=== PATIENT | female | born 1940 | race Caucasian/White ===

== ENCOUNTER 2016-04-30 11:57 | Outpatient (CLI) | payer MEDICARE, OTHER | END 2016-04-30 11:58 | disposition home or self-care (01) | DX: J18.9 Pneumonia, unspecified organism (principal) ==

== ENCOUNTER 2016-07-22 08:02 | Outpatient (CLI) | payer MEDICARE, OTHER ==
[2016-07-22 14:44] LABS: CHOL/HDL RATIO 2.7 (<4.4); CHOLESTEROL 165 mg/dL; HDL CHOLESTEROL 62 mg/dL; LDL/HDL RATIO 1.4 (<4.4); TRIGLYCERIDES 74 mg/dL; VLDL CHOLESTEROL 15 mg/dL
== END 2016-07-22 08:03 | disposition home or self-care (01) ==
LOC: LAB.R 08:02
PROVIDERS: ATTEND Internal Medicine
DX: E78.2 Mixed hyperlipidemia (principal); Z79.899 Other long term (current) drug therapy
CPT/HCPCS: 80061; 84450; 84460

== ENCOUNTER 2017-01-16 08:00 | Outpatient (CLI) | payer MEDICARE, OTHER | END 2017-01-16 08:01 | disposition home or self-care (01) | LOC: LAB.R 08:00 | PROVIDERS: ATTEND Obstetrics & Gynecology | DX: N89.8 Other specified noninflammatory disorders of vagina (principal) | CPT/HCPCS: 87480; 87510; 87660 ==

== ENCOUNTER 2017-02-21 13:55 | Outpatient (CLI) | payer MEDICARE, OTHER | END 2017-02-21 13:56 | disposition home or self-care (01) | LOC: LAB.R 13:55 | PROVIDERS: ATTEND Nurse Practitioner Obstetrics & Gynecology | DX: R82.99 Other abnormal findings in urine (principal) | CPT/HCPCS: 87086 ==

== ENCOUNTER 2017-03-17 08:00 | Outpatient (CLI) | payer MEDICARE, OTHER | END 2017-03-17 08:01 | disposition home or self-care (01) | LOC: LAB.R 08:00 | PROVIDERS: ATTEND Internal Medicine | DX: M79.602 Pain in left arm (principal); R30.0 Dysuria | CPT/HCPCS: 84484; 87077; 87086 ==

== ENCOUNTER 2017-04-28 11:45 | Outpatient (CLI) | payer MEDICARE, OTHER ==
[2017-04-28 12:12] LABS: BASOPHILS % (AUTO) 0.1 %; EOSINOPHILS % (AUTO) 0.3 %; HGB - HEMOGLOBIN 11.5 g/dL (12.0-16.0); LYMPHOCYTES # (AUTO) 1.2 10^3/uL (1.5-3.5); MEAN CORPUSCULAR HGB CONC 32.6 g/dL (32.0-36.0); MEAN CORPUSCULAR VOLUME 88.8 fL (81.0-99.0); MEAN PLATELET VOLUME 7.2 fL (7.9-10.8); MONOCYTES # (AUTO) 0.9 10^3/uL (0.0-1.0); MONOCYTES % (AUTO) 6.2 %; NEUTROPHILS # (AUTO) 12.7 10^3/uL (1.5-6.6); NEUTROPHILS % (AUTO) 85.4 %; PLT - PLATELET COUNT 248 10^3/uL (130-450); RED BLOOD COUNT 3.95 10^6/uL (4.20-5.40); WHITE BLOOD COUNT 14.9 x10^3/uL (4.8-10.8)
[2017-04-28 12:20] LABS: CALCIUM 8.9 mg/dL (8.5-10.3); CREATININE 0.8 mg/dL (0.4-1.0)
--- NOTE | 2017-04-28 13:12 | XRAY Report ---
TWO VIEW CHEST: 04/28/2017 CLINICAL INDICATION: COPD. COMPARISON: 04/30/2016. FINDINGS: Frontal and lateral views of the chest demonstrate a normal cardiac silhouette. Right pleural effusion and associated basilar airspace disease have increased. Emphysematous changes remain. The left lung remains clear. No left effusion is seen. No pneumothorax. IMPRESSION: INCREASING RIGHT PLEURAL EFFUSION AND ASSOCIATED BASILAR AIRSPACE DISEASE FROM 04/30/2016. TD: 04/28/2017 13:03
== END 2017-04-28 11:46 | disposition home or self-care (01) ==
LOC: DI 11:45
PROVIDERS: ATTEND Internal Medicine
DX: J43.9 Emphysema, unspecified (principal); J90 Pleural effusion, not elsewhere classified; J98.4 Other disorders of lung
CPT/HCPCS: 36415; 71046; 80048; 85025

== ENCOUNTER 2017-04-30 20:30 | Inpatient (IN) | payer MEDICARE, OTHER ==
[2017-04-30 21:13] LABS: BASOPHILS % (AUTO) 0.1 %; EOSINOPHILS % (AUTO) 0.3 %; MEAN CORPUSCULAR HEMOGLOBIN 28.1 pg (27.0-31.0); MEAN CORPUSCULAR HGB CONC 31.8 g/dL (32.0-36.0); MEAN CORPUSCULAR VOLUME 88.2 fL (81.0-99.0); MEAN PLATELET VOLUME 7.4 fL (7.9-10.8); MONOCYTES % (AUTO) 8.7 %; NEUTROPHILS # (AUTO) 9.4 10^3/uL (1.5-6.6); NEUTROPHILS % (AUTO) 81.9 %; PLT - PLATELET COUNT 268 10^3/uL (130-450); RED BLOOD COUNT 3.57 10^6/uL (4.20-5.40); RED CELL DISTRIBUTION WIDTH 13.7 % (12.0-15.0); WHITE BLOOD COUNT 11.4 x10^3/uL (4.8-10.8)
[2017-04-30] MEDS ORDERED: IOPAMIDOL-300 100 ML VIAL ONE (21:26)
[2017-04-30 21:32] LABS: ALBUMIN 3.5 g/dL (3.2-5.5); ALKALINE PHOSPHATASE 40 IU/L (42-121); ALT ALANINE AMINOTRANSFERASE 17 IU/L (10-60); AST ASPARTATE AMINOTRANSFERASE 20 IU/L (10-42); BILIRUBIN,TOTAL 1.3 mg/dL (0.2-1.0); BUN - BLOOD UREA NITROGEN 21 mg/dL (6-20); CALCIUM 8.5 mg/dL (8.5-10.3); CARBON DIOXIDE - CO2 25 mmol/L (21-32); CHLORIDE 101 mmol/L (101-111); CREATININE 0.8 mg/dL (0.4-1.0); GFR - MDRD 70 (>89); GLUCOSE 170 mg/dL (70-100); LIPASE < 10 U/L (22-51); PHOSPHORUS 1.7 mg/dL (2.5-4.6); SODIUM 139 mmol/L (135-145); TOTAL PROTEIN 7.1 g/dL (6.7-8.2)
[2017-04-30] MEDS ORDERED: IOPAMIDOL-300 100 ML VIAL IVP ONE (22:05)
[2017-04-30] MEDS ORDERED: KETOROLAC 60 MG/2 ML VIAL IVP STA (22:22)
--- NOTE | 2017-04-30 22:31 | CT Preliminary Report ---
Exam: CT CHEST ANGIO (PE) IMPRESSION: 1. No pulmonary emboli seen. 2. Advanced pulmonary emphysema with worsening pneumonia or aspiration at the right base. Trace right pleural effusion. 3. Possible mild infiltrate at the left base. [facility] SITE ID: [id number]
--- NOTE | 2017-04-30 22:31 | CT Report ---
EXAM: CT ANGIOGRAM CHEST EXAM DATE: 04/30/2017 10:09 PM. CLINICAL HISTORY: Chest pain and shortness of breath. COMPARISON: 12/11/2015 and 12/13/2015. TECHNIQUE: Routine helical imaging was performed through the chest in the pulmonary arterial phase. I V Contrast: Nonionic. Reconstructions: Coronal and sagittal 3-D MIP reconstructions.Sagittal and laurita nal. In accordance with CT protocol optimization, one or more of the following dose reduction techniques w ere utilized for this exam: automated exposure control, adjustment of mA and/or KV based on patient s ize, or use of iterative reconstructive technique. FINDINGS: Pulmonary Arteries: Diagnostic quality: Adequate through the segmental arteries. No evidence for acute or chronic pulmona ry emboli. No evidence of right heart strain. Lungs/Pleura: Advanced pulmonary emphysema. Worsening opacity at the right lung base consistent with pneumonia or aspiration. There may be mild infiltrate at the left base as well. Trace right pleural e ffusion. No pneumothorax. Mediastinum: Heart size is normal. Mild coronary artery calcifications. No lymphadenopathy seen. Thoracic Aorta: Mild to moderate atherosclerosis. No aneurysm or dissection. Upper Abdomen: Right lobe liver cysts. Moderate fatty atrophy of the pancreas. Hyperdense left renal lesion measuring 1.2 cm, which was a hyperdense cyst by prior CT IVP. Other: None. IMPRESSION: 1. No pulmonary emboli seen. 2. Advanced pulmonary emphysema with worsening pneumonia or aspiration at the right base. Trace right pleural effusion. 3. Possible mild infiltrate at the left base. [facility] Referring Provider Line: [phone] SITE ID: [id number]
[2017-04-30] MEDS ORDERED: levoFLOXacin 750 MG/150 ML 750 MG/150 ML BAG IV STA (22:55)
--- NOTE | 2017-04-30 22:55 | ED Physician Documentation ---
PD HPI BACK PAIN - Stated complaint Stated Complaint: SOA/BACK PX - Chief complaint Chief Complaint: General - History obtained from History obtained from: Patient, Family - History of Present Illness Timing - onset: How many days ago (3) Timing - details: Gradual onset, Still present Location: Upper, Left Quality: Pain, Sharp Associated symptoms: No: Fever Similar symptoms before: Work up / diagnostics, Treatment Recently seen: Clinic - Additional information Additional information: Patient is a 89 year old female with emphysema, copd, and who was recently started on antibiotics for pneumonia. Patient states that she has been coughing a lot and tonight she developed severe left sided back pain. Patient states that her cough has not improved even with the antibiotics so she came in to get checked out. Review of Systems Constitutional: denies: Fever Eyes: reports: Reviewed and negative Ears: reports: Reviewed and negative Nose: reports: Reviewed and negative Throat: reports: Reviewed and negative Cardiac: denies: Chest pain / pressure, Palpitations Respiratory: reports: Cough, Wheezing. 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 : None HEENT: None Psych: None Musculoskeletal: None Derm: None - Past Surgical History Past Surgical History: Yes General: Appendectomy, 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: Hysterectomy HEENT: Tonsil/Adenoidectomy - Present Medications Home Medications: Ambulatory Orders Medication Instructions Recorded Confirmed Albuterol Sulfate [Proventil Hfa 1 - 2 inh INH Q4H PRN 12/09/15 12/09/15 Inhaler] Lisinopril 10 mg PO DAILY 12/09/15 12/09/15 Mometasone/Formoterol [Dulera 200 2 inh PO BID 12/09/15 12/09/15 Mcg/5 Mcg Inhaler] Pantoprazole [Protonix] 40 mg PO DAILY 12/09/15 12/09/15 Pramipexole [Mirapex] 0.5 mg PO DAILY 12/09/15 12/09/15 Simvastatin 20 mg PO DAILY 12/09/15 12/09/15 levoFLOXacin [Levofloxacin] 500 mg PO DAILY 12/09/15 12/09/15 Ipratropium/Albuterol [Duoneb] 3 ml INH Q4H PRN #120 neb 12/13/15 Prednisone 10 mg PO DAILY #15 tab.ds.pk 12/13/15 - Allergies Allergies/Adverse Reactions: Allergies Allergy/AdvReac Type Severity Reaction Status Date / Time No Known Drug Allergies Allergy Verified 12/09/15 05:18 - Social History Does the pt smoke?: No Smoking Status: Never smoker Does the pt drink ETOH?: No Does the pt have substance abuse?: No - Immunizations Immunizations are current?: Yes - POLST Patient has POLST: No PD ED PE NORMAL - Vitals Vital signs reviewed: Yes - General General: Alert and oriented X 3 - HEENT HEENT: Atraumatic - Neck Neck: Supple, no meningeal sign, No JVD - Abdomen Abdomen: Soft, Non tender, Non distended - Derm Derm: Normal color, Warm and dry, No rash - Extremities Extremities: No deformity, No calf tenderness / cord - Neuro Neuro: Alert and oriented X 3, No motor deficit, No sensory deficit, Normal speech - Psych Psych: Normal mood PD ED PE EXPANDED - HEENT HEENT: Dry mucous membranes - Cardiac Cardiac: Tachy - Respiratory Respiratory: Labored, Rhonchi, Right upper lobe, Right middle lobe, Right lower lobe, Left upper lobe, Left lower lobe. No: Accessory mm use, Retractions Results - Vitals Vitals: Vital Signs - 24 hr 04/30/17 04/30/17 20:46 22:16 Temperature 37.2 C Heart Rate 125 H 104 H Respiratory 25 H 19 Rate Blood Pressure 117/78 127/107 H O2 Saturation 91 L 95 Oxygen O2 Source Nasal cannula Oxygen Flow Rate 4 - EKG (time done) 2037 Rate: Rate (enter#) (121) Rhythm: Sinus tachycardia [place]: Normal Intervals: Normal [place] Compare to prior EKG: Unchanged from prior EKG - Labs Labs: Laboratory Tests 04/30/17 04/30/17 04/30/17 21:07 21:07 21:07 WBC 11.4 H RBC 3.57 L Hgb 10.0 L Hct 31.4 L MCV 88.2 MCH 28.1 MCHC 31.8 L RDW 13.7 Plt Count 268 MPV 7.4 L Neut # 9.4 H Lymph # 1.0 L [place] # 1.0 Eos # 0.0 Baso # 0.0 Absolute Nucleated RBC 0.00 Nucleated RBC % 0.0 Sodium 139 Potassium 3.9 Chloride 101 Carbon Dioxide 25 Anion Gap 13.0 BUN 21 H Creatinine 0.8 Estimated GFR (MDRD) 70 L Glucose 170 H Calcium 8.5 Phosphorus 1.7 L Magnesium 2.0 Total Bilirubin 1.3 H AST 20 ALT 17 Alkaline Phosphatase 40 L Troponin I < 0.04 B-Natriuretic Peptide Total Protein 7.1 Albumin 3.5 Globulin 3.6 Albumin/Globulin Ratio 1.0 Lipase < 10 L 04/30/17 21:07 WBC RBC Hgb Hct MCV MCH MCHC RDW Plt Count MPV Neut # Lymph # [place] # Eos # Baso # Absolute Nucleated RBC Nucleated RBC % Sodium Potassium Chloride Carbon Dioxide Anion Gap BUN Creatinine Estimated GFR (MDRD) Glucose Calcium Phosphorus Magnesium Total Bilirubin AST ALT Alkaline Phosphatase Troponin I B-Natriuretic Peptide 20 Total Protein Albumin Globulin Albumin/Globulin Ratio Lipase - Rads (name of study) ct angio Radiology: Final report received (fibrotic changes, bilateral pneumonia) PD MEDICAL DECISION MAKING - ED course Complexity details: reviewed old records, reviewed results, re-evaluated patient , considered differential, d/w patient, d/w family, d/w supply chain consultant ED course: Patient was seen and examined at bedside. ekg was performed and showed sinus tach. labs were drawn and imaging was ordered. patient was placed on her supplemental oxygen. When patient returned from imaging the results were reviewed. patient was started on levaquin. patient had bilateral pneumonia and had failed outpatient therapy. Case was discussed with hospitalist and patient was admitted for further evaluation and care. Departure - Departure Disposition: [facility] DC/Xfer Clinical Impression: Pneumonia Condition: Stable
[2017-04-30] MEDS ORDERED: PROCHLORPERAZINE 10 MG/2 ML VIAL IVP PRN (23:01)
[2017-04-30] MEDS ORDERED: SODIUM CHLORIDE FLUSH 0.9% 10 ML SYRINGE IVP PRN (23:01)
[2017-04-30] MEDS ORDERED: TEMAZEPAM 15 MG CAPSULE PO PRN (23:01)
[2017-04-30] MEDS ORDERED: oxyCODONE 5 MG TABLET PO PRN (23:01)
[2017-04-30] MEDS ORDERED: BUDESONIDE/FORMOTEROL 160/4.5 MCG INHALER INH SCH (23:45)
[2017-05-01] MEDS ORDERED: NON FORMULARY MED (Albuterol Sulfate [Proair Hfa Inhaler] 2 PUFFS) INH PRN (00:46)
[2017-05-01] MEDS ORDERED: PHENOL THROAT SPRAY 177 ML MM PRN (01:04)
[2017-05-01] MEDS ORDERED: BENZOCAINE/MENTHOL LOZENGE MM PRN (01:04)
[2017-05-01] MEDS: D5.45NS W/20 MEQ KCL 1,000 ML IV SCH ×3 (01:22→21:09)
[2017-05-01] MEDS: ATORVASTATIN 10 MG TABLET PO SCH ×3 (01:22→20:14)
[2017-05-01] MEDS: cefTRIAXone 2 GM in SODIUM CHLORIDE 0.9% MINIBAG 100 ML IV SCH (01:24)
[2017-05-01] MEDS: SODIUM CHLORIDE FLUSH 0.9% 10 ML SYRINGE IVP SCH ×3 (01:25→20:21)
[2017-05-01] MEDS ORDERED: ALBUTEROL 6.7 GM INHALER INH PRN ×2 (01:34→07:29)
[2017-05-01] MEDS: IPRATROPIUM/ALBUTEROL 3 ML NEB INH SCH ×5 (01:38→23:11)
[2017-05-01] MEDS ORDERED: IBUPROFEN 600 MG TABLET PO ONE (02:18)
[2017-05-01] MEDS: IBUPROFEN 600 MG TABLET PO SCH ×4 (02:58→21:16)
--- NOTE | 2017-05-01 07:16 | HISTORY & PHYSICAL EXAMINATION ---
Chief Complaint - Chief Complaint Chief Complaint: shortness of breath History of Present Illness - Admitted From Admitted From:: home - History Obtained From History obtained from: patient - History of Present Illness HPI Comment/Other: Mrs. Paulette Gomez is a very pleasant 77 year old lady who has a long history of COPD , for which she has been oxygen dependant for 7 years. She currently uses about 4-1/2 L/m continuously at home. About a week ago the patient had some difficulty with an upper respiratory infection and sought her primary care physician, Dr. Tyler. Dr. Tyler put her on azithromycin and unfortunately this was ineffective and she came back 3 days later with back pain; subsequent testing found the patient to be suffering from bilateral pneumonia and an acute exacerbation of her COPD. She was admitted to the medical surgical floor, placed on IV antibiotics, steroids, and supplemental oxygen. 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 HEENT: reports: Tonsil/Adenoidectomy - POLST Patient has POLST: No Meds/Allgy - Home Medications Home Medications: Ambulatory Orders Medication Instructions Recorded Confirmed Lisinopril 10 mg PO DAILY 12/09/15 05/01/17 Mometasone/Formoterol [Dulera 200 2 puffs INH BID 12/09/15 05/01/17 Mcg/5 Mcg Inhaler] Pantoprazole [Protonix] 40 mg PO QDAC 12/09/15 05/01/17 Simvastatin 20 mg PO QPM 12/09/15 05/01/17 Albuterol Sulfate [Proair Hfa 2 puffs INH Q4H PRN 05/01/17 05/01/17 Inhaler] [place]-3/Dha/Epa/Fish Oil [Fish Oil 2 each PO DAILY 05/01/17 05/01/17 1,000 mg Softgel] Tiotropium [place] [Spiriva] 1 puffs INH DAILY 05/01/17 05/01/17 - Allergies Allergies/Adverse Reactions: Allergies Allergy/AdvReac Type Severity Reaction Status Date / Time oxycodone AdvReac Severe Nausea Verified 05/01/17 21:08 Review of Systems - Constitutional Constitutional: denies: Fatigue, Fever, Chills, Malaise, Weakness - Eyes Eyes: denies: Pain, Irritation, Amaurosis, Blurred vision, Dipolpia - Ears, Nose & Throat Ears, Nose & Throat: denies: Ear pain, Hearing loss, Hearing aids, Tinnitus, Vertigo, Nasal pain, Nasal discharge - Cardiovascular Cariovascular: reports: Palpitations, Edema. denies: Chest pain, Syncope, Orthopnea - Respiratory Respiratory: reports: Cough, Sputum production, SOB at rest, SOB with exertion. denies: Wheezing, Snoring, Hemoptysis, Orthopnea - Gastrointestinal Gastrointestinal: denies: Abdominal pain, Abdominal distention, Constipation, Diarrhea - Genitourinary Genitourinary: denies: Dysuria, Frequency, Urgency, Hematuria - Musculoskeletal Musculoskeletal: denies: Muscle pain, Back pain, Muscle aches, Stiffness - Integumentary Integumentary: denies: Rash, Pruritis, Lesions, Dryness - Neurological Neurological: denies: General weakness, Focal weakness, Headache, Dizziness - Psychiatric Psychiatric: denies: Depression, Anxiety, Suicidal, Hallucinations - Endocrine Endocrine: denies: Polyuria, Polydypsia, Polyphagia - Hematologic/Lymphatic Hematologic/Lymphatic: denies: Anemia, Bruising, Petechiae, Lymphadenopathy - All Other Systems All Other Systems: reports: Reviewed and negative Exam - Vital Signs Reviewed Vital Signs: Yes Vital Signs: Vital Signs x48h Temp Pulse Pulse Resp BP BP Pulse Ox 05/01/17 06:10 37.0 C 85 18 114/59 L 94 05/01/17 01:42 95 20 05/01/17 00:10 37.3 C 113 H 22 142/61 H 94 - Physical Exam General Appearance: positive: No acute distress, Alert Eyes Bilateral: positive: Normal inspection, PERRL, EOMI, No lid inflammation, Conjunctivae nml, No scleral icterus ENT: positive: ENT inspection nml, Pharynx nml, No signs of dehydration Neck: positive: Nml inspection, Thyroid nml, No JVD, Trachea midline. negative : Thyromegaly Respiratory: positive: Chest non-tender, Wheezes, Rales. negative: Rhonchi Cardiovascular: positive: Regular rate & rhythm, No murmur, No gallop Peripheral Pulses: positive: 1+ Abdomen: positive: Non-tender, No organomegaly, Nml bowel sounds, No distention. negative: Guarding, Rebound Back: positive: Nml inspection. negative: CVA tenderness (R), CVA tenderness (L ) Skin: positive: Color nml, No rash, Warm, Dry. negative: Cyanosis Extremities: positive: Non-tender, Full ROM, Nml appearance, No pedal edema Neurologic/Psychiatric: positive: Oriented x3, CN's nml (2-12), Motor nml, Sensation nml, Mood/affect nml Conclusion/Plan - Problem List (1) COPD exacerbation Conclusion/Plan: I will start the patient on bronchodilators and steroids. She will also get supplemental oxygen as needed. We will also treat the patient for presumed pneumonia which may be the etiology of the exacerbation. (2) HTN (hypertension) Conclusion/Plan: Slightly elevated, continue lisinopril. (3) Hypercholesteremia Conclusion/Plan: Continue omega-3 fatty acids and simvastatin. (4) Pneumonia Conclusion/Plan: We will treat the patient for presumed pneumonia with ceftriaxone and azithromycin. Patient will also receive bronchodilators, supplemental oxygen, and steroids. - Lab Results Lab results reviewed: Yes Fish Bones: 04/30/17 21:07 04/30/17 21:07 - Diagnostic Imaging Results Diagnostic Imaging Results: positive: Final report reviewed Diagnostic Imaging Results Comments: TWO VIEW CHEST: 04/28/2017 CLINICAL INDICATION: COPD. COMPARISON: 04/30/2016. FINDINGS: Frontal and lateral views of the chest demonstrate a normal cardiac silhouette. Right pleural effusion and associated basilar airspace disease have increased. Emphysematous changes remain. The left lung remains clear. No left effusion is seen. No pneumothorax. IMPRESSION: INCREASING RIGHT PLEURAL EFFUSION AND ASSOCIATED BASILAR AIRSPACE DISEASE FROM 04/30/2016. EXAM: CT ANGIOGRAM CHEST EXAM DATE: 04/30/2017 10:09 PM. CLINICAL HISTORY: Chest pain and shortness of breath. COMPARISON: 12/11/2015 and 12/13/2015. TECHNIQUE: Routine helical imaging was performed through the chest in the pulmonary arterial phase. IV Contrast: Nonionic. Reconstructions: Coronal and sagittal 3-D MIP reconstructions.Sagittal and coronal. In accordance with CT protocol optimization, one or more of the following dose reduction techniques were utilized for this exam: automated exposure control, adjustment of mA and/or KV based on patient size, or use of iterative reconstructive technique. FINDINGS: Pulmonary Arteries: Diagnostic quality: Adequate through the segmental arteries. No evidence for acute or chronic pulmonary emboli. No evidence of right heart strain. Lungs/Pleura: Advanced pulmonary emphysema. Worsening opacity at the right lung base consistent with pneumonia or aspiration. There may be mild infiltrate at the left base as well. Trace right pleural effusion. No pneumothorax. Mediastinum: Heart size is normal. Mild coronary artery calcifications. No lymphadenopathy seen. Thoracic Aorta: Mild to moderate atherosclerosis. No aneurysm or dissection. Upper Abdomen: Right lobe liver cysts. Moderate fatty atrophy of the pancreas. Hyperdense left renal lesion measuring 1.2 cm, which was a hyperdense cyst by prior CT IVP. Other: None. IMPRESSION: 1. No pulmonary emboli seen. 2. Advanced pulmonary emphysema with worsening pneumonia or aspiration at the right base. Trace right pleural effusion. 3. Possible mild infiltrate at the left base. Core Measures - Anticipated LOS I expect patient to be DC'd or transferred within 96 hours.: Yes - DVT/VTE - Prophylaxis VTE/DVT Device ordered at admit?: Yes
[2017-05-01] MEDS ORDERED: BUDESONIDE 0.5 MG/2 ML NEB INH SCH (07:30)
[2017-05-01] MEDS ORDERED: ALBUTEROL NEB 2.5 MG/3 ML INH PRN (07:30)
[2017-05-01] MEDS ORDERED: FORMOTEROL FUMARATE NEB 20 MCG/2 ML INH SCH (07:30)
[2017-05-01] MEDS ORDERED: IPRATROPIUM 0.2 MG/ML NEB INH SCH (07:30)
--- NOTE | 2017-05-01 08:17 | PROVIDER PROGRESS NOTE ---
Subjective - Prog Note Date Prog Note Date: 05/01/17 Prog Note Time: 08:16 - Subjective Pt reports feeling: Improved Subjective: Paulette has been quite tired today and had a "bad" reaction to oxycodone which caused uncontrolled nausea with vomiting. She has since been exhausted and sleeping comfortably. She denies pain. Current Medications - Current Medications Current Medications: Active Medications Albuterol () 2.5 mg INH RTQ4H PRN PRN Reason: Wheezing Albuterol/Ipratropium (Duoneb) 3 ml INH Q6H [facility] Last Admin: 05/01/17 16:48 Dose: Not Given Atorvastatin Calcium (Lipitor) 10 mg PO QPM [facility] Last Admin: 05/01/17 01:25 Dose: Not Given Potassium Chloride/Dextrose/Sod Cl (D5.45ns W/20 Meq Kcl) 1,000 mls @ 100 mls/ hr IV .Q10H [facility] Last Admin: 05/01/17 11:16 Dose: 100 mls/hr Ceftriaxone Sodium 2 gm/ (Sodium Chloride) 100 mls @ 200 mls/hr IV Q24H [facility] Last Infusion: 05/01/17 02:24 Dose: Infused Levofloxacin (Levaquin 500 Mg/100 Ml) 500 mg in 100 mls @ 100 mls/hr IV Q24H [facility] Ibuprofen (Motrin) 600 mg PO Q6HR [facility] Last Admin: 05/01/17 11:43 Dose: Not Given Lisinopril (Zestril) 10 mg PO DAILY [facility] Last Admin: 05/01/17 10:10 Dose: Not Given Ppdls-5-Womr Ethyl Esters (Lovaza) 2 gm PO DAILY [facility] Last Admin: 05/01/17 10:10 Dose: Not Given Ondansetron HCl (Zofran Inj) 4 mg IVP Q4HR PRN PRN Reason: Nausea / Vomiting Last Admin: 05/01/17 11:20 Dose: 4 mg Pantoprazole Sodium (Protonix) 40 mg PO DAILY [facility] Last Admin: 05/01/17 10:10 Dose: Not Given Spiriva [place] 1 each INH RTDAILY [facility] Last Admin: 05/01/17 11:41 Dose: 1 each [place] Inhaler ( (200mcg/5mcg)) 2 each INH RTBID [facility] Last Admin: 05/01/17 11:41 Dose: 2 each Phenol/Menthol (Chloraseptic) 2 sprays MM Q2HR PRN PRN Reason: Throat Pain Polyethylene Glycol (Miralax) 17 gm PO DAILY [facility] Last Admin: 05/01/17 10:10 Dose: Not Given Pramipexole Dihydrochloride (Mirapex) 0.5 mg PO DAILY [facility] Last Admin: 05/01/17 10:11 Dose: Not Given [facility] (Delt[facility]) [facility] Admin: 05/01/17 10:10 Dose: Not Given Prochlorperazine Edisylate (Compazine Inj) 10 mg IVP Q6HR PRN PRN Reason: Nausea / Vomiting Last Admin: 05/01/17 08:02 Dose: 10 mg Sodium Chloride (Normal Saline Flush 0.9%) 10 ml IVP PRN PRN PRN Reason: NEEDED PER PROVIDER ORDERS Sodium Chloride (Normal Saline Flush 0.9%) 10 ml IVP 0100,0900,1700 [facility] Last Admin: 05/01/17 08:04 Dose: 10 ml Temazepam (Restoril) 15 mg PO QPM PRN PRN Reason: Insomnia Throat Lozenges (Cepacol) 1 lozenge MM Q2HR PRN PRN Reason: Throat pain Lisinopril 10 mg PO DAILY 12/09/15 Mometasone/Formoterol [Dulera 200 Mcg/5 Mcg Inhaler] 2 puffs INH BID 12/09/15 Pantoprazole [Protonix] 40 mg PO QDAC 12/09/15 Simvastatin 20 mg PO QPM 12/09/15 Albuterol Sulfate [Proair Hfa Inhaler] 2 puffs INH Q4H PRN 05/01/17 [place]-3/Dha/Epa/Fish Oil [Fish Oil 1,000 mg Softgel] 2 each PO DAILY 05/01/17 Tiotropium [place] [Spiriva] 1 puffs INH DAILY 05/01/17 Objective - Vital Signs/Intake & Output Reviewed Vital Signs: Yes Vital Signs: Vital Signs x48h Temp Pulse Pulse Resp BP Pulse Ox 05/01/17 07:51 36.5 C 78 18 134/48 H 93 05/01/17 06:10 37.0 C 85 18 114/59 L 94 05/01/17 01:42 95 20 Intake & Output: Intake & Output 02/26/18 02/27/18 02/28/18 03/01/18 23:59 23:59 23:59 23:59 Intake Total 750 Balance 750 - Objective General Appearance: positive: No acute distress, Lethargic Eyes Bilateral: positive: Normal inspection ENT: positive: ENT inspection nml, No signs of dehydration Neck: positive: Nml inspection, Trachea midline Respiratory: positive: Chest non-tender, Wheezes, Rhonchi Cardiovascular: positive: Regular rate & rhythm, Systolic murmur, Decreased pulse(s) Peripheral Pulses: 2+ Radial (R), 2+ Radial (L) Abdomen: positive: Non-tender, No organomegaly, Nml bowel sounds, No distention Back: positive: Nml inspection Skin: positive: No rash, Warm, Dry, Pallor Extremities: positive: Non-tender, Full ROM, Nml appearance, No pedal edema Neurologic/Psychiatric: positive: Oriented x3, CN's nml (2-12), Weakness, Depressed mood/affect Reflexes: Bicep (R): 2+, Bicep (L): 2+ - Lab Results Fish Bones: 05/02/17 12:48 05/02/17 12:48 - Diagnostic Imaging Diagnostic Imaging Results: positive: Final report reviewed Assessment/Plan - Problem List (1) COPD exacerbation Impression: Upon imaging, a chest CT shows advanced pulmonary emphysema. She takes a LABA and a rescue inhaler at home. She remains with low activity tolerance. She continues to wear 2-4L nasal cannula at home. Plan: Continue supplemental O2, nebs, steroids, and flutter valve per RT. (2) Pneumonia Impression: A chest CT completed on 04/30/17 suggests a Left mid-base infiltrate. In addition, worsening right lower lobe pneumonia in the base. Plan: Continue IV antibiotics, and start IV steroids as her chest tightness remains. Qualifiers: Laterality: bilateral (3) HTN (hypertension) Impression: Patient's blood pressure has remained mildly elevated. She has a history of HTN and takes lisinopril at home. Plan: Continue current plan with monitoring vital signs. (4) Hypercholesteremia Impression: Patient generally takes a statin at home as she has a history of hyperlipidemia. Plan: Continue medications.
[2017-05-01] MEDS ORDERED: NON FORMULARY MED (Simvastatin [Simvastatin] 20 MG) PO SCH (09:00)
[2017-05-01] MEDS ORDERED: PANTOPRAZOLE 40 MG TABLET PO SCH (09:00)
[2017-05-01] MEDS ORDERED: LISINOPRIL 5 MG TABLET PO SCH (09:00)
[2017-05-01] MEDS ORDERED: MOMETASONE PO SCH (09:00)
[2017-05-01] MEDS ORDERED: FORMOTEROL PO SCH (09:00)
[2017-05-01] MEDS ORDERED: NON FORMULARY MED (Lisinopril [Lisinopril] 10 MG) PO SCH (09:00)
[2017-05-01] MEDS ORDERED: PREDNISONE 10 MG PO SCH (09:00)
[2017-05-01] MEDS ORDERED: ONDANSETRON 4 MG/2 ML VIAL IVP PRN (10:05)
[2017-05-01] MEDS: OMEGA-3 ACID ETHYL ESTERS 1 GM CAPSULE PO SCH (10:10)
[2017-05-01] MEDS: POLYETHYLENE GLYCOL 3350 17 GM PACKET PO SCH (10:10)
[2017-05-01] MEDS: predniSONE 10 MG TABLET PO SCH (10:10)
[2017-05-01] MEDS: PRAMIPEXOLE 0.25 MG TABLET PO SCH (10:11)
[2017-05-01] MEDS: SPIRIVA HANDIHALER INH SCH (11:41)
[2017-05-01] MEDS: [UNRECOGNIZED DRUG - OTHER] INH SCH ×2 (11:41→20:22)
[2017-05-01] MEDS: LISINOPRIL 5 MG TABLET PO SCH (20:30)
[2017-05-01] MEDS: levoFLOXacin 500 MG/100 ML 500 MG/100 ML BAG IV SCH (22:25)
[2017-05-02] MEDS: IBUPROFEN 600 MG TABLET PO SCH ×5 (00:04→23:18)
[2017-05-02] MEDS: cefTRIAXone 2 GM in SODIUM CHLORIDE 0.9% MINIBAG 100 ML IV SCH (01:26)
[2017-05-02] MEDS: SODIUM CHLORIDE FLUSH 0.9% 10 ML SYRINGE IVP SCH ×4 (02:09→23:19)
[2017-05-02] MEDS: PANTOPRAZOLE 40 MG TABLET PO SCH (06:34)
[2017-05-02] MEDS: SPIRIVA HANDIHALER INH SCH (07:54)
[2017-05-02] MEDS: [UNRECOGNIZED DRUG - OTHER] INH SCH ×2 (07:54→22:04)
[2017-05-02] MEDS: D5.45NS W/20 MEQ KCL 1,000 ML IV SCH (09:33)
[2017-05-02] MEDS: OMEGA-3 ACID ETHYL ESTERS 1 GM CAPSULE PO SCH (09:44)
[2017-05-02] MEDS: POLYETHYLENE GLYCOL 3350 17 GM PACKET PO SCH (09:45)
[2017-05-02] MEDS: predniSONE 10 MG TABLET PO SCH (09:45)
[2017-05-02] MEDS: PRAMIPEXOLE 0.25 MG TABLET PO SCH (09:45)
[2017-05-02] MEDS: IPRATROPIUM/ALBUTEROL 3 ML NEB INH SCH ×3 (12:06→18:23)
--- NOTE | 2017-05-02 12:24 | PROVIDER PROGRESS NOTE ---
Subjective - Prog Note Date Prog Note Date: 05/02/17 Prog Note Time: 12:22 - Subjective Pt reports feeling: Improved Subjective: Paulette complains of left lateral chest wall pain that becomes worse with palpation, or deep breaths. She claims that this began after a coughing spell. She does not appreciate her cardiac diet. She denies associated symptoms. Current Medications - Current Medications Current Medications: Active Medications Albuterol () 2.5 mg INH RTQ4H PRN PRN Reason: Wheezing Albuterol/Ipratropium (Duoneb) 3 ml INH Q6H REPLACED BY [facility] Last Admin: 05/02/17 12:06 Dose: Not Given Atorvastatin Calcium (Lipitor) 10 mg PO QPM REPLACED BY [facility] Last Admin: 05/01/17 20:14 Dose: 10 mg Ceftriaxone Sodium 2 gm/ (Sodium Chloride) 100 mls @ 200 mls/hr IV Q24H REPLACED BY [facility] Last Infusion: 05/02/17 02:00 Dose: Infused Levofloxacin (Levaquin 500 Mg/100 Ml) 500 mg in 100 mls @ 100 mls/hr IV Q24H REPLACED BY [facility] Last Infusion: 05/02/17 00:00 Dose: Infused Ibuprofen (Motrin) 600 mg PO Q6HR REPLACED BY [facility] Last Admin: 05/02/17 12:18 Dose: 600 mg Lisinopril (Zestril) 10 mg PO QPM REPLACED BY [facility] Last Admin: 05/01/17 20:30 Dose: 10 mg Methylprednisolone (Solu-Medrol (40mg Vial)) 40 mg IVP TID REPLACED BY [facility] Wbian-3-Ebep Ethyl Esters (Lovaza) 2 gm PO DAILY REPLACED BY [facility] Last Admin: 05/02/17 09:44 Dose: 2 gm Ondansetron HCl (Zofran Inj) 4 mg IVP Q4HR PRN PRN Reason: Nausea / Vomiting Last Admin: 05/01/17 11:20 Dose: 4 mg Pantoprazole Sodium (Protonix) 40 mg PO QDAC REPLACED BY [facility] Last Admin: 05/02/17 06:34 Dose: 40 mg Spiriva Handihaler 1 each INH RTDAILY REPLACED BY [facility] Last Admin: 05/02/17 07:54 Dose: 1 each [place] Inhaler ( (200mcg/5mcg)) 2 each INH RTBID REPLACED BY [facility] Last Admin: 05/02/17 07:54 Dose: 2 each Phenol/Menthol (Chloraseptic) 2 sprays MM Q2HR PRN PRN Reason: Throat Pain Polyethylene Glycol (Miralax) 17 gm PO DAILY REPLACED BY [facility] Last Admin: 05/02/17 09:45 Dose: 17 gm Pramipexole Dihydrochloride (Mirapex) 0.5 mg PO DAILY REPLACED BY [facility] Last Admin: 05/02/17 09:45 Dose: Not Given Prochlorperazine Edisylate (Compazine Inj) 10 mg IVP Q6HR PRN PRN Reason: Nausea / Vomiting Last Admin: 05/01/17 08:02 Dose: 10 mg Sodium Chloride (Normal Saline Flush 0.9%) 10 ml IVP PRN PRN PRN Reason: NEEDED PER PROVIDER ORDERS Sodium Chloride (Normal Saline Flush 0.9%) 10 ml IVP 0100,0900,1700 REPLACED BY [facility] Last Admin: 05/02/17 09:48 Dose: Not Given Sodium Chloride ([place]) 2 sprays TEAGAN BID REPLACED BY [facility] Temazepam (Restoril) 15 mg PO QPM PRN PRN Reason: Insomnia Throat Lozenges (Cepacol) 1 lozenge MM Q2HR PRN PRN Reason: Throat pain Lisinopril 10 mg PO DAILY 12/09/15 Mometasone/Formoterol [Dulera 200 Mcg/5 Mcg Inhaler] 2 puffs INH BID 12/09/15 Pantoprazole [Protonix] 40 mg PO QDAC 12/09/15 Simvastatin 20 mg PO QPM 12/09/15 Albuterol Sulfate [Proair Hfa Inhaler] 2 puffs INH Q4H PRN 05/01/17 [place]-3/Dha/Epa/Fish Oil [Fish Oil 1,000 mg Softgel] 2 each PO DAILY 05/01/17 Tiotropium [place] [Spiriva] 1 puffs INH DAILY 05/01/17 Objective - Vital Signs/Intake & Output Reviewed Vital Signs: Yes Vital Signs: Vital Signs x48h Temp Pulse Pulse Resp BP Pulse Ox 05/02/17 08:03 95 20 05/02/17 08:00 36.5 C 96 20 123/52 L 94 Intake & Output: Intake & Output 04/29/17 04/30/17 05/01/17 05/02/17 23:59 23:59 23:59 23:59 Intake Total 3488.333 1320 Output Total 400 400 Balance 3088.333 920 - Objective General Appearance: positive: No acute distress, Alert Eyes Bilateral: positive: Normal inspection, PERRL Eyes: OU Conjunctivae pale ENT: positive: ENT inspection nml, Pharynx nml, No signs of dehydration Neck: positive: Nml inspection, Thyroid nml, Stiff neck Respiratory: positive: Chest non-tender, Wheezes, Rhonchi Cardiovascular: positive: Irregularly irregular, Systolic murmur, Decreased pulse(s) Peripheral Pulses: 1+ Radial (R), 1+ Radial (L) Abdomen: positive: Non-tender, Nml bowel sounds, Hepatomegaly Back: positive: Nml inspection Skin: positive: No rash, Warm, Dry Extremities: positive: Non-tender, Full ROM, Nml appearance, No pedal edema Neurologic/Psychiatric: positive: Oriented x3, CN's nml (2-12), Motor nml, Sensation nml Reflexes: Bicep (R): 3+, Bicep (L): 3+ - Lab Results Fish Bones: 05/02/17 12:48 05/02/17 12:48 - Diagnostic Imaging Diagnostic Imaging Results: positive: Final report reviewed Assessment/Plan - Problem List (1) COPD exacerbation Impression: Patient is oxygen dependent at home and has increased needs lately. She also claims to have a chronic cough, that is non-productive most of the time. Plan: Continue oxygen supplementation, steroids, antibiotics. (2) Pneumonia Impression: A chest CT completed on 04/30/17 suggests a Left mid-base infiltrate. In addition, worsening right lower lobe pneumonia in the base. Plan: Continue IV antibiotics, and start IV steroids as her chest tightness remains. Qualifiers: Laterality: bilateral (3) HTN (hypertension) Impression: Patient's blood pressure has remained mildly elevated. She has a history of HTN and takes lisinopril at home. Plan: Continue current plan with monitoring vital signs. (4) Hypercholesteremia Impression: Patient generally takes a statin at home as she has a history of hyperlipidemia. Plan: Continue medications.
[2017-05-02 12:58] LABS: BASOPHILS % (AUTO) 0.3 %; EOSINOPHILS # (AUTO) 0.1 10^3/uL (0.0-0.7); EOSINOPHILS % (AUTO) 0.7 %; HGB - HEMOGLOBIN 9.4 g/dL (12.0-16.0); LYMPHOCYTES # (AUTO) 0.5 10^3/uL (1.5-3.5); LYMPHOCYTES % (AUTO) 5.6 %; MEAN CORPUSCULAR HEMOGLOBIN 29.1 pg (27.0-31.0); MEAN PLATELET VOLUME 7.6 fL (7.9-10.8); MONOCYTES # (AUTO) 0.7 10^3/uL (0.0-1.0); MONOCYTES % (AUTO) 7.5 %; NEUTROPHILS # (AUTO) 7.8 10^3/uL (1.5-6.6); NEUTROPHILS % (AUTO) 85.9 %; PLT - PLATELET COUNT 255 10^3/uL (130-450); RED BLOOD COUNT 3.24 10^6/uL (4.20-5.40); RED CELL DISTRIBUTION WIDTH 13.9 % (12.0-15.0); WHITE BLOOD COUNT 9.1 x10^3/uL (4.8-10.8)
[2017-05-02 13:06] LABS: ALBUMIN 3.1 g/dL (3.2-5.5); ALBUMIN/GLOBULIN RATIO 0.9 (1.0-2.2); BILIRUBIN,TOTAL 0.5 mg/dL (0.2-1.0); CALCIUM 8.2 mg/dL (8.5-10.3); CREATININE 0.6 mg/dL (0.4-1.0); MAGNESIUM 1.9 mg/dL (1.7-2.8); TOTAL PROTEIN 6.4 g/dL (6.7-8.2)
[2017-05-02] MEDS: SODIUM CHLORIDE 0.65% NASAL SPRAY NAS SCH ×2 (14:07→22:01)
[2017-05-02] MEDS: methylPREDNISolone SUCCINATE 40 MG/ML VIAL IVP SCH ×3 (14:07→21:58)
[2017-05-02] MEDS: LISINOPRIL 5 MG TABLET PO SCH (21:58)
[2017-05-02] MEDS: ATORVASTATIN 10 MG TABLET PO SCH (22:01)
[2017-05-02] MEDS: levoFLOXacin 500 MG/100 ML 500 MG/100 ML BAG IV SCH (23:21)
[2017-05-03] MEDS: cefTRIAXone 2 GM in SODIUM CHLORIDE 0.9% MINIBAG 100 ML IV SCH (00:28)
[2017-05-03] MEDS: IPRATROPIUM/ALBUTEROL 3 ML NEB INH SCH ×2 (05:45)
[2017-05-03] MEDS: IBUPROFEN 600 MG TABLET PO SCH ×4 (06:05→23:46)
[2017-05-03] MEDS: methylPREDNISolone SUCCINATE 40 MG/ML VIAL IVP SCH (06:06)
[2017-05-03] MEDS: PANTOPRAZOLE 40 MG TABLET PO SCH (06:06)
[2017-05-03] MEDS: [UNRECOGNIZED DRUG - OTHER] INH SCH ×2 (08:00→22:41)
[2017-05-03] MEDS: SPIRIVA HANDIHALER INH SCH (08:00)
[2017-05-03] MEDS: POLYETHYLENE GLYCOL 3350 17 GM PACKET PO SCH (08:34)
[2017-05-03] MEDS: OMEGA-3 ACID ETHYL ESTERS 1 GM CAPSULE PO SCH (08:34)
[2017-05-03] MEDS: PRAMIPEXOLE 0.25 MG TABLET PO SCH (08:35)
[2017-05-03] MEDS: SODIUM CHLORIDE FLUSH 0.9% 10 ML SYRINGE IVP SCH ×2 (10:28→17:37)
[2017-05-03] MEDS: SODIUM CHLORIDE 0.65% NASAL SPRAY NAS SCH ×2 (10:28→21:10)
[2017-05-03] MEDS ORDERED: FLUCONAZOLE 100 MG TABLET PO ONE (13:47)
[2017-05-03] MEDS: NYSTATIN 500000 UNITS/5 ML UDC PO SCH ×3 (14:10→21:18)
[2017-05-03] MEDS: CALCIUM CARBONATE CHEW 500 MG TABLET PO SCH ×2 (14:10→21:09)
[2017-05-03] MEDS: LORazepam 0.5 MG TABLET PO PRN ×2 (16:11→22:42)
[2017-05-03] MEDS ORDERED: methylPREDNISolone SUCCINATE 40 MG/ML VIAL IVP SCH (21:00)
[2017-05-03] MEDS: ATORVASTATIN 10 MG TABLET PO SCH (21:09)
[2017-05-03] MEDS: LISINOPRIL 5 MG TABLET PO SCH (21:09)
[2017-05-03] MEDS: levoFLOXacin 500 MG/100 ML 500 MG/100 ML BAG IV SCH (22:41)
[2017-05-04] MEDS: cefTRIAXone 2 GM in SODIUM CHLORIDE 0.9% MINIBAG 100 ML IV SCH (00:02)
[2017-05-04] MEDS ORDERED: MAGNESIUM HYDROXIDE 2,400 MG/30 ML UDC PO ONE (06:43)
[2017-05-04] MEDS: IBUPROFEN 600 MG TABLET PO SCH ×2 (06:57→12:12)
[2017-05-04] MEDS: PANTOPRAZOLE 40 MG TABLET PO SCH (06:58)
[2017-05-04] MEDS: SODIUM CHLORIDE FLUSH 0.9% 10 ML SYRINGE IVP SCH ×2 (06:58→09:02)
[2017-05-04 07:00] LABS: BASOPHILS % (AUTO) 0.2 %; HGB - HEMOGLOBIN 9.2 g/dL (12.0-16.0); LYMPHOCYTES # (AUTO) 1.4 10^3/uL (1.5-3.5); LYMPHOCYTES % (AUTO) 10.9 %; MEAN CORPUSCULAR HEMOGLOBIN 28.7 pg (27.0-31.0); MEAN CORPUSCULAR HGB CONC 32.7 g/dL (32.0-36.0); MEAN CORPUSCULAR VOLUME 87.9 fL (81.0-99.0); MEAN PLATELET VOLUME 7.5 fL (7.9-10.8); MONOCYTES # (AUTO) 0.7 10^3/uL (0.0-1.0); MONOCYTES % (AUTO) 5.6 %; NEUTROPHILS # (AUTO) 10.8 10^3/uL (1.5-6.6); NEUTROPHILS % (AUTO) 83.3 %; PLT - PLATELET COUNT 350 10^3/uL (130-450); RED BLOOD COUNT 3.21 10^6/uL (4.20-5.40); RED CELL DISTRIBUTION WIDTH 13.7 % (12.0-15.0); WHITE BLOOD COUNT 12.9 x10^3/uL (4.8-10.8)
[2017-05-04] MEDS: SPIRIVA HANDIHALER INH SCH (07:02)
[2017-05-04] MEDS: [UNRECOGNIZED DRUG - OTHER] INH SCH (07:02)
[2017-05-04 07:14] LABS: ALBUMIN 2.9 g/dL (3.2-5.5); ALBUMIN/GLOBULIN RATIO 0.8 (1.0-2.2); BILIRUBIN,TOTAL 0.3 mg/dL (0.2-1.0); CALCIUM 8.6 mg/dL (8.5-10.3); CREATININE 0.7 mg/dL (0.4-1.0); MAGNESIUM 2.1 mg/dL (1.7-2.8); TOTAL PROTEIN 6.4 g/dL (6.7-8.2)
[2017-05-04] MEDS ORDERED: predniSONE 20 MG TABLET PO SCH (08:00)
[2017-05-04 08:16] VITALS: BP 152/72
[2017-05-04] MEDS: NYSTATIN 500000 UNITS/5 ML UDC PO SCH ×2 (09:01→13:17)
[2017-05-04] MEDS: POLYETHYLENE GLYCOL 3350 17 GM PACKET PO SCH (09:01)
[2017-05-04] MEDS: CALCIUM CARBONATE CHEW 500 MG TABLET PO SCH (09:01)
[2017-05-04] MEDS: levoFLOXacin 250 MG TABLET PO SCH ×2 (09:02→09:27)
[2017-05-04] MEDS: PRAMIPEXOLE 0.25 MG TABLET PO SCH (09:02)
[2017-05-04] MEDS: SODIUM CHLORIDE 0.65% NASAL SPRAY NAS SCH (09:02)
[2017-05-04] MEDS: OMEGA-3 ACID ETHYL ESTERS 1 GM CAPSULE PO SCH (09:02)
--- NOTE | 2017-05-04 14:27 | Discharge Plan ---
Discharge Plan Disposition: Home, Self Care Condition: Stable Prescriptions: Benzonatate [Tessalon Perle] 100 mg PO TID PRN #30 capsule PRN Reason: Cough levoFLOXacin [Levaquin] 750 mg PO DAILY 3 Days #3 tablet LORazepam [Ativan] 0.25 mg PO Q6H PRN #5 tablet PRN Reason: Anxiety Nystatin 100,000 unit PO ACHS #230 ml predniSONE [Deltasone] 20 mg PO DAILYWM 2 Days #2 tablet Diet: Regular Activity Restrictions: Activity as Tolerated Shower Restrictions: No Weight Bearing: Full Weight Additional Instructions or Follow Up instructions: You had pneumonia, you have been treated with antibiotics, steroids and nebulizers and are improving. You will finish oral levaquin and prednisone Use ativan (lorazepam) for severe shortness of breath or anxiety related to your breathing. As needed cough suppressants: tessalon perles (Rx), OTC robitussin DM, cough drops Continue your home inhalers and oxygen at 4L Avoid irritants like smoke/chemicals No Smoking: If you smoke, Please STOP! Call for help. Follow-up with: Yang Tyler MD [Primary Care Provider] - 1 Week
--- NOTE | 2017-05-04 14:32 | DISCHARGE SUMMARY ---
Discharge Summary Admit Date: 04/30/17 Discharge Date: 05/04/17 Discharging Provider: Venice Del Real [employer] Primary Care Provider: Yang Tyler MD Code Status: Attempt Resuscitation Condition at Discharge: Stable Discharge Disposition: 01 Home, Self Care - DIAGNOSES Admission Diagnoses: 1. Community acquired pneumonia 2. COPD exacerbation due to CAP 3. Chronic hypoxic respiratory failure 4. HTN 5. HLD Discharge Diagnoses with Status of Each Condition: 1. Community acquired pneumonia - improved 2. COPD exacerbation due to CAP - resolved 3. Chronic hypoxic respiratory failur - at baseline 4. HTN - stable 5. HLD - stable - HPI History of Present Illness: Presented to the ER with 1 week of URI symptoms, saw PCP and started z-pack. She did not imprpved, returned to clinic and x-ray revealed bilateral pneumonia. - HOSPITAL COURSE Hospital Course: 1. Community acquired pneumonia CAP affecting BLL. Given steroids, nebulizers and ceftriaxone+levaquin 05/01-05/03. Changed to PO levaquin on 05/04. Improving. Will complete levaquin PO x7d. Continue home inhalers. 2. COPD exacerbation due to CAP Treat same as above + q6hr duonebs. She is improving. Resume home inhalers and steroids x3days. 3. Chronic hypoxic respiratory failure On 4L NC at home, stable during admission. 4. HTN Continue home dose lisinopril 5. HLD Continue home dose statin and fish oil Lives in a RV with and dog, DIL present to help get patient settled at home. [facility] provided resources for inhome help/housing. - ALLERGIES Allergies/Adverse Reactions: Allergies Allergy/AdvReac Type Severity Reaction Status Date / Time oxycodone AdvReac Severe Nausea Verified 05/01/17 21:08 - MEDICATIONS Home Medications: Ambulatory Orders Medication Instructions Recorded Confirmed Lisinopril 10 mg PO DAILY 12/09/15 05/01/17 Mometasone/Formoterol [Dulera 200 2 puffs INH BID 12/09/15 05/01/17 Mcg/5 Mcg Inhaler] Pantoprazole [Protonix] 40 mg PO QDAC 12/09/15 05/01/17 Simvastatin 20 mg PO QPM 12/09/15 05/01/17 Albuterol Sulfate [Proair Hfa 2 puffs INH Q4H PRN 05/01/17 05/01/17 Inhaler] Viola-3/Dha/Epa/Fish Oil [Fish Oil 2 each PO DAILY 05/01/17 05/01/17 1,000 mg Softgel] Tiotropium [place] [Spiriva] 1 puffs INH DAILY 05/01/17 05/01/17 Albuterol 2.5 mg INH RTQ4H PRN neb 05/04/17 Benzonatate [Tessalon Perle] 100 mg PO TID PRN #30 capsule 05/04/17 Ibuprofen [Motrin] 600 mg PO Q6HR tablet 05/04/17 LORazepam [Ativan] 0.25 mg PO Q6H PRN #5 tablet 05/04/17 Nystatin 100,000 unit PO ACHS #230 ml 05/04/17 Polyethylene Glycol 3350 [Miralax] 17 gm PO DAILY packet 05/04/17 levoFLOXacin [Levaquin] 750 mg PO DAILY 3 Days #3 tablet 05/04/17 predniSONE [Deltasone] 20 mg PO DAILYWM 2 Days #2 tablet 05/04/17 - PHYSICAL EXAM AT DISCHARGE General Appearance: positive: No acute distress, Alert Eyes Bilateral: positive: PERRL Neck: positive: No JVD Respiratory: positive: Chest non-tender, No respiratory distress, Breath sounds nml (diminsihed but clear, faint wheezes/resolved after neb) Cardiovascular: positive: Regular rate & rhythm Peripheral Pulses: positive: 2+ Abdomen: positive: Non-tender, Nml bowel sounds, No distention Back: positive: Nml inspection Skin: positive: Color nml, No rash, Warm, Dry Extremities: positive: Non-tender, Full ROM, Nml appearance Neurologic/Psychiatric: positive: Oriented x3, Motor nml, Sensation nml, Mood/ affect nml - LABS Result Diagrams: 05/04/17 06:46 05/04/17 06:46 - FOLLOW UP Follow Up: Yang Tyler next week - TIME SPENT Time Spent in Discharge (Minutes): 35
== END 2017-05-04 14:55 | disposition home or self-care (01) | DRG 194 ==
LOC: ED 20:30 → MS3 23:01
PROVIDERS: ADMIT Hospitalist; ATTEND Nurse Practitioner Acute Care
DX: J18.9 Pneumonia, unspecified organism (principal); J44.0 Chronic obstructive pulmonary disease with (acute) lower respiratory infection; J96.11 Chronic respiratory failure with hypoxia; J43.9 Emphysema, unspecified; I10 Essential (primary) hypertension; E78.5 Hyperlipidemia, unspecified; E78.00 Pure hypercholesterolemia, unspecified; Z99.81 Dependence on supplemental oxygen
CPT/HCPCS: 36415; 71275; 80053; 83605; 83690; 83735; 83880; 84100; 84443; 84484; 85025; 87040; 93005; 93306; 94640; 96365; 96375; 99284

== ENCOUNTER 2017-07-02 11:39 | Outpatient (CLI) | payer MEDICARE, OTHER | END 2017-07-02 11:40 | disposition home or self-care (01) | LOC: LAB.R 11:39 | PROVIDERS: ATTEND Nurse Practitioner Primary Care | DX: N30.00 Acute cystitis without hematuria (principal) | CPT/HCPCS: 87077; 87086 ==

== ENCOUNTER 2017-08-08 08:00 | Outpatient (CLI) | payer MEDICARE, OTHER ==
[2017-08-08 12:43] LABS: BASOPHILS % (AUTO) 0.3 %; EOSINOPHILS # (AUTO) 0.2 10^3/uL (0.0-0.7); EOSINOPHILS % (AUTO) 3.8 %; HGB - HEMOGLOBIN 10.3 g/dL (12.0-16.0); LYMPHOCYTES # (AUTO) 1.8 10^3/uL (1.5-3.5); LYMPHOCYTES % (AUTO) 33.4 %; MEAN CORPUSCULAR HEMOGLOBIN 27.1 pg (27.0-31.0); MEAN CORPUSCULAR HGB CONC 32.1 g/dL (32.0-36.0); MEAN CORPUSCULAR VOLUME 84.4 fL (81.0-99.0); MEAN PLATELET VOLUME 7.8 fL (7.9-10.8); MONOCYTES # (AUTO) 0.6 10^3/uL (0.0-1.0); MONOCYTES % (AUTO) 11.6 %; NEUTROPHILS # (AUTO) 2.7 10^3/uL (1.5-6.6); NEUTROPHILS % (AUTO) 50.9 %; PLT - PLATELET COUNT 294 10^3/uL (130-450); RED CELL DISTRIBUTION WIDTH 15.1 % (12.0-15.0); WHITE BLOOD COUNT 5.4 x10^3/uL (4.8-10.8)
[2017-08-08 13:01] LABS: ALBUMIN 3.8 g/dL (3.2-5.5); ALBUMIN/GLOBULIN RATIO 1.2 (1.0-2.2); ALKALINE PHOSPHATASE 41 IU/L (42-121); ALT ALANINE AMINOTRANSFERASE 18 IU/L (10-60); AST ASPARTATE AMINOTRANSFERASE 22 IU/L (10-42); BILIRUBIN,TOTAL 0.7 mg/dL (0.2-1.0); BUN - BLOOD UREA NITROGEN 17 mg/dL (6-20); CALCIUM 9.1 mg/dL (8.5-10.3); CARBON DIOXIDE - CO2 30 mmol/L (21-32); CHLORIDE 104 mmol/L (101-111); CHOL/HDL RATIO 2.6 (<4.4); CHOLESTEROL 167 mg/dL; CREATININE 0.8 mg/dL (0.4-1.0); GFR - MDRD 70 (>89); GLUCOSE 88 mg/dL (70-100); HDL CHOLESTEROL 64 mg/dL; LDL CHOLESTEROL,CALCULATED 86 mg/dL; LDL/HDL RATIO 1.3 (<4.4); SODIUM 141 mmol/L (135-145); TOTAL PROTEIN 6.9 g/dL (6.7-8.2); VLDL CHOLESTEROL 17 mg/dL
== END 2017-08-08 08:01 | disposition home or self-care (01) ==
LOC: LAB.R 08:00
PROVIDERS: ATTEND Internal Medicine
DX: I10 Essential (primary) hypertension (principal); E78.5 Hyperlipidemia, unspecified; J44.9 Chronic obstructive pulmonary disease, unspecified; Z79.899 Other long term (current) drug therapy
CPT/HCPCS: 80053; 80061; 83721; 84443; 85025

== ENCOUNTER 2017-10-02 08:00 | Outpatient (CLI) | payer MEDICARE, OTHER ==
[2017-10-02 16:13] LABS: BILIRUBIN,URINE NEGATIVE (NEGATIVE); GLUCOSE, URINE (UA) NEGATIVE (NEGATIVE); KETONES,URINE (UA) NEGATIVE (NEGATIVE); LEUKOCYTE ESTERASE, URINE TRACE (NEGATIVE); NITRITE,URINE NEGATIVE (NEGATIVE); OCCULT BLOOD,URINE TRACE-INTA (NEGATIVE); PROTEIN,URINE NEGATIVE (NEGATIVE); UROBILINOGEN,URINE 0.2 (NORMAL) E.U./dL (NORMAL)
[2017-10-02 16:30] LABS: BACTERIA,URINE Many /HPF (None Seen); CLARITY,URINE CLEAR (CLEAR); RBC,URINE 0-5 /HPF (0-5); SQUAMOUS EPITHELIAL CELL,UR NONE SEEN (<= Few); WBC CLUMPS,URINE PRESENT
== END 2017-10-02 08:01 | disposition home or self-care (01) ==
LOC: LAB.R 08:00
PROVIDERS: ATTEND Obstetrics & Gynecology
DX: R30.0 Dysuria (principal)
CPT/HCPCS: 81001; 87086; 87181

== ENCOUNTER 2017-10-09 15:30 | Outpatient (CLI) | payer MEDICARE, OTHER | END 2017-10-09 15:31 | disposition home or self-care (01) | LOC: LAB.R 15:30 | PROVIDERS: ATTEND Obstetrics & Gynecology | DX: R82.99 Other abnormal findings in urine (principal) | CPT/HCPCS: 87086 ==

== ENCOUNTER 2017-11-10 13:35 | Outpatient (CLI) | payer MEDICARE, OTHER ==
[2017-11-10 17:40] LABS: BASOPHILS % (AUTO) 0.5 %; EOSINOPHILS # (AUTO) 0.2 10^3/uL (0.0-0.7); HGB - HEMOGLOBIN 10.1 g/dL (12.0-16.0); LYMPHOCYTES # (AUTO) 1.7 10^3/uL (1.5-3.5); MEAN CORPUSCULAR HEMOGLOBIN 26.8 pg (27.0-31.0); MEAN CORPUSCULAR HGB CONC 32.2 g/dL (32.0-36.0); MEAN CORPUSCULAR VOLUME 83.2 fL (81.0-99.0); MEAN PLATELET VOLUME 8.1 fL (7.9-10.8); MONOCYTES # (AUTO) 0.6 10^3/uL (0.0-1.0); MONOCYTES % (AUTO) 9.5 %; NEUTROPHILS # (AUTO) 3.4 10^3/uL (1.5-6.6); PLT - PLATELET COUNT 260 10^3/uL (130-450); RED BLOOD COUNT 3.78 10^6/uL (4.20-5.40); RED CELL DISTRIBUTION WIDTH 14.6 % (12.0-15.0); WHITE BLOOD COUNT 5.9 x10^3/uL (4.8-10.8)
== END 2017-11-10 13:36 | disposition home or self-care (01) ==
LOC: LAB.R 13:35
PROVIDERS: ATTEND Internal Medicine
DX: D64.9 Anemia, unspecified (principal)
CPT/HCPCS: 85025

== ENCOUNTER 2017-11-14 08:40 | Outpatient (CLI) | payer MEDICARE, OTHER ==
[2017-11-14 12:58] LABS: MEAN RETIC VALUE 116.7; RED BLOOD COUNT 3.65 10^6/uL (4.20-5.40)
[2017-11-14 13:39] LABS: FERRITIN 8.4 ng/mL (11.0-306.8)
== END 2017-11-14 08:41 | disposition home or self-care (01) ==
LOC: LAB.R 08:40
PROVIDERS: ATTEND Internal Medicine
DX: D64.9 Anemia, unspecified (principal)
CPT/HCPCS: 82607; 82728; 83010; 85044; 86880

== ENCOUNTER 2018-02-02 08:00 | Outpatient (CLI) | payer MEDICARE, OTHER | END 2018-02-02 23:59 | disposition home or self-care (01) | LOC: LAB.R 08:00 | PROVIDERS: ATTEND Internal Medicine | DX: D64.9 Anemia, unspecified (principal) | CPT/HCPCS: 82607 ==

== ENCOUNTER 2018-03-24 09:10 | Outpatient (CLI) | payer MEDICARE, OTHER ==
[2018-03-24 14:12] LABS: BASOPHILS % (AUTO) 0.5 %; EOSINOPHILS # (AUTO) 0.2 10^3/uL (0.0-0.7); EOSINOPHILS % (AUTO) 3.4 %; HGB - HEMOGLOBIN 12.6 g/dL (12.0-16.0); LYMPHOCYTES # (AUTO) 2.2 10^3/uL (1.5-3.5); LYMPHOCYTES % (AUTO) 36.9 %; MEAN CORPUSCULAR HEMOGLOBIN 29.6 pg (27.0-31.0); MEAN CORPUSCULAR HGB CONC 33.4 g/dL (32.0-36.0); MEAN CORPUSCULAR VOLUME 88.6 fL (81.0-99.0); MONOCYTES # (AUTO) 0.6 10^3/uL (0.0-1.0); MONOCYTES % (AUTO) 9.7 %; NEUTROPHILS # (AUTO) 2.9 10^3/uL (1.5-6.6); NEUTROPHILS % (AUTO) 49.5 %; PLT - PLATELET COUNT 223 10^3/uL (130-450); RED BLOOD COUNT 4.26 10^6/uL (4.20-5.40); RED CELL DISTRIBUTION WIDTH 15.4 % (12.0-15.0); WHITE BLOOD COUNT 5.9 x10^3/uL (4.8-10.8)
== END 2018-03-24 09:11 | disposition home or self-care (01) ==
LOC: LAB.R 09:10
PROVIDERS: ATTEND Internal Medicine
DX: D50.9 Iron deficiency anemia, unspecified (principal)
CPT/HCPCS: 82728; 85025

== ENCOUNTER 2018-06-10 08:58 | Outpatient (CLI) | payer MEDICARE, OTHER ==
[2018-06-10 09:31] LABS: ALBUMIN 4.3 g/dL (3.2-5.5); ALBUMIN/GLOBULIN RATIO 1.4 (1.0-2.2); BILIRUBIN,TOTAL 1.3 mg/dL (0.2-1.0); CREATININE 0.8 mg/dL (0.4-1.0); TOTAL PROTEIN 7.4 g/dL (6.7-8.2)
[2018-06-10 09:41] LABS: BASOPHILS % (AUTO) 0.3 %; EOSINOPHILS # (AUTO) 0.2 10^3/uL (0.0-0.7); EOSINOPHILS % (AUTO) 3.6 %; HGB - HEMOGLOBIN 12.5 g/dL (12.0-16.0); LYMPHOCYTES # (AUTO) 1.8 10^3/uL (1.5-3.5); LYMPHOCYTES % (AUTO) 29.1 %; MEAN CORPUSCULAR HEMOGLOBIN 29.9 pg (27.0-31.0); MEAN CORPUSCULAR HGB CONC 32.5 g/dL (32.0-36.0); MEAN PLATELET VOLUME 7.7 fL (7.9-10.8); MONOCYTES # (AUTO) 0.6 10^3/uL (0.0-1.0); MONOCYTES % (AUTO) 9.5 %; NEUTROPHILS # (AUTO) 3.5 10^3/uL (1.5-6.6); NEUTROPHILS % (AUTO) 57.5 %; PLT - PLATELET COUNT 242 10^3/uL (130-450); RED BLOOD COUNT 4.17 10^6/uL (4.20-5.40); RED CELL DISTRIBUTION WIDTH 13.7 % (12.0-15.0); WHITE BLOOD COUNT 6.1 x10^3/uL (4.8-10.8)
[2018-06-10 09:48] LABS: THYROID STIMULATING HORMONE 1.41 uIU/mL (0.34-5.60)
[2018-06-10 09:50] LABS: FREE T4 (FREE THYROXINE) 1.15 ng/dL (0.58-1.64)
== END 2018-06-10 08:59 | disposition home or self-care (01) ==
LOC: LAB 08:58
PROVIDERS: ATTEND Family Medicine
DX: M62.81 Muscle weakness (generalized) (principal); D50.9 Iron deficiency anemia, unspecified; E53.8 Deficiency of other specified B group vitamins; M19.90 Unspecified osteoarthritis, unspecified site; I10 Essential (primary) hypertension; G25.81 Restless legs syndrome; J44.9 Chronic obstructive pulmonary disease, unspecified
CPT/HCPCS: 36415; 80053; 84439; 84443; 84481; 85025

== ENCOUNTER 2018-06-23 22:02 | Outpatient (CLI) | payer MEDICARE, OTHER ==
--- NOTE | 2018-06-24 01:18 | Ultrasound Report ---
Reason: ABDOMINAL BLOATING, RLQ PAIN Procedure Date: 06/23/2018 Accession Number: [id number] / [id number] Procedure: US - Pelvic w/Transvaginal CPT Code: FULL RESULT: EXAM: PELVIC ULTRASOUND EXAM DATE: 06/23/2018 11:08 PM. CLINICAL HISTORY: ABDOMINAL BLOATING, RLQ PAIN. COMPARISON: None. TECHNIQUE: Realtime transabdominal pelvic scan performed to identify the uterus and adnexa and as an overview of other pelvic structures, followed by transvaginal scan to provide greater detail of the uterus and adnexa, with static image documentation. FINDINGS: Uterus: 5.3 x 4.0 x 2.1 cm, volume 23 cc. Anteverted position. Normal overall size and echotexture. Masses: None. Endometrium: 3 mm. Fluid within the endometrial canal, which outlines a 0.9 x 0.8 x 0.4 cm nodule in the fundal endometrium. This may represent a polyp or thrombus. Correlation with postmenopausal bleeding is recommended. Cervix: Unremarkable. Right Ovary: Not visualized, secondary to bowel gas. No adnexal mass appreciated. Left Ovary: 1.6 x 1.4 x 0.9 cm, volume 1 cc. Normal echotexture and blood flow. Free Fluid: None. Other: None. IMPRESSION: Polyp or thrombus in the fundal endometrium, with fluid in the endometrial canal. Correlation with postmenopausal bleeding is recommended. Nonvisualization of the right ovary, but no right adnexal mass is appreciated. RADIA
== END 2018-06-23 22:03 | disposition home or self-care (01) ==
LOC: DI 22:02
PROVIDERS: ATTEND Obstetrics & Gynecology
DX: R14.0 Abdominal distension (gaseous) (principal); R10.31 Right lower quadrant pain; D26.1 Other benign neoplasm of corpus uteri
CPT/HCPCS: 76830; 76856

== ENCOUNTER 2018-08-10 13:57 | Outpatient (CLI) | payer MEDICARE, OTHER ==
[2018-08-10 14:52] LABS: BASOPHILS % (AUTO) 0.6 %; EOSINOPHILS # (AUTO) 0.2 10^3/uL (0.0-0.7); EOSINOPHILS % (AUTO) 2.5 %; HGB - HEMOGLOBIN 12.1 g/dL (12.0-16.0); LYMPHOCYTES # (AUTO) 2.1 10^3/uL (1.5-3.5); MEAN CORPUSCULAR HEMOGLOBIN 30.4 pg (27.0-31.0); MEAN CORPUSCULAR HGB CONC 33.2 g/dL (32.0-36.0); MEAN CORPUSCULAR VOLUME 91.4 fL (81.0-99.0); MEAN PLATELET VOLUME 7.6 fL (7.9-10.8); MONOCYTES # (AUTO) 0.7 10^3/uL (0.0-1.0); MONOCYTES % (AUTO) 9.4 %; NEUTROPHILS # (AUTO) 4.7 10^3/uL (1.5-6.6); NEUTROPHILS % (AUTO) 60.5 %; PLT - PLATELET COUNT 241 10^3/uL (130-450); RED BLOOD COUNT 3.97 10^6/uL (4.20-5.40); RED CELL DISTRIBUTION WIDTH 12.8 % (12.0-15.0); WHITE BLOOD COUNT 7.8 x10^3/uL (4.8-10.8)
[2018-08-10 15:06] LABS: ALBUMIN 4.3 g/dL (3.2-5.5); ALBUMIN/GLOBULIN RATIO 1.5 (1.0-2.2); BILIRUBIN,TOTAL 0.7 mg/dL (0.2-1.0); CALCIUM 9.3 mg/dL (8.5-10.3); CREATININE 0.8 mg/dL (0.4-1.0); TOTAL PROTEIN 7.1 g/dL (6.7-8.2)
--- NOTE | 2018-08-10 16:20 | XRAY Report ---
Reason: THICKENED ENDOMETRIUM,UTERINE POLYP Procedure Date: 08/10/2018 Accession Number: [id number] / [id number] Procedure: XR - Chest 2 View X-Ray CPT Code: 33348 FULL RESULT: EXAM: CHEST RADIOGRAPHY EXAM DATE: 08/10/2018 03:24 PM. CLINICAL HISTORY: Preoperative x-ray prior to gynecologic surgery. COMPARISON: CHEST 2 VIEW 04/28/2017 11:51 AM. TECHNIQUE: 2 views. FINDINGS: Lungs/Pleura: Interval improvement in right lower lobe aeration compared to prior examination. There has been significant improvement in the previous airspace disease. There has been interval decrease in the small right pleural effusion. Evidence of COPD. No acute abnormality. Mediastinum: Heart and mediastinal contours are unremarkable. Other: None. IMPRESSION: 1. No acute cardiopulmonary abnormality. 2. Nearly complete resolution of previous right lower lobe airspace disease. There is a tiny residual right pleural effusion. RADIA
== END 2018-08-10 13:58 | disposition home or self-care (01) ==
LOC: DI 13:57
PROVIDERS: ATTEND Obstetrics & Gynecology
DX: Z01.818 Encounter for other preprocedural examination (principal); J44.9 Chronic obstructive pulmonary disease, unspecified; N85.00 Endometrial hyperplasia, unspecified; N84.0 Polyp of corpus uteri
CPT/HCPCS: 36415; 71046; 80053; 85025; 93005

== ENCOUNTER 2018-08-12 08:46 | Day surgery (SDC) | payer MEDICARE, OTHER ==
[2018-08-12] MEDS ORDERED: LACTATED RINGERS 1,000 ML IV ONE (09:00)
--- NOTE | 2018-08-12 09:45 | ANESTHESIA ---
Pre-Anesthesia VS, & Labs - Diagnosis Thickened endometrium, uterine polyp - Procedure hysterscopy, D&C Height 5 ft 6 in Weight (kg) 60.3 kg Body Mass Index 21.5 - NPO >8 hours - Is Patient ?: No Home Medications and Allergies Home Medications: Ambulatory Orders Atorvastatin [Lipitor] 10 mg PO DAILY 08/10/18 Cyanocobalamin (Vitamin B-12) [Vitamin B-12] 1,000 mcg PO DAILY 08/10/18 Ferrous Sulfate 2 tab PO DAILY 08/10/18 Fluticasone [Flonase] 1 sprays TEAGAN BID 08/10/18 Fluticasone/Vilanterol [Breo Ellipta 200-25 Mcg INH] 1 each IH DAILY 08/10/18 Lisinopril 10 mg PO DAILY 12/09/15 Pantoprazole [Protonix] 40 mg PO QDAC 12/09/15 Albuterol Sulfate [Proair Hfa Inhaler] 2 puffs INH Q4H PRN 05/01/17 Tiotropium [place] [Spiriva] 1 puffs INH DAILY 05/01/17 Atorvastatin [Lipitor] 10 mg PO DAILY 08/10/18 Cyanocobalamin (Vitamin B-12) [Vitamin B-12] 1,000 mcg PO DAILY 08/10/18 Ferrous Sulfate 2 tab PO DAILY 08/10/18 Fluticasone [Flonase] 1 sprays TEAGAN BID 08/10/18 Fluticasone/Vilanterol [Breo Ellipta 200-25 Mcg INH] 1 each IH DAILY 08/10/18 Allergies/Adverse Reactions: Allergies Allergy/AdvReac Type Severity Reaction Status Date / Time Opioids - Morphine Analogues AdvReac Nausea Verified 08/10/18 15:07 Anes History & Medical History - Anesthetic History Anesthesia Complications: reports: Slow wake-up, Opioid sensitivity - Medical History Cardiovascular: reports: None Pulmonary: reports: COPD, Other (3.5L O2 at home) Gastrointestinal: reports: GERD Urinary: reports: None Neuro: reports: None Musculoskeletal: reports: Osteoarthritis, Chronic back pain Endocrine/Autoimmune: reports: None Blood Disorders: reports: None Skin: reports: None Smoking Status: Former smoker (67 Pack year, quit 2010) Psychosocial: reports: No issues indicated - Surgical History General: Appendectomy, Other Eyes Ears Nose Throat (EENT): Tonsil/Adenoidectomy Gynecologic: Hysterectomy Exam General: Alert, Oriented x3, Cooperative, No acute distress Dental: Dentures full Upper, Dentures full Lower Mouth Openin Fingerbreadth Neck Mobility: Normal Mallampati classification: I Thyromental Distance: greater than 6 cm Respiratory: Decreased breath sounds (in all lung luna) Cardiovascular: Regular rate, Normal S1, Normal S2, No murmurs Mental/Cognitive Status: Alert/Oriented X3, Normal for patient Plan Anesthesia Type: General (Requests no narcotics) Consent for Procedure(s) Verified and Reviewed: Yes Code Status: Attempt Resuscitation ASA classification: 3-Severe systemic disease Is this case an emergency?: No
[2018-08-12] MEDS ORDERED: LIDOCAINE MPF 2%-EPI 1:200000 20 ML VIAL ONE (10:52)
[2018-08-12] MEDS ORDERED: ONDANSETRON 4 MG/2 ML VIAL IVP PRN (11:45)
[2018-08-12] MEDS ORDERED: ACETAMINOPHEN 160 MG/5 ML SUSP UDC PO PRN (11:45)
[2018-08-12] MEDS ORDERED: PROPOFOL 200 MG/20 ML VIAL IVP ONE (11:47)
[2018-08-12] MEDS ORDERED: ONDANSETRON 4 MG/2 ML VIAL IVP ONE (11:47)
--- NOTE | 2018-08-12 11:52 | OPERATIVE REPORT ---
Operative Report - General Procedure Date: 08/12/18 Planned Procedure: Hysteroscopy D&C with possible polypectomy Pre-Op Diagnosis: Endometrial thickening/endometrial mass Procedure Performed: Hysteroscopy, polypectomy and D&C Post Op Diagnosis: Same - Procedure Note Primary Surgeon: Colette Bryant MD Anesthesia Provider: Murray Guzman MD Anesthesia Technique: General LMA Pathology: uterine contents IV Fluids (mL): 250 (50 cc IV with 190 cc NS in fluid deficint) Estimated Blood Loss (mL): 5 Urine Output (mL): 0 (voiud prior to procedure) Indications: postmenopausal female with endometrial thickening/polyp Findings: Pale endoetrium with thickened tissue at right cornual near tubal ostia. Bilateral tubal ostia identifiec. Uterine sounds to 7.5 cm Complications: none
[2018-08-12] MEDS ORDERED: MIDAZOLAM 2 MG/2 ML VIAL ONE (12:08)
[2018-08-12] MEDS ORDERED: KETOROLAC 15 MG/ML VIAL ONE (12:14)
[2018-08-12] MEDS ORDERED: ACETAMINOPHEN 325 MG TABLET PO ONE (12:50)
[2018-08-12 13:01] VITALS: BP 155/69
== END 2018-08-12 08:47 | disposition home or self-care (01) ==
LOC: SDS 08:46
PROVIDERS: ATTEND Obstetrics & Gynecology
PROC: 0UDB8ZZ Extraction of Endometrium, Via Natural or Artificial Opening Endoscopic (ICD-10-PCS; 2018-08-12)
PROC: 0UB98ZZ Excision of Uterus, Via Natural or Artificial Opening Endoscopic (ICD-10-PCS; principal; 2018-08-12 10:00)
DX: N84.0 Polyp of corpus uteri (principal); N81.2 Incomplete uterovaginal prolapse; J44.9 Chronic obstructive pulmonary disease, unspecified; I10 Essential (primary) hypertension; Z78.0 Asymptomatic menopausal state; Z99.81 Dependence on supplemental oxygen; Z87.891 Personal history of nicotine dependence; Z79.899 Other long term (current) drug therapy; Z79.51 Long term (current) use of inhaled steroids
CPT/HCPCS: 58558; A9270; J7120

== ENCOUNTER 2018-10-26 10:41 | Day surgery (SDC) | payer MEDICARE, OTHER ==
[~2018-10-26 10:41] MED LIST: LIDO GARGLE 30 ML BOTTLE ONE
[2018-10-26] MEDS ORDERED: LACTATED RINGERS 1,000 ML IV ONE (11:09)
--- NOTE | 2018-10-26 12:18 | ANESTHESIA ---
Pre-Anesthesia VS, & Labs - Diagnosis GERD, hx colon polyps, dysphagia - Procedure EGD, colonscopy Vital Signs: Temp Pulse Resp BP Pulse Ox 36.6 C 78 20 147/67 H 96 10/26/18 10:50 10/26/18 10:50 10/26/18 10:50 10/26/18 10:50 10/26/18 10:50 Height 5 ft 6 in Weight (kg) 58.4 kg Body Mass Index 21.5 - NPO >8 hours - Is Patient ?: Not Applicable - Lab Results Lab results reviewed: Yes Home Medications and Allergies Lisinopril 10 mg PO DAILY 12/09/15 Pantoprazole [Protonix] 40 mg PO QDAC 12/09/15 Albuterol Sulfate [Proair Hfa Inhaler] 2 puffs INH Q4H PRN 05/01/17 Tiotropium [place] [Spiriva] 1 puffs INH DAILY 05/01/17 Atorvastatin [Lipitor] 10 mg PO QPM 08/10/18 Cyanocobalamin (Vitamin B-12) [Vitamin B-12] 1,000 mcg PO DAILY 08/10/18 Ferrous Sulfate 1 tab PO BID 08/10/18 Fluticasone [Flonase] 1 sprays TEAGAN BID 08/10/18 Fluticasone/Vilanterol [Breo Ellipta 200-25 Mcg INH] 1 each IH DAILY 08/10/18 Allergies/Adverse Reactions: Allergies Allergy/AdvReac Type Severity Reaction Status Date / Time Opioids - Morphine Analogues AdvReac Nausea Verified 08/10/18 15:07 Anes History & Medical History - Anesthetic History Anesthesia Complications: reports: No previous complications Family history of Anesthesia Complications: Denies Family history of Malignant Hyperthermia: Denies - Medical History Cardiovascular: reports: Hypertension, High cholesterol Pulmonary: reports: COPD, Emphysema, Other Gastrointestinal: reports: GERD, Colon polyps Urinary: reports: None Neuro: reports: None Musculoskeletal: reports: Osteoarthritis, Chronic back pain, Other Endocrine/Autoimmune: reports: None Blood Disorders: reports: None Skin: reports: None Smoking Status: Former smoker (67 Pack year, quit 2010) Psychosocial: reports: No issues indicated - Surgical History General: Appendectomy, Colonoscopy Eyes Ears Nose Throat (EENT): Cataracts, Tonsil/Adenoidectomy Gynecologic: Dilation and currettage, Tubal ligation, Other Exam General: Alert, Oriented x3 Dental: Dentures full Upper, Dentures full Lower Mouth Opening: Greater than 4 Fingerbreadths Neck Mobility: Limited Mallampati classification: I Thyromental Distance: 4-6 cm Respiratory: Decreased breath sounds, Accessory muscle use Cardiovascular: Regular rate Mental/Cognitive Status: Alert/Oriented X3 Cognitive Status: Within normal limits Plan Anesthesia Type: MAC Consent for Procedure(s) Verified and Reviewed: Yes Code Status: Attempt Resuscitation ASA classification: 3-Severe systemic disease Is this case an emergency?: No
[2018-10-26] MEDS ORDERED: LIDO GARGLE 30 ML BOTTLE PO ONE (13:16)
[2018-10-26 14:20] VITALS: BP 159/63
== END 2018-10-26 10:42 | disposition home or self-care (01) ==
LOC: SDS 10:41
PROVIDERS: ATTEND Internal Medicine Gastroenterology
PROC: 0DB78ZX Excision of Stomach, Pylorus, Via Natural or Artificial Opening Endoscopic, Diagnostic (ICD-10-PCS; 2018-10-26)
PROC: 0DBP8ZZ Excision of Rectum, Via Natural or Artificial Opening Endoscopic (ICD-10-PCS; principal; 2018-10-26 12:00)
PROC: 0DB98ZX Excision of Duodenum, Via Natural or Artificial Opening Endoscopic, Diagnostic (ICD-10-PCS; 2018-10-26 12:00)
DX: D50.9 Iron deficiency anemia, unspecified (principal); K62.1 Rectal polyp; K57.30 Diverticulosis of large intestine without perforation or abscess without bleeding; K21.9 Gastro-esophageal reflux disease without esophagitis; K31.9 Disease of stomach and duodenum, unspecified; J44.9 Chronic obstructive pulmonary disease, unspecified; I10 Essential (primary) hypertension; Z87.891 Personal history of nicotine dependence; Z99.81 Dependence on supplemental oxygen; Z80.0 Family history of malignant neoplasm of digestive organs
CPT/HCPCS: 43239; 45380; A9270; J7120

== ENCOUNTER 2018-11-09 16:17 | Outpatient (CLI) | payer MEDICARE, OTHER ==
[2018-11-09 22:12] LABS: CANDIDA GROUP DNA NEGATIVE (NEGATIVE); CANDIDA KRUSEI DNA NEGATIVE (NEGATIVE); TRICHOMONAS VAGINALIS DNA NEGATIVE (NEGATIVE)
== END 2018-11-09 23:59 | disposition home or self-care (01) ==
LOC: LAB.R 16:17
PROVIDERS: ATTEND Obstetrics & Gynecology
DX: N95.2 Postmenopausal atrophic vaginitis (principal)
CPT/HCPCS: 87210; 87661; 87801

== ENCOUNTER 2018-11-27 04:36 | Outpatient (CLI) | payer MEDICARE, OTHER | END 2018-11-27 04:37 | disposition critical access hospital (66) | LOC: EMS 04:36 | PROVIDERS: ATTEND Surgery | DX: R06.00 Dyspnea, unspecified (principal); R07.1 Chest pain on breathing | CPT/HCPCS: A0425; A0429 ==

== ENCOUNTER 2018-11-27 04:42 | Emergency (ER) | payer MEDICARE, OTHER ==
[2018-11-27] MEDS ORDERED: IPRATROPIUM/ALBUTEROL 3 ML NEB INH STA (04:52)
[2018-11-27 05:26] LABS: BASOPHILS % (AUTO) 0.3 %; EOSINOPHILS # (AUTO) 0.4 10^3/uL (0.0-0.7); EOSINOPHILS % (AUTO) 3.7 %; HGB - HEMOGLOBIN 11.7 g/dL (12.0-16.0); LYMPHOCYTES # (AUTO) 1.7 10^3/uL (1.5-3.5); LYMPHOCYTES % (AUTO) 15.1 %; MEAN CORPUSCULAR HEMOGLOBIN 30.2 pg (27.0-31.0); MEAN CORPUSCULAR HGB CONC 31.6 g/dL (32.0-36.0); MEAN CORPUSCULAR VOLUME 95.6 fL (81.0-99.0); MEAN PLATELET VOLUME 9.3 fL (7.9-10.8); MONOCYTES # (AUTO) 1.2 10^3/uL (0.0-1.0); MONOCYTES % (AUTO) 11.2 %; NEUTROPHILS # (AUTO) 7.6 10^3/uL (1.5-6.6); NEUTROPHILS % (AUTO) 69.2 %; PLT - PLATELET COUNT 206 10^3/uL (130-450); RED BLOOD COUNT 3.87 10^6/uL (4.20-5.40); RED CELL DISTRIBUTION WIDTH 12.8 % (12.0-15.0); WHITE BLOOD COUNT 10.9 x10^3/uL (4.8-10.8)
--- NOTE | 2018-11-27 05:27 | XRAY Report ---
Reason: cough Procedure Date: 11/27/2018 Accession Number: [id number] / [id number] Procedure: XR - Chest 2 View X-Ray CPT Code: 04121 FULL RESULT: EXAM: CHEST RADIOGRAPHY EXAM DATE: 11/27/2018 05:11 AM. CLINICAL HISTORY: Cough. COMPARISON: CHEST 2 VIEW 08/10/2018 3:17 PM. TECHNIQUE: 2 views. FINDINGS: Lungs/Pleura: Mild basilar opacities, similar on the right and slightly increased in left midlung compared to prior radiograph. Mild opacity at right apex. Small right pleural effusion or pleural-parenchymal disease. No pneumothorax. Mediastinum: Heart and mediastinal contours are unremarkable. Other: Stable osseous structures. IMPRESSION: 1. Bibasilar opacities and mild right apical opacity, possibly atelectasis, scarring and/or infiltrates. There is new or increased subtle small opacity in left mid lung with otherwise stable appearance of lungs compared to prior radiograph dated 08/10/2018. 2. Small right pleural effusion or pleural-parenchymal disease. 1. Normal cardiac silhouette size. RADIA
[2018-11-27 05:36] LABS: ALBUMIN 4.1 g/dL (3.2-5.5); ALBUMIN/GLOBULIN RATIO 1.3 (1.0-2.2); BILIRUBIN,TOTAL 1.7 mg/dL (0.2-1.0); CALCIUM 8.8 mg/dL (8.5-10.3); CREATININE 0.8 mg/dL (0.4-1.0); TOTAL PROTEIN 7.2 g/dL (6.7-8.2)
[2018-11-27] MEDS ORDERED: predniSONE 20 MG TABLET PO STA (06:01)
[2018-11-27] MEDS ORDERED: levoFLOXacin 250 MG TABLET PO STA (06:01)
--- NOTE | 2018-11-27 06:03 | ED Physician Documentation ---
History of Present Illness - Stated complaint Stated Complaint: SOA - Chief complaint Chief Complaint: Resp - Additonal information Additional information: This is a 78-year-old female with a history of COPD on 3 L of oxygen nasal cannula at baseline, who presents with increased sputum production, some left- sided chest discomfort, and increased work of breathing for several days. Patient states that she has had several pneumonias in the past, and that her current symptoms feel identical to her past pneumonias. She reports a temperature of 101F at home.. She denies hemoptysis, unilateral leg swelling, or history of blood clots. She has not had to increase her home oxygen, but states that she is having some increased shortness of breath when she is doing her physical therapy. She has some mild chest discomfort on the left lateral side which is somewhat intermittent. 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 WOMAN: None : None HEENT: Chronic vision loss Psych: None Musculoskeletal: Osteoarthritis, Chronic back pain, Other Derm: None - Past Surgical History Past Surgical History: Yes General: Appendectomy, Colonoscopy /STUNT WOMAN: Dilation and currettage, Tubal ligation, Other HEENT: Cataracts, Tonsil/Adenoidectomy - Present Medications Home Medications: Ambulatory Orders Medication Instructions Recorded Confirmed Lisinopril 10 mg PO DAILY 12/09/15 10/26/18 Pantoprazole [Protonix] 40 mg PO QDAC 12/09/15 10/26/18 Albuterol Sulfate [Proair Hfa 2 puffs INH Q4H PRN 05/01/17 10/26/18 Inhaler] Tiotropium [place] [Spiriva] 1 puffs INH DAILY 05/01/17 10/16/18 Ibuprofen [Motrin] 600 mg PO Q6HR tablet 05/04/17 10/26/18 Atorvastatin [Lipitor] 10 mg PO QPM 08/10/18 10/26/18 Cyanocobalamin (Vitamin B-12) 1,000 mcg PO DAILY 08/10/18 10/26/18 [Vitamin B-12] Ferrous Sulfate 1 tab PO BID 08/10/18 10/26/18 Fluticasone [Flonase] 1 sprays TEAGAN BID 08/10/18 10/26/18 Fluticasone/Vilanterol [Breo 1 each IH DAILY 08/10/18 10/26/18 Ellipta 200-25 Mcg INH] Levofloxacin [Levaquin] 750 mg PO DAILY #4 tablet 11/27/18 predniSONE [Prednisone] 40 mg PO DAILY #8 tablet 11/27/18 - Allergies Allergies/Adverse Reactions: Allergies Allergy/AdvReac Type Severity Reaction Status Date / Time Opioids - Morphine Analogues AdvReac Nausea Verified 11/27/18 05:00 - Social History Does the pt smoke?: No Smoking Status: Never smoker Does the pt drink ETOH?: No Does the pt have substance abuse?: No - Immunizations Immunizations are current?: Yes - POLST Patient has POLST: No PD ED PE NORMAL - Vitals Vital signs reviewed: Yes - General General: Alert and oriented X 3, No acute distress - HEENT HEENT: PERRL - Neck Neck: Supple, no meningeal sign - Cardiac Cardiac: RRR - Respiratory Respiratory: Other (Basilar crackles more prominent on the left. No wheeze.) - Abdomen Abdomen: Normal bowel sounds, Soft, Non tender, Non distended - Derm Derm: Warm and dry - Extremities Extremities: No deformity - Neuro Neuro: Alert and oriented X 3 - Psych Psych: Normal mood, Normal affect Results - Vitals Vitals: Vital Signs - 24 hr 11/27/18 07:00 Heart Rate 90 Respiratory 19 Rate Blood Pressure 112/58 L O2 Saturation 96 Oxygen O2 Source [Without Activity] Nasal cannula O2 Source Room air Oxygen Flow Rate 3 - EKG (time done) 4:56 Other comments: Other comments (Rate 84, rhythm sinus, there is no ST segment elevation, there is T wave flattening in the lateral leads, and slight ST depression in the lateral leads, unchanged from prior. [place] is normal) - Labs Labs: Laboratory Tests 11/27/18 11/27/18 11/27/18 05:17 05:17 05:19 WBC 10.9 H RBC 3.87 L Hgb 11.7 L Hct 37.0 MCV 95.6 MCH 30.2 MCHC 31.6 L RDW 12.8 Plt Count 206 MPV 9.3 Neut # (Auto) 7.6 H Lymph # (Auto) 1.7 [place] # (Auto) 1.2 H Eos # (Auto) 0.4 Baso # (Auto) 0.0 Absolute Nucleated RBC 0.00 Nucleated RBC % 0.0 Sodium 141 Potassium 3.7 Chloride 100 L Carbon Dioxide 31 Anion Gap 10.0 BUN 15 Creatinine 0.8 Estimated GFR (MDRD) 70 L Glucose 110 H Calcium 8.8 Total Bilirubin 1.7 H AST 17 ALT 16 Alkaline Phosphatase 48 Troponin I High Sens 2.9 Total Protein 7.2 Albumin 4.1 Globulin 3.1 Albumin/Globulin Ratio 1.3 Lipase 21 L - Rads (name of study) CXR 2 view Radiology: Other (Bibasilar opacities and New opacity in the left midlung. Stable right pleural effusion, normal cardiac silhouette size.) PD MEDICAL DECISION MAKING - ED course Complexity details: considered differential (Pneumonia, pneumothorax, pleural effusion, aspiration, ACS, pulmonary embolism.) ED course: Patient presents with fever, cough, and left-sided chest discomfort. This is been ongoing for several days. Her chest x-ray shows a new opacity in the left midlung which is in the region where she is having her discomfort. Given her combination of symptoms as well as the x-ray finding, I think is most likely she has a pneumonia. Patient herself states this feels very similar to past pneumonias that she has had. She has no signs of DVT, her oxygen saturation is at its baseline, and she has no tachycardia, making pulmonary embolism unlikely, particularly given that we have a better explanation for her symptoms. Her EKG shows no significant changes from prior, she does have some slight lateral ST depressions and T wave flattening. Her troponin is negative, given her symptoms and on going for several days, a single troponin is sufficient. A combination of fever as well as her lab results are much more consistent with pneumonia than ACS. Her labs are otherwise notable for a baseline anemia as well as mild leukocytosis of 10.9. After discussion with the patient she states that her past pneumonias have required more potent antibiotics, and we will start her on levofloxacin as well as a steroid burst for her COPD. I did discuss the black box warning with fluoroquinolones, and she understands the risks including tendon rupture and potential increase in dissection. If patient has increasing pain, shortness of breath, or her symptoms are not improving she will return to the emergency department. She will follow-up with her primary care provider. She feels comfortable going home at this time and I think is appropriate for outpatient therapy given that her vital signs and oxygen level are at baseline. Patient's questions were answered and she was discharged home Departure - Departure Disposition: 01 Home, Self Care Clinical Impression: Pneumonia Qualifiers: Pneumonia type: due to unspecified organism Laterality: left Lung location: unspecified part of lung Qualified Code(s): J18.9 - Pneumonia, unspecified organism Condition: Stable Instructions: Pneumonia Dc Follow-Up: Lior Jacobo MD [Primary Care Provider] - Within 3 Days Prescriptions: Levofloxacin [Levaquin] 750 mg PO DAILY #4 tablet predniSONE [Prednisone] 40 mg PO DAILY #8 tablet Comments: You were seen today for some shortness of breath and chest discomfort, you appear to have a pneumonia on your chest x-ray. Please take the antibiotic as prescribed, and also take the steroid which is given for a COPD exacerbation. If you are developing worsening shortness of breath, chest pain, or any other concerning symptoms please return to the emergency department. Otherwise please follow-up as soon as possible with your primary care provider for a recheck. You should also follow up with your PCP on your mild anemia as well as mildly elevated bilirubin (1.7) Discharge Date/Time: 11/27/18 07:55
[2018-11-27 07:26] VITALS: BP 112/58
== END 2018-11-27 07:55 | disposition home or self-care (01) ==
LOC: ED 04:42
DX: J18.9 Pneumonia, unspecified organism (principal); J44.9 Chronic obstructive pulmonary disease, unspecified; I10 Essential (primary) hypertension; Z99.81 Dependence on supplemental oxygen
CPT/HCPCS: 36415; 71046; 80053; 83690; 84484; 85025; 93005; 94640; 99283; 99284; A9270; J7512

== ENCOUNTER 2019-01-05 11:22 | Outpatient (CLI) | payer MEDICARE, OTHER ==
--- NOTE | 2019-01-06 09:36 | XRAY Report ---
Reason: COUGH,COPD Procedure Date: 01/05/2019 Accession Number: [id number] / [id number] Procedure: XR - Chest 2 View X-Ray CPT Code: 27669 Final Report FULL RESULT: EXAM: CHEST RADIOGRAPHY EXAM DATE: 01/05/2019 11:36 AM. CLINICAL HISTORY: COUGH,COPD. COMPARISON: CHEST 2 VIEW 11/27/2018 4:55 AM. TECHNIQUE: 2 views. FINDINGS: Lungs/Pleura: Largely unchanged right greater than left linear basilar opacities. Right lower lung resection staple line is seen with adjacent scarring. [place] upper lungs compatible with COPD again noted. Right apical scarring also seen. No new focal consolidation. Unchanged small right pleural effusion versus pleural thickening. No pneumothorax. Mediastinum: Stable heart size and mediastinum. Atheromatous plaque at the aortic arch. Other: None. IMPRESSION: 1. Unchanged right greater than left basilar pulmonary opacities. No new focal airspace consolidation. 2. Stable right base pleural effusion versus pleural thickening. 3. Stable heart size. RADIA
== END 2019-01-05 11:23 | disposition home or self-care (01) ==
LOC: DI 11:22
PROVIDERS: ATTEND Family Medicine
DX: R05 Cough (principal); J44.9 Chronic obstructive pulmonary disease, unspecified; Z99.81 Dependence on supplemental oxygen; R91.8 Other nonspecific abnormal finding of lung field
CPT/HCPCS: 71046

== ENCOUNTER 2019-02-28 10:36 | Outpatient (CLI) | payer MEDICARE, OTHER | END 2019-02-28 10:37 | disposition critical access hospital (66) | LOC: EMS 10:36 | PROVIDERS: ATTEND Surgery | DX: R06.02 Shortness of breath (principal); R50.9 Fever, unspecified | CPT/HCPCS: A0425; A0429 ==

== ENCOUNTER 2019-02-28 10:41 | Inpatient (IN) | payer MEDICARE, OTHER ==
--- NOTE | 2019-02-28 11:04 | ED Physician Documentation ---
PD HPI DYSPNEA - Stated complaint Stated Complaint: SOA - Chief complaint Chief Complaint: Resp - History obtained from History obtained from: Patient, Family - History of Present Illness Timing - onset: How many weeks ago Timing - duration: Weeks Timing - details: Gradual onset Pain level now: 0 Inciting event(s): URI Worsened by: Exertion, Coughing Associated symptoms: Cough. No: Fever, Chest pain / discomfort, Palpitations, Bilateral edema Similar symptoms before: Diagnosis Recently seen: Clinic - Additional information Additional information: This is a 79-year-old woman who presents with her daughter complaints that she is having a COPD exacerbation. She was seen by the nurse practitioner 5 or 6 days ago prescribed Levaquin and prednisone Dosepak which she is down to 20 mg daily. Then she started running a fever it was 101 this morning. She is coughing up very minimal phlegm she is taking Mucinex and using her nebulizer at home twice a day as well as Brio and Spiriva inhalers. She complains of some tightness across her chest just because she cannot breathe and she is having waves of pain in her lower back as well as a headache. Patient flew to [place] last month and was there for January and January she had a little bit of edema when she returned but that is resolved denies history of DVT. Denies history of NC. She is dizzy whenever she stands up but has not passed out. She lives with her who has dementia and he is her caregiver so she really has not been able to rest at home. Review of Systems Constitutional: reports: Fever Eyes: denies: Loss of vision Ears: denies: Ear pain Nose: denies: Rhinorrhea / runny nose, Congestion Throat: denies: Sore throat Cardiac: denies: Palpitations, Pedal edema Respiratory: reports: Dyspnea, Cough, Wheezing. denies: Hemoptysis GI: denies: Nausea, Vomiting : denies: Dysuria, Frequency Skin: denies: Rash Neurologic: reports: Generalized weakness. 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 : None HEENT: Chronic vision loss Psych: None Musculoskeletal: Osteoarthritis, Chronic back pain, Other Derm: None - Past Surgical History Past Surgical History: Yes General: Appendectomy, Colonoscopy /SUPERVISOR ASSEMBL[employer]ING: Dilation and currettage, Tubal ligation, Other HEENT: Cataracts, Tonsil/Adenoidectomy - Present Medications Home Medications: Ambulatory Orders Medication Instructions Recorded Confirmed Pantoprazole [Protonix] 40 mg PO QDAC 12/09/15 02/28/19 lisinopriL [Lisinopril] 10 mg PO DAILY 12/09/15 02/28/19 Albuterol Sulfate [Proair Hfa 2 puffs INH Q4H PRN 05/01/17 02/28/19 Inhaler] Tiotropium [place] [Spiriva] 1 puffs INH DAILY 05/01/17 02/28/19 Atorvastatin [Lipitor] 10 mg PO QPM 08/10/18 02/28/19 Cyanocobalamin (Vitamin B-12) 1,000 mcg PO DAILY 08/10/18 02/28/19 [Vitamin B-12] Ferrous Sulfate 1 tab PO BID 08/10/18 02/28/19 Fluticasone [Flonase] 1 sprays TEAGAN BID 08/10/18 02/28/19 Fluticasone/Vilanterol [Breo 1 each IH DAILY 08/10/18 02/28/19 Ellipta 200-25 Mcg INH] Albuterol 2.5 mg INH Q4H PRN 02/28/19 02/28/19 Ibuprofen [Advil] 200 - 400 mg PO Q6H PRN 02/28/19 02/28/19 - Allergies Allergies/Adverse Reactions: Allergies Allergy/AdvReac Type Severity Reaction Status Date / Time Opioids - Morphine Analogues AdvReac Nausea Verified 11/27/18 05:00 - Social History Does the pt smoke?: No Smoking Status: Never smoker Does the pt drink ETOH?: No Does the pt have substance abuse?: No - Immunizations Immunizations are current?: Yes - POLST Patient has POLST: No PD ED PE NORMAL - Vitals Vital signs reviewed: Yes - General General: Alert and oriented X 3, No acute distress, Well developed/nourished - HEENT HEENT: Atraumatic, PERRL, Other (Mucous membranes are dry.) - Neck Neck: Supple, no meningeal sign, No adenopathy, No JVD - Cardiac Cardiac: No murmur, Strong equal pulses, Other (Tachycardic) - Respiratory Respiratory: Other (Tachypneic but able to speak in sentences. Diminished breath sounds throughout there are some rhonchi heard across the anterior lung luna.) - Abdomen Abdomen: Normal bowel sounds, Soft, Non tender - Derm Derm: Normal color, Warm and dry, No rash - Extremities Extremities: No edema - Neuro Neuro: Alert and oriented X 3, noise abatement engineer 2-12 intact, No motor deficit, No sensory deficit, Normal speech - Psych Psych: Normal mood, Normal affect Results - Vitals Vitals: Vital Signs - 24 hr 02/28/19 02/28/19 02/28/19 10:43 12:19 12:33 Temperature 38.7 C H 37.4 C Heart Rate 120 H 106 H 110 H Respiratory 24 28 H 24 Rate Blood Pressure 149/70 H 91/73 O2 Saturation 93 93 Oxygen O2 Source [Without Activity] Nasal cannula O2 Source Nasal cannula Oxygen Flow Rate 6 - EKG (time done) 1110 Rate: Rate (enter#) (109) Rhythm: Sinus tachycardia Intervals: Normal [place]. No: Wide QRS Ischemia: Non specific changes Compare to prior EKG: Old EKG unavailable - Labs Labs: Laboratory Tests 02/28/19 02/28/19 02/28/19 11:04 11:04 11:19 WBC 12.9 H RBC 3.89 L Hgb 11.5 L Hct 37.6 MCV 96.7 MCH 29.6 MCHC 30.6 L RDW 13.2 Plt Count 259 MPV 9.4 Neut # (Auto) 9.5 H Lymph # (Auto) 1.9 [place] # (Auto) 1.1 H Eos # (Auto) 0.2 Baso # (Auto) 0.0 Absolute Nucleated RBC 0.00 Nucleated RBC % 0.0 Sodium 142 Potassium 3.6 Chloride 102 Carbon Dioxide 31 Anion Gap 9.0 BUN 23 H Creatinine 0.7 Estimated GFR (MDRD) 81 L Glucose 102 H Lactic Acid Calcium 8.5 Total Bilirubin 1.1 H AST 15 ALT 18 Alkaline Phosphatase 45 B-Natriuretic Peptide 19 Total Protein 6.7 Albumin 3.8 Globulin 2.9 Albumin/Globulin Ratio 1.3 Lipase 23 02/28/19 11:19 WBC RBC Hgb Hct MCV MCH MCHC RDW Plt Count MPV Neut # (Auto) Lymph # (Auto) [place] # (Auto) Eos # (Auto) Baso # (Auto) Absolute Nucleated RBC Nucleated RBC % Sodium Potassium Chloride Carbon Dioxide Anion Gap BUN Creatinine Estimated GFR (MDRD) Glucose Lactic Acid 0.7 Calcium Total Bilirubin AST ALT Alkaline Phosphatase B-Natriuretic Peptide Total Protein Albumin Globulin Albumin/Globulin Ratio Lipase - Rads (name of study) CXR Radiology: EMP read contemporaneously (RLL infiltrate that has worsened since Jan 2019) PD MEDICAL DECISION MAKING - ED course Complexity details: reviewed old records, reviewed results, re-evaluated patient, d/w patient, d/w family, d/w urban design consultant ED course: Patient does have a little elevation of her white blood cell count at 12.3. She is febrile and was given Tylenol. BMP is normal lactic is normal. Blood cultures were obtained. Her chest x-ray shows a worsening of the right lower lobe infiltrate that was present there even in January. There is been no intervening x-ray surveillance. She was given albuterol nebulizer which did not do a lot to increase her aeration. She was still satting 93% on 6 L of O2. She is ordered for Rocephin and Zithromax as well as 125 mg of Solu-Medrol IV. Admission was discussed with her she is in agreement and I spoke with the hospitalist is agreed except the patient for a full admit. Departure - Departure Disposition: [facility] DC/Xfer Clinical Impression: COPD exacerbation Pneumonia Qualifiers: Pneumonia type: due to unspecified organism Laterality: right Lung location: lower lobe of lung Qualified Code(s): J18.9 - Pneumonia, unspecified organism Condition: Good Discharge Date/Time: 02/28/19 13:36
[2019-02-28] MEDS ORDERED: ACETAMINOPHEN 325 MG TABLET PO STA (11:06)
[2019-02-28 11:09] LABS: BASOPHILS % (AUTO) 0.2 %; EOSINOPHILS # (AUTO) 0.2 10^3/uL (0.0-0.7); EOSINOPHILS % (AUTO) 1.2 %; HGB - HEMOGLOBIN 11.5 g/dL (12.0-16.0); LYMPHOCYTES # (AUTO) 1.9 10^3/uL (1.5-3.5); LYMPHOCYTES % (AUTO) 14.6 %; MEAN CORPUSCULAR HEMOGLOBIN 29.6 pg (27.0-31.0); MEAN CORPUSCULAR HGB CONC 30.6 g/dL (32.0-36.0); MEAN CORPUSCULAR VOLUME 96.7 fL (81.0-99.0); MEAN PLATELET VOLUME 9.4 fL (7.9-10.8); MONOCYTES # (AUTO) 1.1 10^3/uL (0.0-1.0); MONOCYTES % (AUTO) 8.7 %; NEUTROPHILS # (AUTO) 9.5 10^3/uL (1.5-6.6); NEUTROPHILS % (AUTO) 73.5 %; PLT - PLATELET COUNT 259 10^3/uL (130-450); RED BLOOD COUNT 3.89 10^6/uL (4.20-5.40); RED CELL DISTRIBUTION WIDTH 13.2 % (12.0-15.0); WHITE BLOOD COUNT 12.9 x10^3/uL (4.8-10.8)
[2019-02-28 11:25] LABS: ALBUMIN 3.8 g/dL (3.2-5.5); ALBUMIN/GLOBULIN RATIO 1.3 (1.0-2.2); BILIRUBIN,TOTAL 1.1 mg/dL (0.2-1.0); CALCIUM 8.5 mg/dL (8.5-10.3); CREATININE 0.7 mg/dL (0.4-1.0); TOTAL PROTEIN 6.7 g/dL (6.7-8.2)
[2019-02-28] MEDS ORDERED: ALBUTEROL NEB 2.5 MG/3 ML INH STA (11:59)
--- NOTE | 2019-02-28 12:01 | XRAY Report ---
Reason: cough/fever Procedure Date: 02/28/2019 Accession Number: [id number] / [id number] Procedure: XR - Chest 2 View X-Ray CPT Code: 64636 Final Report FULL RESULT: EXAM: CHEST RADIOGRAPHY EXAM DATE: 02/28/2019 11:33 AM. CLINICAL HISTORY: Cough/fever. COMPARISON: CHEST 2 VIEW 01/05/2019 11:28 AM CHEST 2 VIEW 11/27/2018 4:55 AM CHEST 2 VIEW 08/10/2018 3:17 PM. TECHNIQUE: 2 views. FINDINGS: Lungs/Pleura: There is new patchy opacity at the right lung base. Ground of right basilar linear opacities, postsurgical changes, and blunting of the right costophrenic sulcus appears similar to prior exams. Minimal linear opacity at the left lung base is similar to prior. Lungs are mildly hyperexpanded with flattening of diaphragm, as seen on prior exams. No pneumothorax. Mediastinum: Heart and mediastinal contours are unremarkable. There is mild atherosclerotic calcification of the aortic arch. Other: No acute osseous abnormality. IMPRESSION: 1. New patchy opacity at the right lung base is suspicious for pneumonia or aspiration. 2. Chronic linear atelectasis or scarring at the bilateral lung bases appears similar to prior exams. 3. Blunting of the right costophrenic sulcus consistent with a chronic small pleural effusion or scarring, similar to multiple prior exams. RADIA
[2019-02-28] MEDS ORDERED: cefTRIAXone 1 GM VIAL IVP STA (12:28)
[2019-02-28] MEDS ORDERED: AZITHROMYCIN INJ 500 MG in SODIUM CHLORIDE 0.9% 250 ML IV STA (12:28)
[2019-02-28] MEDS ORDERED: methylPREDNISolone SUCCINATE 125 MG/2 ML VIAL IVP STA (12:35)
[2019-02-28] MEDS ORDERED: LEVALBUTEROL 1.25 MG/3 ML NEB INH PRN (13:58)
[2019-02-28 14:12] LABS: BILIRUBIN,URINE NEGATIVE (NEGATIVE); GLUCOSE, URINE (UA) NEGATIVE (NEGATIVE); KETONES,URINE (UA) NEGATIVE (NEGATIVE); LEUKOCYTE ESTERASE, URINE NEGATIVE (NEGATIVE); NITRITE,URINE NEGATIVE (NEGATIVE); OCCULT BLOOD,URINE NEGATIVE (NEGATIVE); PH,URINE 5.5 PH (5.0-7.5); PROTEIN,URINE NEGATIVE (NEGATIVE); UROBILINOGEN,URINE 0.2 (NORMAL) E.U./dL (NORMAL)
[2019-02-28] MEDS ORDERED: IBUPROFEN 600 MG TABLET PO PRN (14:16)
[2019-02-28] MEDS: methylPREDNISolone SUCCINATE 40 MG/ML VIAL IVP SCH ×2 (14:18→21:31)
[2019-02-28] MEDS: SODIUM CHLORIDE FLUSH 0.9% 10 ML SYRINGE IVP SCH ×2 (14:18→17:43)
[2019-02-28 14:20] LABS: CLARITY,URINE CLEAR (CLEAR)
--- NOTE | 2019-02-28 14:23 | HISTORY & PHYSICAL EXAMINATION ---
Chief Complaint - Chief Complaint Chief Complaint: Shortness of breath, fever, chills, increased cough Respiratory Admission HPI - Admitted From Admitted from: ED - History Obtained From Records Reviewed: RN notes reviewed, Old records reviewed History obtained from: Patient, Family (sister, Rosalind) - History of Present Illness Severity at the worst: reports: Severe Context of Onset: reports: Exertion, Inspiration, Movement, Rest (difficulty sleeping) Timing: reports: Gradual onset (unresolved since January after flying to [place], progressively worse. Much worse in the past 1 week.), Constant Improved with: reports: Nothing Worsened by: reports: Exertion, Inspiration, Movement Associated symptoms: reports: Diaphoresis, Nausea, General weakness, Other (loss of appeitite) HPI Comment/Other: Paulette Gomez is a very pleasant 79 year old female with a past medical history of hypertension, hyperlipidemia, recurrent pneumonia, iron deficient anemia, chronic sinusitis, history of longstanding tobacco dependence in remission, emphysema COPD, on home oxygen for the past 8 years, pulmonary hypertension, chronic back pain, osteoarthritis, and GERD. The patient states that in mid-January her family took a trip to [place] and while on the flight, she contracted an upper respiratory infection, was treated at a [facility] clinic with oral steroids, and a course of antibiotics. Her symptoms continued, so she was seen at [facility] where she saw Janet Conn last week, and prescribed prednisone and a course of antibiotics. For the past week, the patient has had progressive shortness of breath, tightness across her chest, waves of pain in her lower back, headaches, orthopnea, fatigue, non-productive cough, fevers of at least 101 F orally reported by patient, chills, loss of appetite, dizziness upon standing, mouth soreness, and weight loss of at least 6 pounds in the past 30-days. 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 She will be admitted to inpatient for IV steroids, IV antibiotics, routine respiratory cares, nebulizers, and expectorants. 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 (Primary caregiver to Morgan, of 57 years.) - Social History Does the pt smoke?: No Smoking Status: Former smoker Does the pt drink ETOH?: No Does the pt have substance abuse?: No Additional Social History: [place] here to care for her ill sister who has since . 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 She admits to tobacco use from age [age] years old, denies alcohol use other than monthly occasional, and denies ilicit drug use. She wishes to remain a FULL code. - POLST Patient has POLST: No POLST Status: Full Code - Family History Family History: Mother: , Seizure Disorder, Father: , CAD, Renal Disease/Failure, Sister: Alive and Well, Brother: Alive and Well Meds/Allgy - Home Medications Home Medications: Ambulatory Orders Medication Instructions Recorded Confirmed Pantoprazole [Protonix] 40 mg PO QDAC 12/09/15 02/28/19 lisinopriL [Lisinopril] 10 mg PO DAILY 12/09/15 02/28/19 Albuterol Sulfate [Proair Hfa 2 puffs INH Q4H PRN 05/01/17 02/28/19 Inhaler] Tiotropium [place] [Spiriva] 1 puffs INH DAILY 05/01/17 02/28/19 Atorvastatin [Lipitor] 10 mg PO QPM 08/10/18 02/28/19 Cyanocobalamin (Vitamin B-12) 1,000 mcg PO DAILY 08/10/18 02/28/19 [Vitamin B-12] Ferrous Sulfate 1 tab PO BID 08/10/18 02/28/19 Fluticasone [Flonase] 1 sprays TEAGAN BID 08/10/18 02/28/19 Fluticasone/Vilanterol [Breo 1 each IH DAILY 08/10/18 02/28/19 Ellipta 200-25 Mcg INH] Albuterol 2.5 mg INH Q4H PRN 02/28/19 02/28/19 Ibuprofen [Advil] 200 - 400 mg PO Q6H PRN 02/28/19 02/28/19 - Allergies Allergies/Adverse Reactions: Allergies Allergy/AdvReac Type Severity Reaction Status Date / Time Opioids - Morphine Analogues AdvReac Nausea Verified 11/27/18 05:00 Review of Systems - Constitutional Constitutional: reports: Fatigue, Fever, Chills, Weakness, Poor appetite, Weight loss (at least 6 pounds in the last 30-days) - Eyes Eyes: reports: Vision loss - Ears, Nose & Throat Ears, Nose & Throat: reports: Nasal congestion, Postnasal drainage, Hoarseness - Cardiovascular Cariovascular: reports: Exertional dyspnea, Decr. exercise tolerance, Orthopnea - Respiratory Respiratory: reports: Cough, Wheezing, Orthopnea, SOB at rest, SOB with exertion - Gastrointestinal Gastrointestinal: reports: Abdominal distention, Nausea, Reflux/heartburn, Bloating, Poor appetite - Genitourinary Genitourinary: reports: Nocturia - Musculoskeletal Musculoskeletal: reports: Back pain, Stiffness - Integumentary Integumentary: reports: Dryness - Neurological Neurological: reports: General weakness, Headache, Dizziness, Pre-existing deficit - Psychiatric Psychiatric: reports: Anxiety - Hematologic/Lymphatic Hematologic/Lymphatic: reports: Recurrent infections - All Other Systems All Other Systems: reports: Reviewed and negative Prior Level of Functionality: Home oxygen use for the past 8 years. Independent at home, cares for her who has advanced Alzheimer's. Exam - Vital Signs Reviewed Vital Signs: Yes Vital Signs: Vital Signs x48h Temp Pulse Resp BP Pulse Ox 02/28/19 12:33 37.4 C 110 H 24 91/73 93 02/28/19 12:19 106 H 28 H 02/28/19 10:43 38.7 C H 120 H 24 149/70 H 93 - Physical Exam General Appearance: positive: Alert, Moderate distress Eyes Bilateral: positive: PERRL, No lid inflammation ENT: positive: Pharyngeal erythema, Dry mucous membranes Neck: positive: Thyroid nml, No JVD Respiratory: positive: Chest non-tender, Wheezes (slight inspiratory and expiratory wheeze), Rhonchi (anterior chest rhonchi), Other (scattered crackles, absent to low right lung base) Cardiovascular: positive: Regular rate & rhythm, Tachycardia, Systolic murmur, Decreased pulse(s) Peripheral Pulses: positive: 1+ Abdomen: positive: Non-tender, Hepatomegaly, Other (rounded, soft) Back: positive: Nml inspection Skin: positive: No rash, Warm, Dry, Diaphoresis (sweaty back side), Pallor Extremities: positive: Non-tender, Full ROM, No pedal edema Neurologic/Psychiatric: positive: Oriented x3, CN's nml (2-12), Motor nml, Sensation nml, Weakness Reflexes: Bicep (R): 3+, Bicep (L): 3+, Ankle (R): 4+, Ankle (L): 4+ Results - Lab Results Lab results reviewed: Yes Fish Bones: 02/28/19 11:04 02/28/19 11:04 Other Lab Results: Lab Results x24hrs 02/28/19 02/28/19 02/28/19 Range/Units 14:05 11:19 11:19 WBC (4.8-10.8) x10^3/uL RBC (4.20-5.40) 10^6/uL Hgb (12.0-16.0) g/dL Hct (37.0-47.0) % MCV (81.0-99.0) fL MCH (27.0-31.0) pg MCHC (32.0-36.0) g/dL RDW (12.0-15.0) % Plt Count (130-450) 10^3/uL MPV (7.9-10.8) fL Neut # (Auto) (1.5-6.6) 10^3/uL Lymph # (Auto) (1.5-3.5) 10^3/uL Coke # (Auto) (0.0-1.0) 10^3/uL Eos # (Auto) (0.0-0.7) 10^3/uL Baso # (Auto) (0.0-0.1) 10^3/uL Absolute Nucleated RBC x10^3/uL Nucleated RBC % /100WBC Sodium (135-145) mmol/L Potassium (3.5-5.0) mmol/L Chloride (101-111) mmol/L Carbon Dioxide (21-32) mmol/L Anion Gap (6-13) BUN (6-20) mg/dL Creatinine (0.4-1.0) mg/dL Estimated GFR (MDRD) (>89) Glucose (70-100) mg/dL Lactic Acid 0.7 (0.5-2.2) mmol/L Calcium (8.5-10.3) mg/dL Total Bilirubin (0.2-1.0) mg/dL AST (10-42) IU/L ALT (10-60) IU/L Alkaline Phosphatase (42-121) IU/L B-Natriuretic Peptide 19 (5-100) pg/mL Total Protein (6.7-8.2) g/dL Albumin (3.2-5.5) g/dL Globulin (2.1-4.2) g/dL Albumin/Globulin Ratio (1.0-2.2) Lipase (22-51) U/L Urine Color YELLOW Urine Clarity CLEAR (CLEAR) Urine pH 5.5 (5.0-7.5) PH Ur Specific [place] >=1.030 H (1.002-1.030) Urine Protein NEGATIVE (NEGATIVE) mg/dL Urine Glucose (UA) NEGATIVE (NEGATIVE) mg/dL Urine Ketones NEGATIVE (NEGATIVE) mg/dL Urine Occult Blood NEGATIVE (NEGATIVE) Urine Nitrite NEGATIVE (NEGATIVE) Urine Bilirubin NEGATIVE (NEGATIVE) Urine Urobilinogen 0.2 (NORMAL) (NORMAL) E.U./dL Ur Leukocyte Esterase NEGATIVE (NEGATIVE) Ur Microscopic Review NOT INDICATED Urine Culture Comments NOT INDICATED 02/28/19 02/28/19 Range/Units 11:04 11:04 WBC 12.9 H (4.8-10.8) x10^3/uL RBC 3.89 L (4.20-5.40) 10^6/uL Hgb 11.5 L (12.0-16.0) g/dL Hct 37.6 (37.0-47.0) % MCV 96.7 (81.0-99.0) fL MCH 29.6 (27.0-31.0) pg MCHC 30.6 L (32.0-36.0) g/dL RDW 13.2 (12.0-15.0) % Plt Count 259 (130-450) 10^3/uL MPV 9.4 (7.9-10.8) fL Neut # (Auto) 9.5 H (1.5-6.6) 10^3/uL Lymph # (Auto) 1.9 (1.5-3.5) 10^3/uL Coke # (Auto) 1.1 H (0.0-1.0) 10^3/uL Eos # (Auto) 0.2 (0.0-0.7) 10^3/uL Baso # (Auto) 0.0 (0.0-0.1) 10^3/uL Absolute Nucleated RBC 0.00 x10^3/uL Nucleated RBC % 0.0 /100WBC Sodium 142 (135-145) mmol/L Potassium 3.6 (3.5-5.0) mmol/L Chloride 102 (101-111) mmol/L Carbon Dioxide 31 (21-32) mmol/L Anion Gap 9.0 (6-13) BUN 23 H (6-20) mg/dL Creatinine 0.7 (0.4-1.0) mg/dL Estimated GFR (MDRD) 81 L (>89) Glucose 102 H (70-100) mg/dL Lactic Acid (0.5-2.2) mmol/L Calcium 8.5 (8.5-10.3) mg/dL Total Bilirubin 1.1 H (0.2-1.0) mg/dL AST 15 (10-42) IU/L ALT 18 (10-60) IU/L Alkaline Phosphatase 45 (42-121) IU/L B-Natriuretic Peptide (5-100) pg/mL Total Protein 6.7 (6.7-8.2) g/dL Albumin 3.8 (3.2-5.5) g/dL Globulin 2.9 (2.1-4.2) g/dL Albumin/Globulin Ratio 1.3 (1.0-2.2) Lipase 23 (22-51) U/L Urine Color Urine Clarity (CLEAR) Urine pH (5.0-7.5) PH Ur Specific [place] (1.002-1.030) Urine Protein (NEGATIVE) mg/dL Urine Glucose (UA) (NEGATIVE) mg/dL Urine Ketones (NEGATIVE) mg/dL Urine Occult Blood (NEGATIVE) Urine Nitrite (NEGATIVE) Urine Bilirubin (NEGATIVE) Urine Urobilinogen (NORMAL) E.U./dL Ur Leukocyte Esterase (NEGATIVE) Ur Microscopic Review Urine Culture Comments - Diagnostic Imaging Results Diagnostic Imaging Results: positive: Final report reviewed Diagnostic Imaging Results Comments: EXAM: CHEST RADIOGRAPHY EXAM DATE: 02/28/2019 11:33 AM. IMPRESSION: 1. New patchy opacity at the right lung base is suspicious for pneumonia or aspiration. 2. Chronic linear atelectasis or scarring at the bilateral lung bases appears similar to prior exams. 3. Blunting of the right costophrenic sulcus consistent with a chronic small pleural effusion or scarring, similar to multiple prior exams. Impression/Plan - Problem List Problem List: Right lower lobe pneumonia: -Noted on a 2-view chest x-ray, worse since last imaging in late January, new patchy opacity at the right lung base is suspicious for pneumonia or aspiration -Worsening cough (non-productive) for the past 1 week, started after flying to [place] in mid-January, positive for orthopnea -Chronic home oxygen, for the past 8 years, 2-3L per nasal cannula -Fevers, chills, fatigue, loss of appetite, low back pain & headaches at home -Started on IV Azithromycin & Rocephin in the ED -Continue nebulizers, expectorants, and start IV Zosyn (antipseudomonal/antipneumococcal beta lactam coverage) Acute respiratory failure with hypoxia: -Contributing factors of baseline severe COPD with emphysema, chronic oxygen use, and recurrent pneumonia -Wears 2-3L at home, required 6L soon after arriving in the ED, now down to 3L -No supporting ABGs were obtained, patient has been not been confused -Continue similar home nebulizers, Xopenex, budesonide, treat acute illness Oropharyngeal candidiasis: -Unresolved from prior antibiotics -Upon exam, remains with patchy lesions on tongue and in oral cavity, no pain with swallowing -Nystatin was previously used, now on clotrimazole rocky lozenges 5 times daily for 14 days - Monitor for improvement, encourage good oral hygiene after nebulizers Weight loss: -Likely due to unresolved pneumonia, but differential may include early signs of malignancy - Reports to have lost at least 6 pounds within the past 30-days -Nutritional consult, recommend follow up with PCP outpatient for further work up COPD with emphysema: -Albuterol, Spiriva,Ellipta Proair, and Flonase nasal spray is prescribed for home use -Continue Xopenex, budesonide, and formoterol while inpatient -Continue IV solumedrol, IV Zosyn, routine respiratory cares Hypertension: -Takes Lisinopril at home, now on hold -Soft blood pressures upon admission, 91.73, tachycardia with heart rates 100- 120s -Monitor on telemetry -Consider a repeat echo to evaluate for worsening pulmonary hypertension, last check 05/2017 Other stable or chronic diagnoses: GERD On home oxygen Chronic sinusitis Recurrent pneumonia Tobacco dependence in remission Pulmonary hypertension Chronic back pain Iron deficiency anemia Renal mass of unknown nature Osteoarthritis Hypercholesteremia Quality measures: SCDs and Lovenox daily for DVT prophylaxis. Code status was confirmed with patient, who wishes to remain a FULL code. Core Measures - Anticipated LOS I expect patient to be DC'd or transferred within 96 hours.: Yes - DVT/VTE - Prophylaxis VTE/DVT Device ordered at admit?: Yes VTE/DVT Prophylaxis med ordered at admit?: Yes - Stroke - Rehab Assessment Rehab services assessment to be ordered?: No Not Ordered - Medical Reason: Contraindicated - AMI - Statin at Admit Aspirin Prescribed on Admit: Yes
--- NOTE | 2019-02-28 14:25 | PHARMACY PROGRESS NOTE ---
- Best Possible Medication History Admit Date and Time: 02/28/19 1255 Processed by: Pharmacy Medication History completed: Yes Patient Interview: Completed Secondary Source(s): Prescription bottles, Other family member, Pharmacy records, Insurance records As the person ultimately responsible for medication therapy, providers are able to order a medication from an existing home medication list in [facility] via the "Reconcile Routine" prior to Confirmation of that medication by director of sales support. Such practice is discouraged except when the physician, in their clinical judgment, deems that a medical need exists for a medication without regard to previous use.
[2019-02-28] MEDS: CLOTRIMAZOLE 10 MG LOZENGE MM SCH ×3 (14:28→21:31)
[2019-02-28] MEDS: LEVALBUTEROL 1.25 MG/3 ML NEB INH SCH ×3 (14:53→20:06)
[2019-02-28] MEDS ORDERED: CALCIUM CARBONATE CHEW 500 MG TABLET PO PRN (16:44)
[2019-02-28] MEDS: SIMETHICONE CHEW 80 MG TABLET PO SCH ×2 (17:35→21:30)
[2019-02-28] MEDS: ENOXAPARIN 40 MG/0.4 ML SYRINGE SUBQ SCH (17:36)
[2019-02-28] MEDS: PIPERACILLIN/TAZOBACTAM 3.375 GM in SODIUM CHLORIDE 0.9% MINIBAG 100 ML IV SCH ×2 (17:42→22:38)
[2019-02-28] MEDS: guaiFENesin 600 MG TABLET PO SCH ×2 (17:48→21:30)
[2019-02-28] MEDS: FORMOTEROL FUMARATE NEB 20 MCG/2 ML INH SCH (20:04)
[2019-02-28] MEDS: BUDESONIDE 0.5 MG/2 ML NEB INH SCH (20:05)
[2019-02-28] MEDS: ACETAMINOPHEN 325 MG TABLET PO PRN (21:29)
[2019-02-28] MEDS: FLUTICASONE NASAL SPRAY NAS SCH (21:29)
[2019-02-28] MEDS: SODIUM CHLORIDE FLUSH 0.9% 10 ML SYRINGE IVP PRN ×2 (21:31→22:39)
[2019-02-28] MEDS: guaiFENesin 100 MG/5 ML UDC PO PRN (21:56)
[2019-03-01] MEDS: SODIUM CHLORIDE FLUSH 0.9% 10 ML SYRINGE IVP SCH ×3 (00:43→17:19)
[2019-03-01] MEDS: PIPERACILLIN/TAZOBACTAM 3.375 GM in SODIUM CHLORIDE 0.9% MINIBAG 100 ML IV SCH ×4 (05:05→22:57)
[2019-03-01] MEDS: CLOTRIMAZOLE 10 MG LOZENGE MM SCH ×5 (05:42→22:29)
[2019-03-01] MEDS: methylPREDNISolone SUCCINATE 40 MG/ML VIAL IVP SCH ×3 (05:42→22:36)
[2019-03-01] MEDS: SODIUM CHLORIDE FLUSH 0.9% 10 ML SYRINGE IVP PRN (05:44)
[2019-03-01] MEDS: PANTOPRAZOLE 40 MG TABLET PO SCH (06:00)
[2019-03-01 06:32] LABS: BASOPHILS % (AUTO) 0.2 %; HGB - HEMOGLOBIN 11.1 g/dL (12.0-16.0); LYMPHOCYTES # (AUTO) 1.1 10^3/uL (1.5-3.5); LYMPHOCYTES % (AUTO) 9.6 %; MEAN CORPUSCULAR HEMOGLOBIN 30.2 pg (27.0-31.0); MEAN CORPUSCULAR HGB CONC 30.7 g/dL (32.0-36.0); MEAN CORPUSCULAR VOLUME 98.1 fL (81.0-99.0); MEAN PLATELET VOLUME 9.7 fL (7.9-10.8); MONOCYTES # (AUTO) 0.5 10^3/uL (0.0-1.0); MONOCYTES % (AUTO) 4.8 %; NEUTROPHILS # (AUTO) 9.4 10^3/uL (1.5-6.6); NEUTROPHILS % (AUTO) 83.8 %; PLT - PLATELET COUNT 277 10^3/uL (130-450); RED BLOOD COUNT 3.68 10^6/uL (4.20-5.40); RED CELL DISTRIBUTION WIDTH 13.2 % (12.0-15.0); WHITE BLOOD COUNT 11.3 x10^3/uL (4.8-10.8)
[2019-03-01 06:41] LABS: CALCIUM 8.3 mg/dL (8.5-10.3); CREATININE 0.8 mg/dL (0.4-1.0); MAGNESIUM 2.5 mg/dL (1.7-2.8)
[2019-03-01] MEDS: LEVALBUTEROL 1.25 MG/3 ML NEB INH SCH ×5 (07:45→21:44)
[2019-03-01] MEDS: BUDESONIDE 0.5 MG/2 ML NEB INH SCH ×2 (07:46→21:44)
[2019-03-01] MEDS: FORMOTEROL FUMARATE NEB 20 MCG/2 ML INH SCH ×2 (07:46→21:44)
[2019-03-01] MEDS: guaiFENesin 600 MG TABLET PO SCH ×2 (10:01→22:29)
[2019-03-01] MEDS: ACETAMINOPHEN 325 MG TABLET PO PRN ×2 (10:01→22:56)
[2019-03-01] MEDS: FLUTICASONE NASAL SPRAY NAS SCH ×2 (10:02→22:30)
[2019-03-01] MEDS: SIMETHICONE CHEW 80 MG TABLET PO SCH ×4 (10:02→22:28)
[2019-03-01] MEDS: guaiFENesin 100 MG/5 ML UDC PO PRN ×2 (10:02→22:55)
[2019-03-01] MEDS: ENOXAPARIN 40 MG/0.4 ML SYRINGE SUBQ SCH (10:02)
[2019-03-01] MEDS: AZITHROMYCIN 250 MG TABLET PO SCH (10:02)
--- NOTE | 2019-03-01 16:30 | PROVIDER PROGRESS NOTE ---
Assessment/Plan - Problem List (1) Pneumonia Qualifiers: Pneumonia type: due to unspecified organism Laterality: right Lung location: lower lobe of lung Qualified Code(s): J18.9 - Pneumonia, unspecified organism Assessment/Plan: Right lower lobe pneumonia: CXR reveals right lobe pneumonia. pt still present significant wheezing, and crackles specially at right lower lung. blood culture is negative for bacteremia. add Azithyromycin, continue Zosyn increase Solu-medrol to 80 mg Tid sputum culture breath treatment Acute respiratory failure with hypoxia: Pt used 2-3 liter of O2 at home. pt present shortness of breath, cough, wheezing, fever, chill at admission. contributing factors of baseline severe COPD with emphysema, and recurrent pneumonia. continue antibiotics, and breath treatment, supplement of O2 as needed Oropharyngeal candidiasis: controlled, continue Nystatin. it is likely by steroid and antibiotics usage at home Weight loss: -CXR did not reveal nodule. it is Likely due to severe COPD plus infection, we will continue monitor to see if pt need further study. 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 COPD with exacerbation: Continue Xopenex, budesonide, and formoterol while inpatient increase solu-metrol to 80 mg Tid since pt clinically did not have much improved, still present significant wheezing and crackles sound Hypertension: stable, continue Lisinopril at home - Current Meds Current Meds: Current Medications Generic Name Dose Route Start Last Admin Trade Name Freq PRN Reason Stop Dose Admin Acetaminophen 650 mg 02/28/19 14:18 03/01/19 10:01 Tylenol PO 650 mg Q4HR PRN Administration Pain or Fever > 38C (100.4F) Azithromycin 250 mg 03/01/19 09:00 03/01/19 10:02 Zithromax PO 250 mg DAILY KATHLEEN Administration Budesonide 0.5 mg 02/28/19 19:00 03/01/19 07:46 Pulmicort INH 0.5 mg RTBID KATHLEEN Administration Clotrimazole 10 mg 02/28/19 15:00 03/01/19 14:50 MM 03/14/19 14:59 10 mg 5XD KATHLEEN Administration Enoxaparin Sodium 40 mg 02/28/19 16:45 03/01/19 10:02 Lovenox SUBQ 40 mg DAILY KATHLEEN Administration Fluticasone Propionate 1 sprays 02/28/19 21:00 03/01/19 10:02 Flonase TEAGAN 1 spr BID KATHLEEN Administration Formoterol Fumarate 20 mcg 02/28/19 19:00 03/01/19 07:46 Perforomist INH 20 mcg RTBID KATHLEEN Administration Guaifenesin 600 mg 02/28/19 17:25 03/01/19 10:01 Mucinex PO 600 mg BID KATHLEEN Administration Guaifenesin 100 mg 02/28/19 21:46 03/01/19 10:02 Robitussin Liquid PO 100 mg Q6HR PRN Administration Cough Piperacillin Sod/Tazobactam 100 mls @ 200 mls/hr 02/28/19 17:00 03/01/19 13:10 Sod 3.375 gm/ Sodium Chloride IV Infused Q6H KATHLEEN Infusion Levalbuterol HCl 1.25 mg 02/28/19 14:00 03/01/19 12:53 Xopenex INH 1.25 mg QID KATHLEEN Administration Methylprednisolone 80 mg 03/01/19 12:00 03/01/19 12:13 Solu-Medrol (40mg Vial) IVP 80 mg TID KATHLEEN Administration Pantoprazole Sodium 40 mg 03/01/19 07:00 03/01/19 06:00 Protonix PO 40 mg QDAC KATHLEEN Administration Simethicone 80 mg 02/28/19 18:00 03/01/19 13:17 Mylicon PO 80 mg 0900,1300,1800,2100 KATHLEEN Administration Sodium Chloride 10 ml 02/28/19 12:53 03/01/19 05:44 Normal Saline Flush 0.9% IVP 10 ml PRN PRN Administration NEEDED PER PROVIDER ORDERS Sodium Chloride 10 ml 02/28/19 17:00 03/01/19 10:03 Normal Saline Flush 0.9% IVP 10 ml 0100,0900,1700 KATHLEEN Administration - Lab Result Fish Bone Diagrams: 03/02/19 05:39 03/02/19 05:39 - Additional Planning My Orders: My Active Orders 03/01/19 09:00 Azithromycin [Zithromax] 250 mg PO DAILY 03/01/19 12:00 methylPREDNISolone SUCCINATE [SOLU-Medrol (40MG VIAL)] 80 mg IVP TID 03/01/19 15:39 Telemetry- [RC] Q4HR 03/01/19 17:00 Saccharomyces Boulardii [Florastor] 250 mg PO BIDWM Subjective - Subjective Patient Reports: Cough, Shortness of Breath Objective Vital Signs: Vital Signs - 24 hr 02/28/19 02/28/19 03/01/19 19:42 20:07 00:40 Temperature 36.6 C 36.3 C L Heart Rate 70 Heart Rate [ 74 75 Brachial] Respiratory 16 18 20 Rate Blood Pressure 128/51 L 123/50 L [Right Brachial artery] O2 Saturation 97 97 03/01/19 03/01/19 03/01/19 05:00 07:45 08:15 Temperature 36.2 C L 36.2 C L 36.7 C Heart Rate 79 Heart Rate [ 65 99 Brachial] Respiratory 20 18 24 Rate Blood Pressure 145/54 H 151/52 H [Right Brachial artery] O2 Saturation 96 97 94 03/01/19 03/01/19 03/01/19 11:53 12:55 16:19 Temperature 36.8 C 36.6 C Heart Rate 93 Heart Rate [ 79 85 Brachial] Respiratory 24 20 18 Rate Blood Pressure 144/52 H 165/65 H [Right Brachial artery] O2 Saturation 95 95 Oxygen O2 Source [Without Activity] Nasal cannula O2 Source Nasal cannula Oxygen Flow Rate 6 I&O (Last 24 Hrs): Intake and Output Totals x24h 02/27/19 02/28/19 03/01/19 23:59 23:59 23:59 Intake Total 990 590 Output Total 375 Balance 990 215 General: Alert, Mild distress HEENT: Atraumatic, PERRLA, EOMI Neck: Supple Lymphatic: no adenopathy Neuro: Alert, Non Focal, Oriented Times 3 Cardiovascular: Regular rate, Normal S1, Normal S2 Respiratory: Chest non-tender, Wheezes, Rhonchi Abdomen: Normal bowel sounds, Soft Extremities: No edema, Normal pulses - Results Results: Laboratory Results WBC 11.3 x10^3/uL (4.8-10.8) H 03/01/19 06:00 RBC 3.68 10^6/uL (4.20-5.40) L 03/01/19 06:00 Hgb 11.1 g/dL (12.0-16.0) L 03/01/19 06:00 Hct 36.1 % (37.0-47.0) L 03/01/19 06:00 MCV 98.1 fL (81.0-99.0) 03/01/19 06:00 MCH 30.2 pg (27.0-31.0) 03/01/19 06:00 MCHC 30.7 g/dL (32.0-36.0) L 03/01/19 06:00 RDW 13.2 % (12.0-15.0) 03/01/19 06:00 Plt Count 277 10^3/uL (130-450) 03/01/19 06:00 MPV 9.7 fL (7.9-10.8) 03/01/19 06:00 Neut # (Auto) 9.4 10^3/uL (1.5-6.6) H 03/01/19 06:00 Lymph # (Auto) 1.1 10^3/uL (1.5-3.5) L 03/01/19 06:00 [place] # (Auto) 0.5 10^3/uL (0.0-1.0) 03/01/19 06:00 Eos # (Auto) 0.0 10^3/uL (0.0-0.7) 03/01/19 06:00 Baso # (Auto) 0.0 10^3/uL (0.0-0.1) 03/01/19 06:00 Absolute Nucleated RBC 0.00 x10^3/uL 03/01/19 06:00 Nucleated RBC % 0.0 /100WBC 03/01/19 06:00 Sodium 144 mmol/L (135-145) 03/01/19 06:00 Potassium 3.7 mmol/L (3.5-5.0) 03/01/19 06:00 Chloride 103 mmol/L (101-111) 03/01/19 06:00 Carbon Dioxide 32 mmol/L (21-32) 03/01/19 06:00 Anion Gap 9.0 (6-13) 03/01/19 06:00 BUN 19 mg/dL (6-20) 03/01/19 06:00 Creatinine 0.8 mg/dL (0.4-1.0) 03/01/19 06:00 Estimated GFR (MDRD) 70 (>89) L 03/01/19 06:00 Glucose 153 mg/dL (70-100) H 03/01/19 06:00 Lactic Acid 0.7 mmol/L (0.5-2.2) 02/28/19 11:19 Calcium 8.3 mg/dL (8.5-10.3) L 03/01/19 06:00 Magnesium 2.5 mg/dL (1.7-2.8) 03/01/19 06:00 Total Bilirubin 1.1 mg/dL (0.2-1.0) H 02/28/19 11:04 AST 15 IU/L (10-42) 02/28/19 11:04 ALT 18 IU/L (10-60) 02/28/19 11:04 Alkaline Phosphatase 45 IU/L (42-121) 02/28/19 11:04 B-Natriuretic Peptide 19 pg/mL (5-100) 02/28/19 11:19 Total Protein 6.7 g/dL (6.7-8.2) 02/28/19 11:04 Albumin 3.8 g/dL (3.2-5.5) 02/28/19 11:04 Globulin 2.9 g/dL (2.1-4.2) 02/28/19 11:04 Albumin/Globulin Ratio 1.3 (1.0-2.2) 02/28/19 11:04 Lipase 23 U/L (22-51) 02/28/19 11:04 Urine Color YELLOW 02/28/19 14:05 Urine Clarity CLEAR (CLEAR) 02/28/19 14:05 Urine pH 5.5 PH (5.0-7.5) 02/28/19 14:05 Ur Specific [place] >=1.030 (1.002-1.030) H 02/28/19 14:05 Urine Protein NEGATIVE mg/dL (NEGATIVE) 02/28/19 14:05 Urine Glucose (UA) NEGATIVE mg/dL (NEGATIVE) 02/28/19 14:05 Urine Ketones NEGATIVE mg/dL (NEGATIVE) 02/28/19 14:05 Urine Occult Blood NEGATIVE (NEGATIVE) 02/28/19 14:05 Urine Nitrite NEGATIVE (NEGATIVE) 02/28/19 14:05 Urine Bilirubin NEGATIVE (NEGATIVE) 02/28/19 14:05 Urine Urobilinogen 0.2 (NORMAL) E.U./dL (NORMAL) 02/28/19 14:05 Ur Leukocyte Esterase NEGATIVE (NEGATIVE) 02/28/19 14:05 Ur Microscopic Review NOT INDICATED 02/28/19 14:05 Urine Culture Comments NOT INDICATED 02/28/19 14:05 Influenza A (Rapid) Negative (Negative) 02/28/19 14:40 Influenza B (Rapid) Negative (Negative) 02/28/19 14:40 - Procedures Procedures: Procedures EXCISION OF DUODENUM, ENDO, DIAGN (10/26/18) EXCISION OF RECTUM, ENDO (10/26/18) EXCISION OF STOMACH, PYLORUS, ENDO, DIAGN (10/26/18) EXCISION OF UTERUS, ENDO (08/12/18) EXTRACTION OF ENDOMETRIUM, ENDO (08/12/18) ABX Reporting Has patient been on IV antibiotics over the past 48 hours?: Yes Current Medications - Current Medications Current Medications: Active Medications Acetaminophen (Tylenol) 650 mg PO Q4HR PRN PRN Reason: Pain or Fever > 38C (100.4F) Last Admin: 03/02/19 10:27 Dose: 650 mg Azithromycin (Zithromax) 250 mg PO DAILY [facility] Last Admin: 03/02/19 08:21 Dose: 250 mg Budesonide (Pulmicort) 0.5 mg INH RTBID [facility] Last Admin: 03/02/19 07:52 Dose: 0.5 mg Calcium Carbonate/Glycine (Tums) 500 mg PO QID PRN PRN Reason: Heartburn Clotrimazole () 10 mg MM 5XD [facility] Stop: 03/14/19 14:59 Last Admin: 03/02/19 10:28 Dose: 10 mg Enoxaparin Sodium (Lovenox) 40 mg SUBQ DAILY [facility] Last Admin: 03/02/19 08:21 Dose: 40 mg Ferrous Sulfate (Feosol) 325 mg PO BIDWM [facility] Fluticasone Propionate (Flonase) 1 sprays TEAGAN BID [facility] Last Admin: 03/02/19 08:22 Dose: 1 spr Formoterol Fumarate (Perforomist) 20 mcg INH RTBID [facility] Last Admin: 03/02/19 07:51 Dose: 20 mcg Guaifenesin (Mucinex) 600 mg PO BID [facility] Last Admin: 03/02/19 08:21 Dose: 600 mg Guaifenesin (Robitussin Liquid) 100 mg PO Q6HR PRN PRN Reason: Cough Last Admin: 03/01/19 22:55 Dose: 100 mg Piperacillin Sod/Tazobactam (Sod 3.375 gm/ Sodium Chloride) 100 mls @ 200 mls/hr IV Q6H [facility] Last Admin: 03/02/19 10:26 Dose: 200 mls/hr Ibuprofen (Motrin) 600 mg PO Q6HR PRN PRN Reason: PAIN Levalbuterol HCl (Xopenex) 1.25 mg INH Q4H PRN PRN Reason: Shortness of Air/Wheezing Levalbuterol HCl (Xopenex) 1.25 mg INH RTQID [facility] Last Admin: 03/02/19 11:20 Dose: 1.25 mg Lisinopril (Zestril) 10 mg PO DAILY [facility] Methylprednisolone (Solu-Medrol (40mg Vial)) 80 mg IVP TID [facility] Last Admin: 03/02/19 06:04 Dose: 80 mg Pantoprazole Sodium (Protonix) 40 mg PO QDAC [facility] Last Admin: 03/02/19 06:03 Dose: 40 mg Saccharomyces Boulardii (Florastor) 250 mg PO BIDWM [facility] Last Admin: 03/02/19 08:21 Dose: 250 mg Simethicone (Mylicon) 80 mg PO 0900,1300,1800,2100 [facility] Last Admin: 03/02/19 08:22 Dose: 80 mg Sodium Chloride (Normal Saline Flush 0.9%) 10 ml IVP PRN PRN PRN Reason: NEEDED PER PROVIDER ORDERS Last Admin: 03/01/19 05:44 Dose: 10 ml Sodium Chloride (Normal Saline Flush 0.9%) 10 ml IVP 0100,0900,1700 [facility] Last Admin: 03/02/19 10:28 Dose: 10 ml Pantoprazole [Protonix] 40 mg PO QDAC 12/09/15 lisinopriL [Lisinopril] 10 mg PO DAILY 12/09/15 Albuterol Sulfate [Proair Hfa Inhaler] 2 puffs INH Q4H PRN 05/01/17 Tiotropium Shafer [Spiriva] 1 puffs INH DAILY 05/01/17 Atorvastatin [Lipitor] 10 mg PO QPM 08/10/18 Cyanocobalamin (Vitamin B-12) [Vitamin B-12] 1,000 mcg PO DAILY 08/10/18 Ferrous Sulfate 1 tab PO BID 08/10/18 Fluticasone [Flonase] 1 sprays TEAGAN BID 08/10/18 Fluticasone/Vilanterol [Breo Ellipta 200-25 Mcg INH] 1 each IH DAILY 08/10/18 Albuterol 2.5 mg INH Q4H PRN 02/28/19 Ibuprofen [Advil] 200 - 400 mg PO Q6H PRN 02/28/19
[2019-03-01] MEDS: SACCHAROMYCES BOULARDII 250 MG CAPSULE PO SCH (17:18)
[2019-03-02] MEDS: SODIUM CHLORIDE FLUSH 0.9% 10 ML SYRINGE IVP SCH ×4 (03:09→17:36)
[2019-03-02 05:57] LABS: BASOPHILS % (AUTO) 0.2 %; LYMPHOCYTES # (AUTO) 0.8 10^3/uL (1.5-3.5); LYMPHOCYTES % (AUTO) 7.8 %; MEAN CORPUSCULAR HEMOGLOBIN 29.3 pg (27.0-31.0); MEAN CORPUSCULAR HGB CONC 30.9 g/dL (32.0-36.0); MEAN PLATELET VOLUME 9.6 fL (7.9-10.8); MONOCYTES # (AUTO) 0.5 10^3/uL (0.0-1.0); NEUTROPHILS # (AUTO) 8.8 10^3/uL (1.5-6.6); NEUTROPHILS % (AUTO) 85.3 %; PLT - PLATELET COUNT 233 10^3/uL (130-450); RED BLOOD COUNT 3.41 10^6/uL (4.20-5.40); RED CELL DISTRIBUTION WIDTH 13.2 % (12.0-15.0); WHITE BLOOD COUNT 10.3 x10^3/uL (4.8-10.8)
[2019-03-02] MEDS: PANTOPRAZOLE 40 MG TABLET PO SCH (06:03)
[2019-03-02] MEDS: CLOTRIMAZOLE 10 MG LOZENGE MM SCH ×5 (06:03→21:33)
[2019-03-02] MEDS: methylPREDNISolone SUCCINATE 40 MG/ML VIAL IVP SCH ×3 (06:04→21:33)
[2019-03-02] MEDS: PIPERACILLIN/TAZOBACTAM 3.375 GM in SODIUM CHLORIDE 0.9% MINIBAG 100 ML IV SCH ×4 (06:04→22:37)
[2019-03-02 06:10] LABS: CALCIUM 8.1 mg/dL (8.5-10.3); CREATININE 0.8 mg/dL (0.4-1.0)
[2019-03-02] MEDS: FORMOTEROL FUMARATE NEB 20 MCG/2 ML INH SCH ×2 (07:51→20:42)
[2019-03-02] MEDS: LEVALBUTEROL 1.25 MG/3 ML NEB INH SCH ×4 (07:52→20:42)
[2019-03-02] MEDS: BUDESONIDE 0.5 MG/2 ML NEB INH SCH ×2 (07:52→20:42)
[2019-03-02] MEDS: SACCHAROMYCES BOULARDII 250 MG CAPSULE PO SCH ×2 (08:21→17:34)
[2019-03-02] MEDS: ENOXAPARIN 40 MG/0.4 ML SYRINGE SUBQ SCH (08:21)
[2019-03-02] MEDS: guaiFENesin 600 MG TABLET PO SCH ×2 (08:21→21:32)
[2019-03-02] MEDS: AZITHROMYCIN 250 MG TABLET PO SCH (08:21)
[2019-03-02] MEDS: FLUTICASONE NASAL SPRAY NAS SCH ×2 (08:22→21:34)
[2019-03-02] MEDS: SIMETHICONE CHEW 80 MG TABLET PO SCH ×4 (08:22→21:32)
[2019-03-02] MEDS: ACETAMINOPHEN 325 MG TABLET PO PRN ×3 (10:27→21:32)
--- NOTE | 2019-03-02 12:04 | PROVIDER PROGRESS NOTE ---
Assessment/Plan - Problem List (1) Pneumonia Qualifiers: Pneumonia type: due to unspecified organism Laterality: right Lung location: lower lobe of lung Qualified Code(s): J18.9 - Pneumonia, unspecified organism Assessment/Plan: Right lower lobe pneumonia: 03/02 pt feel she has limited improved, she report she still some shortness of breath on exertion. however pt's lung sound is significant improved. pt has 96/97% on 3 liter of O2. pt took 2-3 liter of O2 at home. continue Azithyromycin, continue Zosyn sputum culture is pending continue breath treatment, and supplement of O2 CXR reveals right lobe pneumonia. pt still present significant wheezing, and cr ackles specially at right lower lung. blood culture is negative for bacteremia. add Azithyromycin, continue Zosyn increase Solu-medrol to 80 mg Tid sputum culture breath treatment Acute respiratory failure with hypoxia: Pt used 2-3 liter of O2 at home. pt present shortness of breath, cough, wheezing, fever, chill at admission. contributing factors of baseline severe COPD with emphysema, and recurrent pneumonia. continue antibiotics, and breath treatment, supplement of O2 as needed Oropharyngeal candidiasis: controlled, continue Nystatin. it is likely by steroid and antibiotics usage at home Weight loss: -03/02 if clinic pt still report limited improved, CT of chest be consideration. CXR did not reveal nodule. it is Likely due to severe COPD plus infection, we will continue monitor to see if pt need further study. 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 pt's wheezing sound is significantly improved. continue IV of solu- medrol, antibiotics, Duoneb, Albuterol PRN, and supplement of O2 Continue Xopenex, budesonide, and formoterol while inpatient increase solu-metrol to 80 mg Tid since pt clinically did not have much improved, still present significant wheezing and crackles sound Hypertension: stable, continue Lisinopril at home - Current Meds Current Meds: Current Medications Generic Name Dose Route Start Last Admin Trade Name Freq PRN Reason Stop Dose Admin Acetaminophen 650 mg 02/28/19 14:18 03/02/19 10:27 Tylenol PO 650 mg Q4HR PRN Administration Pain or Fever > 38C (100.4F) Azithromycin 250 mg 03/01/19 09:00 03/02/19 08:21 Zithromax PO 250 mg DAILY KATHLEEN Administration Budesonide 0.5 mg 02/28/19 19:00 03/02/19 07:52 Pulmicort INH 0.5 mg RTBID KATHLEEN Administration Clotrimazole 10 mg 02/28/19 15:00 03/02/19 10:28 MM 03/14/19 14:59 10 mg 5XD KATHLEEN Administration Enoxaparin Sodium 40 mg 02/28/19 16:45 03/02/19 08:21 Lovenox SUBQ 40 mg DAILY KATHLEEN Administration Fluticasone Propionate 1 sprays 02/28/19 21:00 03/02/19 08:22 Flonase TEAGAN 1 spr BID KATHLEEN Administration Formoterol Fumarate 20 mcg 02/28/19 19:00 03/02/19 07:51 Perforomist INH 20 mcg RTBID KATHLEEN Administration Guaifenesin 600 mg 02/28/19 17:25 03/02/19 08:21 Mucinex PO 600 mg BID KATHLEEN Administration Guaifenesin 100 mg 02/28/19 21:46 03/01/19 22:55 Robitussin Liquid PO 100 mg Q6HR PRN Administration Cough Piperacillin Sod/Tazobactam 100 mls @ 200 mls/hr 02/28/19 17:00 03/02/19 10:26 Sod 3.375 gm/ Sodium Chloride IV 200 mls/hr Q6H KATHLEEN Administration Levalbuterol HCl 1.25 mg 03/02/19 11:00 03/02/19 11:20 Xopenex INH 1.25 mg RTQID KATHLEEN Administration Methylprednisolone 80 mg 03/01/19 12:00 03/02/19 06:04 Solu-Medrol (40mg Vial) IVP 80 mg TID KATHLEEN Administration Pantoprazole Sodium 40 mg 03/01/19 07:00 03/02/19 06:03 Protonix PO 40 mg QDAC KATHLEEN Administration Saccharomyces Boulardii 250 mg 03/01/19 17:00 03/02/19 08:21 Florastor PO 250 mg BIDWM KATHLEEN Administration Simethicone 80 mg 02/28/19 18:00 03/02/19 08:22 Mylicon PO 80 mg 0900,1300,1800,2100 KATHLEEN Administration Sodium Chloride 10 ml 02/28/19 12:53 03/01/19 05:44 Normal Saline Flush 0.9% IVP 10 ml PRN PRN Administration NEEDED PER PROVIDER ORDERS Sodium Chloride 10 ml 02/28/19 17:00 03/02/19 10:28 Normal Saline Flush 0.9% IVP 10 ml 0100,0900,1700 KATHLEEN Administration - Lab Result Fish Bone Diagrams: 03/02/19 05:39 03/02/19 05:39 - Additional Planning My Orders: My Active Orders 03/03/19 05:00 BMP - BASIC METABOLIC PANEL [CHEM] DAILYLAB CBC - COMP BLD CT W/AUTO DIFF [HEME] DAILYLAB 03/04/19 05:00 BMP - BASIC METABOLIC PANEL [CHEM] DAILYLAB CBC - COMP BLD CT W/AUTO DIFF [HEME] DAILYLAB 03/05/19 05:00 BMP - BASIC METABOLIC PANEL [CHEM] DAILYLAB CBC - COMP BLD CT W/AUTO DIFF [HEME] DAILYLAB 03/06/19 05:00 BMP - BASIC METABOLIC PANEL [CHEM] DAILYLAB CBC - COMP BLD CT W/AUTO DIFF [HEME] DAILYLAB 03/01/19 12:00 methylPREDNISolone SUCCINATE [SOLU-Medrol (40MG VIAL)] 80 mg IVP TID 03/01/19 15:39 Telemetry- [RC] Q4HR 03/01/19 17:00 Saccharomyces Boulardii [Florastor] 250 mg PO BIDWM 03/02/19 10:45 lisinopriL [Zestril] 10 mg PO DAILY 03/02/19 11:00 Levalbuterol [Xopenex] 1.25 mg INH RTQID 03/02/19 17:00 Ferrous Sulfate [Feosol] 325 mg PO BIDWM Subjective - Subjective Patient Reports: Cough Objective Vital Signs: Vital Signs - 24 hr 03/01/19 03/01/19 03/01/19 12:55 16:19 17:35 Temperature 36.6 C Heart Rate 93 81 Heart Rate [ 85 Brachial] Respiratory 20 18 18 Rate Blood Pressure 165/65 H [Right Brachial artery] O2 Saturation 95 03/01/19 03/01/19 03/01/19 21:00 21:45 21:46 Temperature 36.6 C Heart Rate 87 80 Heart Rate [ 76 Brachial] Respiratory 20 20 20 Rate Blood Pressure 151/59 H [Right Brachial artery] O2 Saturation 96 03/02/19 03/02/19 03/02/19 00:20 03:58 07:50 Temperature 36.4 C L 36.6 C Heart Rate 81 Heart Rate [ 93 81 Brachial] Respiratory 20 20 16 Rate Blood Pressure 151/56 H 161/64 H [Right Brachial artery] O2 Saturation 96 97 03/02/19 03/02/19 08:19 11:21 Temperature 36.6 C Heart Rate 81 Heart Rate [ 79 Brachial] Respiratory 20 16 Rate Blood Pressure 155/58 H [Right Brachial artery] O2 Saturation 96 Oxygen O2 Source [Without Activity] Nasal cannula O2 Source Nasal cannula Oxygen Flow Rate 6 I&O (Last 24 Hrs): Intake and Output Totals x24h 02/28/19 03/01/19 03/02/19 23:59 23:59 23:59 Intake Total 990 1270 320 Output Total 625 450 Balance 990 645 -130 General: Alert, No acute distress HEENT: Atraumatic, PERRLA, EOMI Neck: Supple Lymphatic: no adenopathy Neuro: Alert, Non Focal, Oriented Times 3 Cardiovascular: Regular rate, Normal S1, Normal S2 Respiratory: Chest non-tender, Rhonchi Abdomen: Normal bowel sounds, Soft Extremities: No edema, Normal pulses - Results Results: Laboratory Results WBC 10.3 x10^3/uL (4.8-10.8) 03/02/19 05:39 RBC 3.41 10^6/uL (4.20-5.40) L 03/02/19 05:39 Hgb 10.0 g/dL (12.0-16.0) L 03/02/19 05:39 Hct 32.4 % (37.0-47.0) L 03/02/19 05:39 MCV 95.0 fL (81.0-99.0) 03/02/19 05:39 MCH 29.3 pg (27.0-31.0) 03/02/19 05:39 MCHC 30.9 g/dL (32.0-36.0) L 03/02/19 05:39 RDW 13.2 % (12.0-15.0) 03/02/19 05:39 Plt Count 233 10^3/uL (130-450) 03/02/19 05:39 MPV 9.6 fL (7.9-10.8) 03/02/19 05:39 Neut # (Auto) 8.8 10^3/uL (1.5-6.6) H 03/02/19 05:39 Lymph # (Auto) 0.8 10^3/uL (1.5-3.5) L 03/02/19 05:39 [place] # (Auto) 0.5 10^3/uL (0.0-1.0) 03/02/19 05:39 Eos # (Auto) 0.0 10^3/uL (0.0-0.7) 03/02/19 05:39 Baso # (Auto) 0.0 10^3/uL (0.0-0.1) 03/02/19 05:39 Absolute Nucleated RBC 0.00 x10^3/uL 03/02/19 05:39 Nucleated RBC % 0.0 /100WBC 03/02/19 05:39 Sodium 141 mmol/L (135-145) 03/02/19 05:39 Potassium 3.6 mmol/L (3.5-5.0) 03/02/19 05:39 Chloride 104 mmol/L (101-111) 03/02/19 05:39 Carbon Dioxide 31 mmol/L (21-32) 03/02/19 05:39 Anion Gap 6.0 (6-13) 03/02/19 05:39 BUN 20 mg/dL (6-20) 03/02/19 05:39 Creatinine 0.8 mg/dL (0.4-1.0) 03/02/19 05:39 Estimated GFR (MDRD) 70 (>89) L 03/02/19 05:39 Glucose 148 mg/dL (70-100) H 03/02/19 05:39 Lactic Acid 0.7 mmol/L (0.5-2.2) 02/28/19 11:19 Calcium 8.1 mg/dL (8.5-10.3) L 03/02/19 05:39 Magnesium 2.5 mg/dL (1.7-2.8) 03/01/19 06:00 Total Bilirubin 1.1 mg/dL (0.2-1.0) H 02/28/19 11:04 AST 15 IU/L (10-42) 02/28/19 11:04 ALT 18 IU/L (10-60) 02/28/19 11:04 Alkaline Phosphatase 45 IU/L (42-121) 02/28/19 11:04 B-Natriuretic Peptide 19 pg/mL (5-100) 02/28/19 11:19 Total Protein 6.7 g/dL (6.7-8.2) 02/28/19 11:04 Albumin 3.8 g/dL (3.2-5.5) 02/28/19 11:04 Globulin 2.9 g/dL (2.1-4.2) 02/28/19 11:04 Albumin/Globulin Ratio 1.3 (1.0-2.2) 02/28/19 11:04 Lipase 23 U/L (22-51) 02/28/19 11:04 Urine Color YELLOW 02/28/19 14:05 Urine Clarity CLEAR (CLEAR) 02/28/19 14:05 Urine pH 5.5 PH (5.0-7.5) 02/28/19 14:05 Ur Specific [place] >=1.030 (1.002-1.030) H 02/28/19 14:05 Urine Protein NEGATIVE mg/dL (NEGATIVE) 02/28/19 14:05 Urine Glucose (UA) NEGATIVE mg/dL (NEGATIVE) 02/28/19 14:05 Urine Ketones NEGATIVE mg/dL (NEGATIVE) 02/28/19 14:05 Urine Occult Blood NEGATIVE (NEGATIVE) 02/28/19 14:05 Urine Nitrite NEGATIVE (NEGATIVE) 02/28/19 14:05 Urine Bilirubin NEGATIVE (NEGATIVE) 02/28/19 14:05 Urine Urobilinogen 0.2 (NORMAL) E.U./dL (NORMAL) 02/28/19 14:05 Ur Leukocyte Esterase NEGATIVE (NEGATIVE) 02/28/19 14:05 Ur Microscopic Review NOT INDICATED 02/28/19 14:05 Urine Culture Comments NOT INDICATED 02/28/19 14:05 Influenza A (Rapid) Negative (Negative) 02/28/19 14:40 Influenza B (Rapid) Negative (Negative) 02/28/19 14:40 - Procedures Procedures: Procedures EXCISION OF DUODENUM, ENDO, DIAGN (10/26/18) EXCISION OF RECTUM, ENDO (10/26/18) EXCISION OF STOMACH, PYLORUS, ENDO, DIAGN (10/26/18) EXCISION OF UTERUS, ENDO (08/12/18) EXTRACTION OF ENDOMETRIUM, ENDO (08/12/18) ABX Reporting Has patient been on IV antibiotics over the past 48 hours?: Yes Current Medications - Current Medications Current Medications: Active Medications Acetaminophen (Tylenol) 650 mg PO Q4HR PRN PRN Reason: Pain or Fever > 38C (100.4F) Last Admin: 03/02/19 10:27 Dose: 650 mg Azithromycin (Zithromax) 250 mg PO DAILY [facility] Last Admin: 03/02/19 08:21 Dose: 250 mg Budesonide (Pulmicort) 0.5 mg INH RTBID [facility] Last Admin: 03/02/19 07:52 Dose: 0.5 mg Calcium Carbonate/Glycine (Tums) 500 mg PO QID PRN PRN Reason: Heartburn Clotrimazole () 10 mg MM 5XD [facility] Stop: 03/14/19 14:59 Last Admin: 03/02/19 10:28 Dose: 10 mg Enoxaparin Sodium (Lovenox) 40 mg SUBQ DAILY [facility] Last Admin: 03/02/19 08:21 Dose: 40 mg Ferrous Sulfate (Feosol) 325 mg PO BIDWM [facility] Fluticasone Propionate (Flonase) 1 sprays TEAGAN BID [facility] Last Admin: 03/02/19 08:22 Dose: 1 spr Formoterol Fumarate (Perforomist) 20 mcg INH RTBID [facility] Last Admin: 03/02/19 07:51 Dose: 20 mcg Guaifenesin (Mucinex) 600 mg PO BID [facility] Last Admin: 03/02/19 08:21 Dose: 600 mg Guaifenesin (Robitussin Liquid) 100 mg PO Q6HR PRN PRN Reason: Cough Last Admin: 03/01/19 22:55 Dose: 100 mg Piperacillin Sod/Tazobactam (Sod 3.375 gm/ Sodium Chloride) 100 mls @ 200 mls/hr IV Q6H [facility] Last Admin: 03/02/19 10:26 Dose: 200 mls/hr Ibuprofen (Motrin) 600 mg PO Q6HR PRN PRN Reason: PAIN Levalbuterol HCl (Xopenex) 1.25 mg INH Q4H PRN PRN Reason: Shortness of Air/Wheezing Levalbuterol HCl (Xopenex) 1.25 mg INH RTQID [facility] Last Admin: 03/02/19 11:20 Dose: 1.25 mg Lisinopril (Zestril) 10 mg PO DAILY [facility] Methylprednisolone (Solu-Medrol (40mg Vial)) 80 mg IVP TID [facility] Last Admin: 03/02/19 06:04 Dose: 80 mg Pantoprazole Sodium (Protonix) 40 mg PO QDAC [facility] Last Admin: 03/02/19 06:03 Dose: 40 mg Saccharomyces Boulardii (Florastor) 250 mg PO BIDWM [facility] Last Admin: 03/02/19 08:21 Dose: 250 mg Simethicone (Mylicon) 80 mg PO 0900,1300,1800,2100 [facility] Last Admin: 03/02/19 08:22 Dose: 80 mg Sodium Chloride (Normal Saline Flush 0.9%) 10 ml IVP PRN PRN PRN Reason: NEEDED PER PROVIDER ORDERS Last Admin: 03/01/19 05:44 Dose: 10 ml Sodium Chloride (Normal Saline Flush 0.9%) 10 ml IVP 0100,0900,1700 [facility] Last Admin: 03/02/19 10:28 Dose: 10 ml Pantoprazole [Protonix] 40 mg PO QDAC 12/09/15 lisinopriL [Lisinopril] 10 mg PO DAILY 12/09/15 Albuterol Sulfate [Proair Hfa Inhaler] 2 puffs INH Q4H PRN 05/01/17 Tiotropium [place] [Spiriva] 1 puffs INH DAILY 05/01/17 Atorvastatin [Lipitor] 10 mg PO QPM 08/10/18 Cyanocobalamin (Vitamin B-12) [Vitamin B-12] 1,000 mcg PO DAILY 08/10/18 Ferrous Sulfate 1 tab PO BID 08/10/18 Fluticasone [Flonase] 1 sprays TEAG[place] BID 08/10/18 Fluticasone/Vilanterol [Breo Ellipta 200-25 Mcg INH] 1 each IH DAILY 08/10/18 Albuterol 2.5 mg INH Q4H PRN 02/28/19 Ibuprofen [Advil] 200 - 400 mg PO Q6H PRN 02/28/19
[2019-03-02] MEDS: lisinopriL 5 MG TABLET PO SCH (13:11)
[2019-03-02] MEDS: SODIUM CHLORIDE FLUSH 0.9% 10 ML SYRINGE IVP PRN ×2 (13:18→21:36)
[2019-03-02] MEDS: FERROUS SULFATE 325 MG TABLET PO SCH (17:34)
[2019-03-02] MEDS: guaiFENesin 100 MG/5 ML UDC PO PRN (17:43)
[2019-03-03 04:28] LABS: BASOPHILS % (AUTO) 0.2 %; HGB - HEMOGLOBIN 9.9 g/dL (12.0-16.0); LYMPHOCYTES # (AUTO) 0.8 10^3/uL (1.5-3.5); LYMPHOCYTES % (AUTO) 8.3 %; MEAN CORPUSCULAR HEMOGLOBIN 29.6 pg (27.0-31.0); MEAN CORPUSCULAR VOLUME 95.5 fL (81.0-99.0); MEAN PLATELET VOLUME 9.5 fL (7.9-10.8); MONOCYTES # (AUTO) 0.7 10^3/uL (0.0-1.0); MONOCYTES % (AUTO) 6.9 %; NEUTROPHILS # (AUTO) 7.8 10^3/uL (1.5-6.6); NEUTROPHILS % (AUTO) 80.4 %; PLT - PLATELET COUNT 252 10^3/uL (130-450); RED BLOOD COUNT 3.34 10^6/uL (4.20-5.40); RED CELL DISTRIBUTION WIDTH 13.1 % (12.0-15.0); WHITE BLOOD COUNT 9.7 x10^3/uL (4.8-10.8)
[2019-03-03 04:32] LABS: CALCIUM 8.1 mg/dL (8.5-10.3); CREATININE 0.8 mg/dL (0.4-1.0)
[2019-03-03] MEDS: SODIUM CHLORIDE FLUSH 0.9% 10 ML SYRINGE IVP PRN ×3 (05:08→21:57)
[2019-03-03] MEDS: PIPERACILLIN/TAZOBACTAM 3.375 GM in SODIUM CHLORIDE 0.9% MINIBAG 100 ML IV SCH ×4 (05:09→21:57)
[2019-03-03] MEDS: CLOTRIMAZOLE 10 MG LOZENGE MM SCH ×5 (05:09→21:38)
[2019-03-03] MEDS: methylPREDNISolone SUCCINATE 40 MG/ML VIAL IVP SCH ×3 (06:20→21:51)
[2019-03-03] MEDS: PANTOPRAZOLE 40 MG TABLET PO SCH (06:20)
[2019-03-03] MEDS: LEVALBUTEROL 1.25 MG/3 ML NEB INH SCH ×4 (07:43→20:51)
[2019-03-03] MEDS: FORMOTEROL FUMARATE NEB 20 MCG/2 ML INH SCH ×2 (07:43→20:51)
[2019-03-03] MEDS: BUDESONIDE 0.5 MG/2 ML NEB INH SCH ×2 (07:44→20:50)
[2019-03-03 08:40] LABS: ABSOLUTE RETICS # AUTO 0.063 10^6/uL (0.020-0.110); RED BLOOD COUNT 3.67 10^6/uL (4.20-5.40)
[2019-03-03] MEDS: ENOXAPARIN 40 MG/0.4 ML SYRINGE SUBQ SCH (09:03)
[2019-03-03] MEDS: guaiFENesin 100 MG/5 ML UDC PO PRN ×2 (09:03→22:42)
[2019-03-03] MEDS: FLUTICASONE NASAL SPRAY NAS SCH ×2 (09:04→21:39)
[2019-03-03] MEDS: guaiFENesin 600 MG TABLET PO SCH ×2 (09:04→21:38)
[2019-03-03] MEDS: ACETAMINOPHEN 325 MG TABLET PO PRN ×2 (09:04→22:42)
[2019-03-03] MEDS: FERROUS SULFATE 325 MG TABLET PO SCH ×2 (09:04→16:58)
[2019-03-03] MEDS: SACCHAROMYCES BOULARDII 250 MG CAPSULE PO SCH ×2 (09:04→16:58)
[2019-03-03] MEDS: AZITHROMYCIN 250 MG TABLET PO SCH (09:04)
[2019-03-03] MEDS: SIMETHICONE CHEW 80 MG TABLET PO SCH ×4 (09:04→21:38)
[2019-03-03] MEDS: lisinopriL 5 MG TABLET PO SCH (09:04)
[2019-03-03 10:09] LABS: % IRON SATURATION 36 % (20-50); IRON 92 ug/dL (28-170); TOTAL IRON BINDING CAPACITY 253 ug/dL (250-450); TRANSFERRIN 181 mg/dL (192-382)
[2019-03-03] MEDS: SODIUM CHLORIDE FLUSH 0.9% 10 ML SYRINGE IVP SCH ×3 (11:24→17:03)
--- NOTE | 2019-03-03 11:44 | XRAY Report ---
Reason: SOB Procedure Date: 03/03/2019 Accession Number: [id number] / [id number] Procedure: XR - Chest 1 View X-Ray CPT Code: 61523 Final Report FULL RESULT: EXAM: CHEST RADIOGRAPHY EXAM DATE: 03/03/2019 10:50 AM. CLINICAL HISTORY: Shortness of breath. COMPARISON: CHEST 2 VIEW 02/28/2019 11:31 AM CHEST 2 VIEW 01/05/2019 11:28 AM CHEST ANGIO 04/30/2017 9:57 PM CHEST 2 VIEW 08/10/2018 3:17 PM. TECHNIQUE: 1 view. FINDINGS: Lungs/Pleura: There is a persistent dense opacity in the right lung base with blunting of the costophrenic angle. The left lung is grossly clear. No pneumothorax is evident. Previous lower right lung surgery is evident. Mediastinum: The cardiac and mediastinal silhouettes appear stable. Other: None. IMPRESSION: Persistent dense opacity in the right lung base and blunted costophrenic angle. RADIA
[2019-03-03] MEDS ORDERED: hydrALAZINE INJ 20 MG/ML VIAL IVP PRN (16:18)
--- NOTE | 2019-03-03 16:20 | PROVIDER PROGRESS NOTE ---
Assessment/Plan - Problem List (1) Pneumonia Qualifiers: Pneumonia type: due to unspecified organism Laterality: right Lung location: lower lobe of lung Qualified Code(s): J18.9 - Pneumonia, unspecified organism Assessment/Plan: 03/03 pt complain of SOB, but pt has baseline of advanced COPD, as his baseline exertion SOB. CXR reveals stable, continue use antibiotics 03/02 pt feel she has limited improved, she report she still some shortness of breath on exertion. however pt's lung sound is significant improved. pt has 96/97% on 3 liter of O2. pt took 2-3 liter of O2 at home. continue Azithyromycin, continue Zosyn sputum culture is pending continue breath treatment, and supplement of O2 CXR reveals right lobe pneumonia. pt still present significant wheezing, and crackles specially at right lower lung. blood culture is negative for bacteremia. add Azithyromycin, continue Zosyn increase Solu-medrol to 80 mg Tid sputum culture breath treatment Acute respiratory failure with hypoxia: Pt used 2-3 liter of O2 at home. pt present shortness of breath, cough, wheezing, fever, chill at admission. contributing factors of baseline severe COPD with emphysema, and recurrent pneumonia. continue antibiotics, and breath treatment, supplement of O2 as needed Oropharyngeal candidiasis: controlled, continue Nystatin. it is likely by steroid and antibiotics usage at home Weight loss: -03/02 if clinic pt still report limited improved, CT of chest be consideration. CXR did not reveal nodule. it is Likely due to severe COPD plus infection, we will continue monitor to see if pt need further study. consult with education dean COPD with exacerbation: 03/03 pt's lung sound is improved, reduced solu-metrol to 60mg tid 03/02. pt's wheezing sound is significantly improved. continue IV of solu- medrol, antibiotics, Duoneb, Albuterol PRN, and supplement of O2 Continue Xopenex, budesonide, and formoterol while inpatient increase solu-metrol to 80 mg Tid since pt clinically did not have much improved, still present significant wheezing and crackles sound Hypertension: stable, continue Lisinopril at home - Current Meds Current Meds: Current Medications Generic Name Dose Route Start Last Admin Trade Name Freq PRN Reason Stop Dose Admin Acetaminophen 650 mg 02/28/19 14:18 03/03/19 09:04 Tylenol PO 650 mg Q4HR PRN Administration Pain or Fever > 38C (100.4F) Azithromycin 250 mg 03/01/19 09:00 03/03/19 09:04 Zithromax PO 250 mg DAILY KATHLEEN Administration Budesonide 0.5 mg 02/28/19 19:00 03/03/19 07:44 Pulmicort INH 0.5 mg RTBID KATHLEEN Administration Clotrimazole 10 mg 02/28/19 15:00 03/03/19 14:01 MM 03/14/19 14:59 10 mg 5XD KATHLEEN Administration Enoxaparin Sodium 40 mg 02/28/19 16:45 03/03/19 09:03 Lovenox SUBQ 40 mg DAILY KATHLEEN Administration Ferrous Sulfate 325 mg 03/02/19 17:00 03/03/19 09:04 Feosol PO 325 mg BIDWM KATHLEEN Administration Fluticasone Propionate 1 sprays 02/28/19 21:00 03/03/19 09:04 Flonase TEAGAN 1 spr BID KATHLEEN Administration Formoterol Fumarate 20 mcg 02/28/19 19:00 03/03/19 07:43 Perforomist INH 20 mcg RTBID KATHLEEN Administration Guaifenesin 600 mg 02/28/19 17:25 03/03/19 09:04 Mucinex PO 600 mg BID KATHLEEN Administration Guaifenesin 100 mg 02/28/19 21:46 03/03/19 09:03 Robitussin Liquid PO 100 mg Q6HR PRN Administration Cough Piperacillin Sod/Tazobactam 100 mls @ 200 mls/hr 02/28/19 17:00 03/03/19 12:06 Sod 3.375 gm/ Sodium Chloride IV Infused Q6H KATHLEEN Infusion Levalbuterol HCl 1.25 mg 03/02/19 11:00 03/03/19 11:26 Xopenex INH 1.25 mg RTQID KATHLEEN Administration Methylprednisolone 60 mg 03/03/19 14:00 03/03/19 14:01 Solu-Medrol (40mg Vial) IVP 60 mg TID KATHLEEN Administration Pantoprazole Sodium 40 mg 03/01/19 07:00 03/03/19 06:20 Protonix PO 40 mg QDAC KATHLEEN Administration Saccharomyces Boulardii 250 mg 03/01/19 17:00 03/03/19 09:04 Florastor PO 250 mg BIDWM KATHLEEN Administration Simethicone 80 mg 02/28/19 18:00 03/03/19 14:00 Mylicon PO 80 mg 0900,1300,1800,2100 KATHLEEN Administration Sodium Chloride 10 ml 02/28/19 12:53 03/03/19 05:08 Normal Saline Flush 0.9% IVP 10 ml PRN PRN Administration NEEDED PER PROVIDER ORDERS Sodium Chloride 10 ml 02/28/19 17:00 03/03/19 11:25 Normal Saline Flush 0.9% IVP 10 ml 0100,0900,1700 KATHLEEN Administration - Lab Result Fish Bone Diagrams: 03/03/19 04:15 03/03/19 04:15 - Additional Planning My Orders: My Active Orders 03/03/19 14:00 methylPREDNISolone SUCCINATE [SOLU-Medrol (40MG VIAL)] 60 mg IVP TID 03/03/19 16:18 hydrALAZINE INJ [Apresoline Inj] 10 mg IVP QID PRN 03/04/19 05:00 BMP - BASIC METABOLIC PANEL [CHEM] DAILYLAB CBC - COMP BLD CT W/AUTO DIFF [HEME] DAILYLAB 03/04/19 09:00 lisinopriL [Zestril] 20 mg PO DAILY 03/05/19 05:00 BMP - BASIC METABOLIC PANEL [CHEM] DAILYLAB CBC - COMP BLD CT W/AUTO DIFF [HEME] DAILYLAB 03/06/19 05:00 BMP - BASIC METABOLIC PANEL [CHEM] DAILYLAB CBC - COMP BLD CT W/AUTO DIFF [HEME] DAILYLAB 03/02/19 17:00 Ferrous Sulfate [Feosol] 325 mg PO BIDWM Subjective - Subjective Patient Reports: Shortness of Breath Objective Vital Signs: Vital Signs - 24 hr 03/02/19 03/02/19 03/03/19 20:39 21:00 00:56 Temperature 36.6 C 36.6 C Heart Rate 100 Heart Rate [ 92 84 Brachial] Respiratory 20 16 18 Rate Blood Pressure 172/59 H 149/56 H [Right Brachial artery] O2 Saturation 95 93 03/03/19 03/03/19 03/03/19 04:21 07:44 09:00 Temperature 36.6 C 36.7 C Heart Rate 85 Heart Rate [ 75 80 Brachial] Respiratory 24 16 22 Rate Blood Pressure 153/62 H 160/61 H [Right Brachial artery] O2 Saturation 96 96 03/03/19 03/03/19 03/03/19 11:26 13:00 16:00 Temperature 36.5 C 36.9 C Heart Rate 85 Heart Rate [ 102 H 86 Brachial] Respiratory 16 23 20 Rate Blood Pressure 160/61 H 173/68 H [Right Brachial artery] O2 Saturation 94 93 Oxygen O2 Source [Without Activity] Nasal cannula O2 Source Nasal cannula Oxygen Flow Rate 6 I&O (Last 24 Hrs): Intake and Output Totals x24h 03/01/19 03/02/19 03/03/19 23:59 23:59 23:59 Intake Total 1270 1440 650 Output Total 625 450 500 Balance 645 990 150 General: Alert, Oriented x3, Mild distress HEENT: Atraumatic, PERRLA Neck: Supple Lymphatic: no adenopathy Neuro: Alert, Non Focal, Oriented Times 3 Cardiovascular: Regular rate, Normal S1, Normal S2 Respiratory: Chest non-tender Abdomen: Normal bowel sounds, Soft Extremities: No edema, Normal pulses - Results Results: Laboratory Results WBC 9.7 x10^3/uL (4.8-10.8) 03/03/19 04:15 RBC 3.67 10^6/uL (4.20-5.40) L 03/03/19 08:03 Hgb 9.9 g/dL (12.0-16.0) L 03/03/19 04:15 Hct 31.9 % (37.0-47.0) L 03/03/19 04:15 MCV 95.5 fL (81.0-99.0) 03/03/19 04:15 MCH 29.6 pg (27.0-31.0) 03/03/19 04:15 MCHC 31.0 g/dL (32.0-36.0) L 03/03/19 04:15 RDW 13.1 % (12.0-15.0) 03/03/19 04:15 Plt Count 252 10^3/uL (130-450) 03/03/19 04:15 MPV 9.5 fL (7.9-10.8) 03/03/19 04:15 Reticulocyte % (Auto) 1.72 % (0.5-2.3) 03/03/19 08:03 Neut # (Auto) 7.8 10^3/uL (1.5-6.6) H 03/03/19 04:15 Lymph # (Auto) 0.8 10^3/uL (1.5-3.5) L 03/03/19 04:15 [place] # (Auto) 0.7 10^3/uL (0.0-1.0) 03/03/19 04:15 Eos # (Auto) 0.0 10^3/uL (0.0-0.7) 03/03/19 04:15 Baso # (Auto) 0.0 10^3/uL (0.0-0.1) 03/03/19 04:15 Absolute Nucleated RBC 0.00 x10^3/uL 03/03/19 04:15 Nucleated RBC % 0.0 /100WBC 03/03/19 04:15 Absolute Retic 0.063 10^6/uL (0.020-0.110) 03/03/19 08:03 Sodium 143 mmol/L (135-145) 03/03/19 04:15 Potassium 3.5 mmol/L (3.5-5.0) 03/03/19 04:15 Chloride 104 mmol/L (101-111) 03/03/19 04:15 Carbon Dioxide 33 mmol/L (21-32) H 03/03/19 04:15 Anion Gap 6.0 (6-13) 03/03/19 04:15 BUN 21 mg/dL (6-20) H 03/03/19 04:15 Creatinine 0.8 mg/dL (0.4-1.0) 03/03/19 04:15 Estimated GFR (MDRD) 70 (>89) L 03/03/19 04:15 Glucose 150 mg/dL (70-100) H 03/03/19 04:15 Lactic Acid 0.7 mmol/L (0.5-2.2) 02/28/19 11:19 Calcium 8.1 mg/dL (8.5-10.3) L 03/03/19 04:15 Magnesium 2.5 mg/dL (1.7-2.8) 03/01/19 06:00 Iron 92 ug/dL (28-170) 03/03/19 08:03 TIBC 253 ug/dL (250-450) 03/03/19 08:03 % Saturation 36 % (20-50) 03/03/19 08:03 Transferrin 181 mg/dL (192-382) L 03/03/19 08:03 Ferritin 54.0 ng/mL (11.0-306.8) 03/03/19 08:03 Total Bilirubin 1.1 mg/dL (0.2-1.0) H 02/28/19 11:04 AST 15 IU/L (10-42) 02/28/19 11:04 ALT 18 IU/L (10-60) 02/28/19 11:04 Alkaline Phosphatase 45 IU/L (42-121) 02/28/19 11:04 Lactate Dehydrogenase 150 IU/L (91-225) 03/03/19 08:03 B-Natriuretic Peptide 19 pg/mL (5-100) 02/28/19 11:19 Total Protein 6.7 g/dL (6.7-8.2) 02/28/19 11:04 Albumin 3.8 g/dL (3.2-5.5) 02/28/19 11:04 Globulin 2.9 g/dL (2.1-4.2) 02/28/19 11:04 Albumin/Globulin Ratio 1.3 (1.0-2.2) 02/28/19 11:04 Lipase 23 U/L (22-51) 02/28/19 11:04 Vitamin B12 548 pg/mL (180-914) 03/03/19 08:03 Urine Color YELLOW 02/28/19 14:05 Urine Clarity CLEAR (CLEAR) 02/28/19 14:05 Urine pH 5.5 PH (5.0-7.5) 02/28/19 14:05 Ur Specific [place] >=1.030 (1.002-1.030) H 02/28/19 14:05 Urine Protein NEGATIVE mg/dL (NEGATIVE) 02/28/19 14:05 Urine Glucose (UA) NEGATIVE mg/dL (NEGATIVE) 02/28/19 14:05 Urine Ketones NEGATIVE mg/dL (NEGATIVE) 02/28/19 14:05 Urine Occult Blood NEGATIVE (NEGATIVE) 02/28/19 14:05 Urine Nitrite NEGATIVE (NEGATIVE) 02/28/19 14:05 Urine Bilirubin NEGATIVE (NEGATIVE) 02/28/19 14:05 Urine Urobilinogen 0.2 (NORMAL) E.U./dL (NORMAL) 02/28/19 14:05 Ur Leukocyte Esterase NEGATIVE (NEGATIVE) 02/28/19 14:05 Ur Microscopic Review NOT INDICATED 02/28/19 14:05 Urine Culture Comments NOT INDICATED 02/28/19 14:05 Influenza A (Rapid) Negative (Negative) 02/28/19 14:40 Influenza B (Rapid) Negative (Negative) 02/28/19 14:40 - Procedures Procedures: Procedures EXCISION OF DUODENUM, ENDO, DIAGN (10/26/18) EXCISION OF RECTUM, ENDO (10/26/18) EXCISION OF STOMACH, PYLORUS, ENDO, DIAGN (10/26/18) EXCISION OF UTERUS, ENDO (08/12/18) EXTRACTION OF ENDOMETRIUM, ENDO (08/12/18) Sepsis Event Note (H) - Evaluation Current Stage of Sepsis: Ruled out ABX Reporting Has patient been on IV antibiotics over the past 48 hours?: Yes Current Medications - Current Medications Current Medications: Active Medications Acetaminophen (Tylenol) 650 mg PO Q4HR PRN PRN Reason: Pain or Fever > 38C (100.4F) Last Admin: 03/03/19 09:04 Dose: 650 mg Azithromycin (Zithromax) 250 mg PO DAILY [facility] Last Admin: 03/03/19 09:04 Dose: 250 mg Budesonide (Pulmicort) 0.5 mg INH RTBID [facility] Last Admin: 03/03/19 20:50 Dose: 0.5 mg Calcium Carbonate/Glycine (Tums) 500 mg PO QID PRN PRN Reason: Heartburn Clotrimazole () 10 mg MM 5XD [facility] Stop: 03/14/19 14:59 Last Admin: 03/03/19 17:08 Dose: 10 mg Enoxaparin Sodium (Lovenox) 40 mg SUBQ DAILY [facility] Last Admin: 03/03/19 09:03 Dose: 40 mg Ferrous Sulfate (Feosol) 325 mg PO BIDWM [facility] Last Admin: 03/03/19 16:58 Dose: 325 mg Fluticasone Propionate (Flonase) 1 sprays TEAGAN BID [facility] Last Admin: 03/03/19 09:04 Dose: 1 spr Formoterol Fumarate (Perforomist) 20 mcg INH RTBID [facility] Last Admin: 03/03/19 20:51 Dose: 20 mcg Guaifenesin (Mucinex) 600 mg PO BID [facility] Last Admin: 03/03/19 09:04 Dose: 600 mg Guaifenesin (Robitussin Liquid) 100 mg PO Q6HR PRN PRN Reason: Cough Last Admin: 03/03/19 09:03 Dose: 100 mg Hydralazine HCl (Apresoline Inj) 10 mg IVP QID PRN PRN Reason: Hypertensive Emergency Piperacillin Sod/Tazobactam (Sod 3.375 gm/ Sodium Chloride) 100 mls @ 200 mls/hr IV Q6H [facility] Last Infusion: 03/03/19 17:28 Dose: Infused Ibuprofen (Motrin) 600 mg PO Q6HR PRN PRN Reason: PAIN Levalbuterol HCl (Xopenex) 1.25 mg INH Q4H PRN PRN Reason: Shortness of Air/Wheezing Levalbuterol HCl (Xopenex) 1.25 mg INH RTQID [facility] Last Admin: 03/03/19 20:51 Dose: 1.25 mg Lisinopril (Zestril) 20 mg PO DAILY [facility] Methylprednisolone (Solu-Medrol (40mg Vial)) 60 mg IVP TID [facility] Last Admin: 03/03/19 14:01 Dose: 60 mg Pantoprazole Sodium (Protonix) 40 mg PO QDAC [facility] Last Admin: 03/03/19 06:20 Dose: 40 mg Saccharomyces Boulardii (Florastor) 250 mg PO BIDWM [facility] Last Admin: 03/03/19 16:58 Dose: 250 mg Simethicone (Mylicon) 80 mg PO 0900,1300,1800,2100 [facility] Last Admin: 03/03/19 17:08 Dose: 80 mg Sodium Chloride (Normal Saline Flush 0.9%) 10 ml IVP PRN PRN PRN Reason: NEEDED PER PROVIDER ORDERS Last Admin: 03/03/19 05:08 Dose: 10 ml Sodium Chloride (Normal Saline Flush 0.9%) 10 ml IVP 0100,0900,1700 [facility] Last Admin: 03/03/19 17:03 Dose: 10 ml Pantoprazole [Protonix] 40 mg PO QDAC 12/09/15 lisinopriL [Lisinopril] 10 mg PO DAILY 12/09/15 Albuterol Sulfate [Proair Hfa Inhaler] 2 puffs INH Q4H PRN 05/01/17 Tiotropium [place] [Spiriva] 1 puffs INH DAILY 05/01/17 Atorvastatin [Lipitor] 10 mg PO QPM 08/10/18 Cyanocobalamin (Vitamin B-12) [Vitamin B-12] 1,000 mcg PO DAILY 08/10/18 Ferrous Sulfate 1 tab PO BID 08/10/18 Fluticasone [Flonase] 1 sprays TEAGAN BID 08/10/18 Fluticasone/Vilanterol [Breo Ellipta 200-25 Mcg INH] 1 each IH DAILY 08/10/18 Albuterol 2.5 mg INH Q4H PRN 02/28/19 Ibuprofen [Advil] 200 - 400 mg PO Q6H PRN 02/28/19
[2019-03-04] MEDS: SODIUM CHLORIDE FLUSH 0.9% 10 ML SYRINGE IVP SCH ×2 (01:07→08:49)
[2019-03-04] MEDS: guaiFENesin 100 MG/5 ML UDC PO PRN (03:58)
[2019-03-04] MEDS: PIPERACILLIN/TAZOBACTAM 3.375 GM in SODIUM CHLORIDE 0.9% MINIBAG 100 ML IV SCH ×2 (05:17→11:43)
[2019-03-04] MEDS: LEVALBUTEROL 1.25 MG/3 ML NEB INH SCH ×2 (05:22→10:42)
[2019-03-04] MEDS: FORMOTEROL FUMARATE NEB 20 MCG/2 ML INH SCH (05:22)
[2019-03-04] MEDS: BUDESONIDE 0.5 MG/2 ML NEB INH SCH (05:22)
[2019-03-04 05:42] LABS: BASOPHILS % (AUTO) 0.3 %; HGB - HEMOGLOBIN 10.8 g/dL (12.0-16.0); LYMPHOCYTES % (AUTO) 8.1 %; MEAN CORPUSCULAR HEMOGLOBIN 29.5 pg (27.0-31.0); MEAN CORPUSCULAR HGB CONC 30.9 g/dL (32.0-36.0); MEAN CORPUSCULAR VOLUME 95.6 fL (81.0-99.0); MEAN PLATELET VOLUME 9.6 fL (7.9-10.8); MONOCYTES % (AUTO) 8.3 %; NEUTROPHILS % (AUTO) 75.5 %; PLT - PLATELET COUNT 291 10^3/uL (130-450); RED BLOOD COUNT 3.66 10^6/uL (4.20-5.40); RED CELL DISTRIBUTION WIDTH 13.2 % (12.0-15.0)
[2019-03-04 05:51] LABS: ABNORMAL LYMPHS % (MANUAL) 0 %
[2019-03-04 05:52] LABS: CALCIUM 8.2 mg/dL (8.5-10.3); CREATININE 0.8 mg/dL (0.4-1.0)
[2019-03-04] MEDS: CLOTRIMAZOLE 10 MG LOZENGE MM SCH ×3 (05:58→13:42)
[2019-03-04] MEDS: methylPREDNISolone SUCCINATE 40 MG/ML VIAL IVP SCH ×2 (05:58→13:42)
[2019-03-04] MEDS: PANTOPRAZOLE 40 MG TABLET PO SCH (05:58)
[2019-03-04 06:36] LABS: BAND NEUTROPHILS % (MANUAL) 4 %; LYMPHOCYTES # (MANUAL) 1.2 10^3/uL (1.5-3.5); LYMPHOCYTES % (MANUAL) 9 %; METAMYELOCYTES % (MANUAL) 3 %; MONOCYTES # (MANUAL) 1.4 10^3/uL (0.0-1.0); MYELOCYTES % (MANUAL) 3 %
[2019-03-04 06:37] LABS: DIFFERENTIAL COMMENT MANUAL DIFFERENTIAL; PLATELET ESTIMATE, MANUAL NORMAL (130-450,000) (NORMAL); RBC MORPHOLOGY (MULTIPLE) NORMAL APPEARANCE (NORMAL)
[2019-03-04] MEDS: ACETAMINOPHEN 325 MG TABLET PO PRN (07:01)
[2019-03-04] MEDS ORDERED: POTASSIUM CHLORIDE 20 MEQ TABLET PO SCH (07:32)
[2019-03-04] MEDS ORDERED: POTASSIUM CHLOR 10 MEQ/100 ML 10 MEQ/100 ML BAG IV SCH (07:33)
[2019-03-04] MEDS: FERROUS SULFATE 325 MG TABLET PO SCH (08:41)
[2019-03-04] MEDS: ENOXAPARIN 40 MG/0.4 ML SYRINGE SUBQ SCH (08:41)
[2019-03-04] MEDS: SIMETHICONE CHEW 80 MG TABLET PO SCH ×2 (08:41→13:42)
[2019-03-04] MEDS: guaiFENesin 600 MG TABLET PO SCH (08:41)
[2019-03-04] MEDS: SACCHAROMYCES BOULARDII 250 MG CAPSULE PO SCH (08:41)
[2019-03-04] MEDS: FLUTICASONE NASAL SPRAY NAS SCH (08:42)
[2019-03-04] MEDS: AZITHROMYCIN 250 MG TABLET PO SCH (08:47)
[2019-03-04] MEDS ORDERED: lisinopriL 20 MG TABLET PO SCH (09:00)
--- NOTE | 2019-03-04 12:39 | Discharge Plan ---
Discharge Plan Problem Reviewed?: Yes Disposition: Home, Self Care Condition: Stable Prescriptions: Cephalexin [Keflex] 250 mg PO QID #40 capsule lisinopriL [Lisinopril] 20 mg PO DAILY #20 tablet predniSONE [Deltasone] 20 mg PO [id number] #[id number] tab Saccharomyces Boulardii [Florastor] 250 mg PO DAILY #10 capsule Diet: Regular Activity Restrictions: Activity as Tolerated Shower Restrictions: No (fall precaution) Instruction Topics: Prednisone tablets, Cephalexin tablets or capsules Health Concerns: COPD, PNA Plan of Treatment: you are prescribed steroid now, and advise continue your home breathing treatment, and use your home oxygen as well. Antibiotics Keflex is prescribed for treatment of your pneumonia. Care Goals: stabilization and improvement of your medical conditions Assessment: discussed with you about the care plan, you understood Additional Instructions or Follow Up instructions: you may followup your PCP in one week, followup player piano technician as out-pt. should your symptoms return or worsen, you may present ER or call 911 for help Follow-Up Care: [facility] - Pulmonary No Smoking: If you smoke, Please STOP! Call for help. Follow-up with: Lior Jacobo MD [Primary Care Provider] -
--- NOTE | 2019-03-04 12:48 | DISCHARGE SUMMARY ---
Discharge Summary Admit Date: 02/28/19 Discharge Date: 03/04/19 Discharging Provider: FOLEY Primary Care Provider: Dr. Jacobo Condition at Discharge: Stable Discharge Disposition: Home, Self Care Discharge Facility Name: home - DIAGNOSES Admission Diagnoses: Right lower lobe pneumonia: - Acute respiratory failure with hypoxia: Oropharyngeal candidiasis: Weight loss: COPD with emphysema: Hypertension: Discharge Diagnoses with Status of Each Condition: Pneumonia stable. pt has stable around 96% sats on 3 liter of O2. pt take 3-4 liter of O2 at home. pt report she has significant improvement on her breath when she was on exertion. pt is prescribed antibiotics Keflex to be d/c home Acute respiratory failure with hypoxia: resolved. pt has stable around 96% sats on 3 liter of O2. pt take 3-4 liter of O2 at home. Oropharyngeal candidiasis: resolved Weight loss: stable COPD with exacerbation: resolved. pt has stable around 96% sats on 3 liter of O2. pt take 3-4 liter of O2 at home. pt is prescribed short term of steroid with waned off dosage. advise continue home breath treatment schedule, and safely use home oxygen Hypertension: stable, pt's Lisinopril dosage increase to 20 mg daily - [facility] History of Present Illness: refer from Ms. Navarro's HPI on 02/28/19 Paulette Gomez is a very pleasant 79 year old female with a past medical history of hypertension, hyperlipidemia, recurrent pneumonia, iron deficient anemia, chronic sinusitis, history of longstanding tobacco dependence in remission, emphysema COPD, on home oxygen for the past 8 years, pulmonary hypertension, chronic back pain, osteoarthritis, and GERD. The patient states that in mid-January her family took a trip to [place] and while on the flight, she contracted an upper respiratory infection, was treated at a [facility] clinic with oral steroids, and a course of antibiotics. Her symptoms continued, so she was seen at Dr. Mejia clinic where she saw Janet Conn last week, and prescribed prednisone and a course of antibiotics. For the past week, the patient has had progressive shortness of breath, tightness across her chest, waves of pain in her lower back, headaches, orthopnea, fatigue, non-productive cough, fevers of at least 101 F orally reported by patient, chills, loss of appetite, dizziness upon standing, mouth soreness, and weight loss of at least 6 pounds in the past 30-days. 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 She will be admitted to inpatient for IV steroids, IV antibiotics, routine respiratory cares, nebulizers, and expectorants. - HOSPITAL COURSE Hospital Course: pt was admitted for pneumonia and COPD exacerbation. pt was treated with antibiotics, IV of steroid, and breath treatment, supplement of O2 as needed. after treatment, pt's sats of O2 became stable, breathing on exertion had significant improvement. the detail hospital course is as the below Pneumonia stable. pt has stable around 96% sats on 3 liter of O2. pt take 3-4 liter of O2 at home. pt report she has significant improvement on her breath when she was on exertion. pt is prescribed antibiotics Keflex to be d/c home. pt was treated with steroid, and her WBC is varied. Acute respiratory failure with hypoxia: resolved. pt has stable around 96% sats on 3 liter of O2. pt take 3-4 liter of O2 at home. Oropharyngeal candidiasis: resolved Weight loss: stable COPD with exacerbation: resolved. pt has stable around 96% sats on 3 liter of O2. pt take 3-4 liter of O2 at home. pt is prescribed short term of steroid with waned off dosage. advise continue home breath treatment schedule, and safely use home oxygen Hypertension: stable, pt's Lisinopril dosage increase to 20 mg daily - ALLERGIES Allergies/Adverse Reactions: Allergies Allergy/AdvReac Type Severity Reaction Status Date / Time Opioids - Morphine Analogues AdvReac Nausea Verified 11/27/18 05:00 - MEDICATIONS Home Medications: Ambulatory Orders Medication Instructions Recorded Confirmed Pantoprazole [Protonix] 40 mg PO QDAC 12/09/15 02/28/19 Albuterol Sulfate [Proair Hfa 2 puffs INH Q4H PRN 05/01/17 02/28/19 Inhaler] Tiotropium [place] [Spiriva] 1 puffs INH DAILY 05/01/17 02/28/19 Atorvastatin [Lipitor] 10 mg PO QPM 08/10/18 02/28/19 Cyanocobalamin (Vitamin B-12) 1,000 mcg PO DAILY 08/10/18 02/28/19 [Vitamin B-12] Ferrous Sulfate 1 tab PO BID 08/10/18 02/28/19 Fluticasone [Flonase] 1 sprays TEAGAN BID 08/10/18 02/28/19 Fluticasone/Vilanterol [Breo 1 each IH DAILY 08/10/18 02/28/19 Ellipta 200-25 Mcg INH] Albuterol 2.5 mg INH Q4H PRN 02/28/19 02/28/19 Ibuprofen [Advil] 200 - 400 mg PO Q6H PRN 02/28/19 02/28/19 Cephalexin [Keflex] 250 mg PO QID #40 capsule 03/04/19 Saccharomyces Boulardii [Florastor] 250 mg PO DAILY #10 capsule 03/04/19 lisinopriL [Lisinopril] 20 mg PO DAILY #20 tablet 03/04/19 predniSONE [Deltasone] 20 mg PO [id number] #21 tab 03/04/19 - PHYSICAL EXAM AT DISCHARGE General Appearance: positive: No acute distress, Alert. negative: Lethargic Eyes Bilateral: positive: Normal inspection, PERRL, EOMI, No lid inflammation ENT: positive: ENT inspection nml, Pharynx nml, No signs of dehydration. negati ve: Purulent nasal drainage Neck: positive: Nml inspection, Thyroid nml, No JVD, Trachea midline. negative: Thyromegaly, Lymphadenopathy (R), Lymphadenopathy (L), Stiff neck, Tracheal deviation Respiratory: positive: Chest non-tender, No respiratory distress. negative: Wheezes, Rales, Rhonchi Cardiovascular: positive: Regular rate & rhythm, No murmur, No gallop. negative: Irregularly irregular, Extrasystoles, Tachycardia, Bradycardia, JVD present, Systolic murmur, Diastolic murmur Peripheral Pulses: positive: 2+ Abdomen: positive: Non-tender, No organomegaly, Nml bowel sounds, No distention. negative: Tenderness, Guarding, Rebound Back: positive: Nml inspection. negative: CVA tenderness (R), CVA tenderness (L) Skin: positive: Color nml, No rash, Warm, Dry. negative: Cyanosis, Diaphoresis, Pallor Extremities: positive: Non-tender, Full ROM, Nml appearance. negative: Calf tenderness, Kumar's sign/cords Neurologic/Psychiatric: positive: Oriented x3, Motor nml, Sensation nml, Mood/affect nml. negative: Weakness, Sensory loss, Facial droop, Slurred/abnml speech, Depressed mood/affect - LABS Result Diagrams: 03/04/19 05:15 03/04/19 05:15 - SEPSIS Current Stage of Sepsis: Ruled out - FOLLOW UP Follow Up: you are prescribed steroid now, and advise continue your home breathing treatment, and use your home oxygen as well. Antibiotics Keflex is prescribed for treatment of your pneumonia. you may followup your PCP in one week, followup counter control operator as out-pt. should your symptoms return or worsen, you may present ER or call 911 for help - TIME SPENT Time Spent in Discharge (Minutes): 40
[2019-03-04 13:24] VITALS: BP 163/67
[2019-03-04] MEDS: SODIUM CHLORIDE FLUSH 0.9% 10 ML SYRINGE IVP PRN (13:45)
== END 2019-03-04 14:59 | disposition home or self-care (01) | DRG 193 ==
LOC: EDUNIT# → ED 10:41 → MS2 12:53
PROVIDERS: ADMIT Nurse Practitioner; ATTEND Nurse Practitioner Gerontology
DX: J44.0 Chronic obstructive pulmonary disease with (acute) lower respiratory infection (principal); J18.9 Pneumonia, unspecified organism; J44.1 Chronic obstructive pulmonary disease with (acute) exacerbation; J96.01 Acute respiratory failure with hypoxia; E78.00 Pure hypercholesterolemia, unspecified; B37.0 Candidal stomatitis; J43.9 Emphysema, unspecified; I10 Essential (primary) hypertension; I27.20 Pulmonary hypertension, unspecified; F17.201 Nicotine dependence, unspecified, in remission; R63.4 Abnormal weight loss; Z68.21 Body mass index [BMI] 21.0-21.9, adult; E78.5 Hyperlipidemia, unspecified; K21.9 Gastro-esophageal reflux disease without esophagitis; D50.9 Iron deficiency anemia, unspecified; G89.29 Other chronic pain; M54.9 Dorsalgia, unspecified; M19.90 Unspecified osteoarthritis, unspecified site; J32.9 Chronic sinusitis, unspecified; H54.7 Unspecified visual loss; R35.1 Nocturia; Z99.81 Dependence on supplemental oxygen; Z79.51 Long term (current) use of inhaled steroids; Z79.1 Long term (current) use of non-steroidal anti-inflammatories (NSAID); Z87.01 Personal history of pneumonia (recurrent)
CPT/HCPCS: 36415; 71045; 71046; 80048; 80053; 81003; 81599; 82607; 82728; 83540; 83605; 83615; 83690; 83735; 83880; 84466; 85025; 85045; 87040; 87070; 87205; 87275; 87276; 93005; 94640; 96374; 96375; 99284; 99285; A9270; J1650; J7626; 81001; 87086

== ENCOUNTER 2019-03-25 11:40 | Outpatient (CLI) | payer MEDICARE, OTHER ==
--- NOTE | 2019-03-25 13:04 | XRAY Report ---
Reason: PNEUMONIA, COUGH Procedure Date: 03/25/2019 Accession Number: [id number] / [id number] Procedure: XR - Chest 2 View X-Ray CPT Code: 36051 Final Report FULL RESULT: EXAM: CHEST RADIOGRAPHY 2 VIEWS EXAM DATE: 03/25/2019. CLINICAL HISTORY: Pneumonia. Cough. COMPARISON: [facility] upright portable chest on 03/03/2019. Chest CT on 04/30/2017. TECHNIQUE: PA and lateral views. FINDINGS: Lungs/Pleura: Extensive interstitial and alveolar infiltrate throughout much of the right lung, for more extensive than on the prior examination. 34 mm air-fluid level in the right apex. Slight blunting of the right lateral costophrenic angle is unchanged. Pleural thickening in the lateral right apex, 11 cm long and up to 1.5 cm in thickness, not present previously. No left pleural fluid or pneumothorax. Mediastinum: Normal cardiac and mediastinal contours. Bones: Normal. IMPRESSION: Extensive interstitial and alveolar infiltrate throughout much of the right lung consistent with pneumonia. Aspiration as an etiology is a consideration. 3.5 mm air-fluid level in the medial right apex, consistent with an infected bulla, the chest CT showed a bulla in this location. Small pleural effusion in the posterior lateral right costophrenic angle, unchanged. Pleural thickening in the lateral right apex, not present on the prior chest radiograph, consistent with loculated pleural fluid. Further evaluation could be obtained with chest CT. RICHARD The call report notification system was initiated by Dr. Bill Campbell at 12:56 PM on 03/25/2019. The above call report findings were discussed with Dr. Jacobo by Dr. Bill Campbell at 01:03 PM on 03/25/2019.
== END 2019-03-25 11:41 | disposition home or self-care (01) ==
LOC: DI 11:40
PROVIDERS: ATTEND Family Medicine
DX: J18.9 Pneumonia, unspecified organism (principal); J90 Pleural effusion, not elsewhere classified
CPT/HCPCS: 71046

== ENCOUNTER 2019-04-29 21:58 | Outpatient (CLI) | payer MEDICARE, OTHER | END 2019-04-29 23:59 | disposition critical access hospital (66) | LOC: EMS 21:58 | PROVIDERS: ATTEND Surgery | DX: R07.9 Chest pain, unspecified (principal) | CPT/HCPCS: A0425; A0429 ==

== ENCOUNTER 2019-04-29 22:03 | Emergency (ER) | payer MEDICARE, OTHER ==
--- NOTE | 2019-04-30 00:09 | ED Physician Documentation ---
PD HPI BACK PAIN - Stated complaint Stated Complaint: BACK PAIN - Chief complaint Chief Complaint: Back Pain - History obtained from History obtained from: Patient - History of Present Illness Timing - onset: Today Timing - details: Gradual onset, Waxing and waning Pain level now: 6 Location: Upper, Mid, Left Quality: Pain Associated symptoms: No: Fever Similar symptoms before: Diagnosis (pneumonia) Recently seen: Admitted - Additional information Additional information: c/o left chest and left mid/upper back pain, pleuritic, gradual onset late afternoon today while at rest (sitting in chair at home). Patient was admitted to [facility] 02/28 for pneumonia and discharged 03/04. She then was admitted to [facility] 03/25 for pneumonia which involved "extensive interstitial and alveolar infiltrate throughout much of the right lung" (per radiologist's interpretation of CXR 03/25). She was discharged from [place] 04/03/19. She completed her prescribed antibiotic and is not currently on an antibiotic. Review of Systems Constitutional: denies: Fever, Chills, Sweats Cardiac: reports: Chest pain / pressure. denies: Palpitations, Pedal edema Respiratory: reports: Cough. denies: Dyspnea, Hemoptysis, Wheezing GI: reports: Reviewed and negative : denies: Dysuria, Frequency Musculoskeletal: reports: Reviewed and negative Neurologic: reports: Generalized weakness. denies: Focal weakness, Numbness PD PAST MEDICAL HISTORY - Past Medical History Past Medical History: Yes Cardiovascular: Hypertension, High cholesterol Respiratory: COPD, Emphysema, Other Neuro: None Endocrine/Autoimmune: None GI: GERD, Colon polyps [employer]: None : None HEENT: Chronic vision loss Psych: None Musculoskeletal: Osteoarthritis, Chronic back pain, Other Derm: None - Past Surgical History Past Surgical History: Yes General: Appendectomy, Colonoscopy /[employer]: Dilation and currettage, Tubal ligation, Other HEENT: Cataracts, Tonsil/Adenoidectomy - Present Medications Home Medications: Ambulatory Orders Medication Instructions Recorded Confirmed Pantoprazole [Protonix] 40 mg PO QDAC 12/09/15 02/28/19 Albuterol Sulfate [Proair Hfa 2 puffs INH Q4H PRN 05/01/17 02/28/19 Inhaler] Tiotropium Adel [Spiriva] 1 puffs INH DAILY 05/01/17 02/28/19 Atorvastatin [Lipitor] 10 mg PO QPM 08/10/18 02/28/19 Cyanocobalamin (Vitamin B-12) 1,000 mcg PO DAILY 08/10/18 02/28/19 [Vitamin B-12] Ferrous Sulfate 1 tab PO BID 08/10/18 02/28/19 Fluticasone [Flonase] 1 sprays TEAGAN BID 08/10/18 02/28/19 Fluticasone/Vilanterol [Breo 1 each IH DAILY 08/10/18 02/28/19 Ellipta 200-25 Mcg INH] Albuterol 2.5 mg INH Q4H PRN 02/28/19 02/28/19 Ibuprofen [Advil] 200 - 400 mg PO Q6H PRN 02/28/19 02/28/19 Cephalexin [Keflex] 250 mg PO QID #40 capsule 03/04/19 Saccharomyces Boulardii [Florastor] 250 mg PO DAILY #10 capsule 03/04/19 lisinopriL [Lisinopril] 20 mg PO DAILY #20 tablet 03/04/19 predniSONE [Deltasone] 20 mg PO [id number] #21 tab 03/04/19 Doxycycline Hyclate 100 mg PO BID #20 capsule 04/30/19 LORazepam [Lorazepam] 0.5 mg PO BID PRN #10 tablet 04/30/19 - Allergies Allergies/Adverse Reactions: Allergies Allergy/AdvReac Type Severity Reaction Status Date / Time Opioids - Morphine Analogues AdvReac Nausea Verified 04/29/19 22:13 - Social History Does the pt smoke?: No Smoking Status: Never smoker Does the pt drink ETOH?: No Does the pt have substance abuse?: No - Immunizations Immunizations are current?: Yes - POLST Patient has POLST: No POLST Status: Full Code PD ED PE NORMAL - Vitals Vital signs reviewed: Yes - General General: Alert and oriented X 3, No acute distress, Well developed/nourished - HEENT HEENT: Moist mucous membranes - Neck Neck: Supple, no meningeal sign - Cardiac Cardiac: No murmur - Respiratory Respiratory: No respiratory distress - Abdomen Abdomen: No: Normal bowel sounds, Soft, Non tender, Non distended, No organomegaly, Other - Back Back: No CVA TTP, No spinal TTP - Derm Derm: Normal color, Warm and dry - Extremities Extremities: No edema - Neuro Neuro: Alert and oriented X 3 PD ED PE EXPANDED - Cardiac Cardiac: Tachy, Regular Rhythm - Respiratory Respiratory: Rhonchi (all right lung luna), Decreased breath sounds (bilaterally, R>L) Results - Vitals Vitals: Oxygen O2 Source [] Nasal cannula O2 Source Nasal cannula Oxygen Flow Rate 4 - EKG (time done) No standard instances Rate: Rate (enter#) (97) Rhythm: NSR [place]: Normal Intervals: Normal [place] QRS: Normal Ischemia: Normal ST segments, Q waves (V1, V2) - Labs Labs: Laboratory Tests 04/30/19 04/30/19 04/30/19 00:40 00:40 04:45 WBC 7.9 RBC 3.27 L Hgb 9.4 L Hct 32.0 L MCV 97.9 MCH 28.7 MCHC 29.4 L RDW 14.3 Plt Count 291 MPV 9.4 Neut # (Auto) 5.3 Lymph # (Auto) 1.3 L [place] # (Auto) 0.8 Eos # (Auto) 0.3 Baso # (Auto) 0.0 Absolute Nucleated RBC 0.00 Nucleated RBC % 0.0 Sodium 138 Potassium 4.0 Chloride 99 L Carbon Dioxide 29 Anion Gap 10.0 BUN 22 H Creatinine 0.7 Estimated GFR (MDRD) 81 L Glucose 115 H Calcium 8.8 Troponin I High Sens 5.2 - Rads (name of study) cxr Radiology: Prelim report reviewed, See rad report CT chest angio Radiology: Prelim report reviewed, See rad report PD MEDICAL DECISION MAKING - ED course Complexity details: reviewed old records, reviewed results, re-evaluated patient, considered differential, d/w patient ED course: cxr has similar appearance to 03/25/19. Pain was controlled with IV morphine, only requiring small doses. She was in NAD during her ED stay, able to speak in full sentences. she continued to have left-sided pleuritic chest pain and thus CT chest angio performed and this revealed similar right-sided findings compared to previous recent studies, but now with "peripheral areas of infiltrate left upper lobe, lingula and left lower lobe" (per radiologist's interpretation; infiltrates were not seen on cxr). Despite extensive findings on these studies, most of the findings appear similar to previous, and she says she feels well enough to be discharged home. Will cover the new (left-sided) infiltrates with doxycycline, instructed to return/call 911 if worse in any way. Departure - Departure Disposition: 01 Home, Self Care Clinical Impression: Pneumonia Qualifiers: Pneumonia type: due to unspecified organism Laterality: bilateral Lung location: unspecified part of lung Qualified Code(s): J18.9 - Pneumonia, unspecified organism Condition: Good Instructions: ED Pneumonia Adult Follow-Up: Lior Jacobo MD [Primary Care Provider] - Prescriptions: Doxycycline Hyclate 100 mg PO BID #20 capsule LORazepam [Lorazepam] 0.5 mg PO BID PRN #10 tablet PRN Reason: Anxiety Discharge Date/Time: 04/30/19 09:44
[2019-04-30] MEDS ORDERED: MORPHINE 2 MG/ML CARPUJECT IVP STA ×4 (00:33→06:43)
[2019-04-30 00:45] LABS: BASOPHILS % (AUTO) 0.3 %; EOSINOPHILS # (AUTO) 0.3 10^3/uL (0.0-0.7); EOSINOPHILS % (AUTO) 3.3 %; HGB - HEMOGLOBIN 9.4 g/dL (12.0-16.0); LYMPHOCYTES # (AUTO) 1.3 10^3/uL (1.5-3.5); LYMPHOCYTES % (AUTO) 16.9 %; MEAN CORPUSCULAR HEMOGLOBIN 28.7 pg (27.0-31.0); MEAN CORPUSCULAR HGB CONC 29.4 g/dL (32.0-36.0); MEAN CORPUSCULAR VOLUME 97.9 fL (81.0-99.0); MEAN PLATELET VOLUME 9.4 fL (7.9-10.8); MONOCYTES # (AUTO) 0.8 10^3/uL (0.0-1.0); MONOCYTES % (AUTO) 10.7 %; NEUTROPHILS # (AUTO) 5.3 10^3/uL (1.5-6.6); NEUTROPHILS % (AUTO) 67.7 %; PLT - PLATELET COUNT 291 10^3/uL (130-450); RED BLOOD COUNT 3.27 10^6/uL (4.20-5.40); RED CELL DISTRIBUTION WIDTH 14.3 % (12.0-15.0); WHITE BLOOD COUNT 7.9 x10^3/uL (4.8-10.8)
[2019-04-30 00:54] LABS: CALCIUM 8.8 mg/dL (8.5-10.3); CREATININE 0.7 mg/dL (0.4-1.0)
--- NOTE | 2019-04-30 01:26 | XRAY Report ---
Reason: dyspnea, chest pain Procedure Date: 04/30/2019 Accession Number: [id number] / [id number] Procedure: XR - Chest 2 View X-Ray CPT Code: 76978 Final Report FULL RESULT: EXAM: CHEST RADIOGRAPHY EXAM DATE: 04/30/2019 01:11 AM. CLINICAL HISTORY: Dyspnea, chest pain. COMPARISON: CHEST 2 VIEW 03/25/2019 12:02 PM CHEST ANGIO 04/30/2017 9:57 PM. TECHNIQUE: Frontal and lateral views of the chest. 4 images. FINDINGS: Lungs/Pleura: Increased opacity and volume loss in right lung compared to previous CXR. Left lung overall clear with emphysematous changes evident. No pneumothorax. Suspect small right pleural effusion. Mediastinum: Rightward mediastinal shift. Normal cardiac silhouette size. Vascular calcifications along thoracic aorta. Other: None. IMPRESSION: 1. Increased opacity and volume loss in right lung with suspected small right pleural effusion. Increasing atelectasis, infection or other process not excluded. 2. Left lung appears clear. 3. Emphysema. RADIA
[2019-04-30] MEDS ORDERED: IOVERSOL 320 100 ML VIAL IVP ONE ×2 (06:30→07:08)
--- NOTE | 2019-04-30 08:22 | CT Report ---
Reason: left pleuritic CP Procedure Date: 04/30/2019 Accession Number: [id number] / [id number] Procedure: CT - ANGIO CHEST W/WO CPT Code: Final Report FULL RESULT: EXAM: CT ANGIOGRAM CHEST EXAM DATE: 04/30/2019 07:05 AM. CLINICAL HISTORY: Left pleuritic CP. COMPARISON: CHEST ANGIO 04/30/2017 9:57 PM. TECHNIQUE: Routine helical imaging was performed through the chest in the pulmonary arterial phase. IV Contrast: OPTIRAY 320. Reconstructions: Coronal 3-D MIP reconstructions. Sagittal and coronal. In accordance with CT protocol optimization, one or more of the following dose reduction techniques were utilized for this exam: automated exposure control, adjustment of mA and/or KV based on patient size, or use of iterative reconstructive technique. FINDINGS: Pulmonary Arteries: Diagnostic quality: Adequate through the segmental arteries. No evidence for acute or chronic pulmonary emboli. RV/LV is within normal limits. There is no interventricular septal bowing. There is no reflux of contrast material in the IVC. Lungs/Pleura: Post operative changes right lung with shift of the heart and mediastinum. Area of consolidation versus mass in the right upper lobe. Infiltrate with consolidation right perihilar and right middle lobe. In the right apex there is a 3.4 cm pre-existing bulla that now has an air-fluid level within it. Left apical scarring. Peripheral areas of infiltrate in the left upper lobe, left lingula and left lower lobe. Underlying centrilobular, paraseptal emphysema. Mediastinum: Shift of the heart and mediastinum towards the right. . Right hilar adenopathy. Thoracic Aorta: Unremarkable. Upper Abdomen: Liver cysts. Hyperdense Left renal cyst. Other: None. IMPRESSION: 1. No pulmonary emboli. 2.Area of consolidation versus mass in the right upper lobe. Infiltrate with consolidation right perihilar and right middle lobe. Peripheral areas of infiltrate left upper lobe, lingula and left lower lobe . Right hilar adenopathy 3. Right apical 3.4 cm bulla with air-fluid level may represent infected bulla. RADIA
[2019-04-30] MEDS ORDERED: DOXYCYCLINE 100 MG TABLET PO STA (08:47)
[2019-04-30] MEDS ORDERED: LORazepam 0.5 MG TABLET PO STA (08:48)
[2019-04-30 09:24] VITALS: BP 132/54
== END 2019-04-30 09:44 | disposition home or self-care (01) ==
LOC: EDUNIT# → ED 22:03
DX: J18.9 Pneumonia, unspecified organism (principal); I10 Essential (primary) hypertension
CPT/HCPCS: 36415; 71046; 71275; 80048; 84484; 85025; 93005; 96374; 96376; 99284; 99285; A9270; Q9967

== ENCOUNTER 2019-05-25 17:01 | Outpatient (CLI) | payer MEDICARE, OTHER ==
[2019-05-25 17:21] LABS: BASOPHILS % (AUTO) 0.2 %; EOSINOPHILS # (AUTO) 0.4 10^3/uL (0.0-0.7); EOSINOPHILS % (AUTO) 4.3 %; HGB - HEMOGLOBIN 10.1 g/dL (12.0-16.0); LYMPHOCYTES # (AUTO) 1.7 10^3/uL (1.5-3.5); LYMPHOCYTES % (AUTO) 17.4 %; MEAN CORPUSCULAR HEMOGLOBIN 28.9 pg (27.0-31.0); MEAN CORPUSCULAR HGB CONC 29.6 g/dL (32.0-36.0); MEAN CORPUSCULAR VOLUME 97.4 fL (81.0-99.0); MEAN PLATELET VOLUME 9.3 fL (7.9-10.8); MONOCYTES # (AUTO) 0.9 10^3/uL (0.0-1.0); MONOCYTES % (AUTO) 9.3 %; NEUTROPHILS # (AUTO) 6.6 10^3/uL (1.5-6.6); NEUTROPHILS % (AUTO) 68.1 %; PLT - PLATELET COUNT 327 10^3/uL (130-450); RED CELL DISTRIBUTION WIDTH 14.3 % (12.0-15.0); WHITE BLOOD COUNT 9.7 x10^3/uL (4.8-10.8)
[2019-05-25 17:25] LABS: CALCIUM 9.1 mg/dL (8.5-10.3); CREATININE 0.7 mg/dL (0.4-1.0)
== END 2019-05-25 17:02 | disposition home or self-care (01) ==
LOC: LAB 17:01
PROVIDERS: ATTEND Family Medicine
DX: M89.9 Disorder of bone, unspecified (principal); R63.4 Abnormal weight loss; J96.10 Chronic respiratory failure, unspecified whether with hypoxia or hypercapnia; R53.81 Other malaise
CPT/HCPCS: 36415; 80048; 85025

== ENCOUNTER 2019-09-14 08:07 | Outpatient (CLI) | payer MEDICARE, OTHER ==
[2019-09-14 08:20] LABS: BASOPHILS % (AUTO) 0.5 %; EOSINOPHILS # (AUTO) 0.4 10^3/uL (0.0-0.7); EOSINOPHILS % (AUTO) 6.2 %; HGB - HEMOGLOBIN 10.9 g/dL (12.0-16.0); LYMPHOCYTES # (AUTO) 2.4 10^3/uL (1.5-3.5); LYMPHOCYTES % (AUTO) 37.1 %; MEAN CORPUSCULAR HEMOGLOBIN 27.7 pg (27.0-31.0); MEAN CORPUSCULAR HGB CONC 30.4 g/dL (32.0-36.0); MEAN CORPUSCULAR VOLUME 91.3 fL (81.0-99.0); MEAN PLATELET VOLUME 9.4 fL (7.9-10.8); MONOCYTES # (AUTO) 0.7 10^3/uL (0.0-1.0); MONOCYTES % (AUTO) 10.3 %; NEUTROPHILS # (AUTO) 2.9 10^3/uL (1.5-6.6); NEUTROPHILS % (AUTO) 45.4 %; PLT - PLATELET COUNT 257 10^3/uL (130-450); RED BLOOD COUNT 3.93 10^6/uL (4.20-5.40); RED CELL DISTRIBUTION WIDTH 13.2 % (12.0-15.0); WHITE BLOOD COUNT 6.3 x10^3/uL (4.8-10.8)
[2019-09-14 08:27] LABS: CREATININE 0.8 mg/dL (0.4-1.0)
== END 2019-09-14 08:08 | disposition home or self-care (01) ==
LOC: LAB 08:07
PROVIDERS: ATTEND Family Medicine
DX: M89.9 Disorder of bone, unspecified (principal); R63.4 Abnormal weight loss; J96.10 Chronic respiratory failure, unspecified whether with hypoxia or hypercapnia; R53.81 Other malaise
CPT/HCPCS: 36415; 80048; 85025

== ENCOUNTER 2019-09-23 09:34 | Outpatient (CLI) | payer MEDICARE, OTHER ==
--- NOTE | 2019-09-23 10:25 | DEXA Report ---
Reason: POST MENOPAUSAL Procedure Date: 09/23/2019 Accession Number: [id number] / [id number] Procedure: DEX - Dexa Spine and/or Hip CPT Code: Final Report FULL RESULT: PROCEDURE: Dexa Spine and/or Hip INDICATIONS: POST MENOPAUSAL TECHNIQUE: Dual energy x-ray absorptiometry (DXA) was performed on a [employer] System. Regions measured are the AP Spine, femoral neck, and if needed forearm. COMPARISON: None. FINDINGS: Lumbar Spine: Bone Mineral Density 1.168 g/cm/cm,T score -0.1, normal Left Hip: Bone Mineral Density 0.877 g/cm/cm,T score -1.0, normal Left Femoral Neck: Bone Mineral Density 0.811 g/cm/cm, T score -1.6, osteopenia (T score greater or equal to -1.0: NORMAL) (T score from -1.1 to -2.4: OSTEOPENIA) (T score less than or equal to -2.5 to: OSTEOPOROSIS) Impression: Osteopenia. Patients with diagnosis of osteoporosis or osteopenia should have regular bone mineral density assessment. For those eligible for Medicare, routine testing is allowed once every 2 years. Testing frequency can be increased for patients who have rapidly progressing disease or for those who are receiving medical therapy to restore bone mass. Reviewed by: Atul Delvalle MD on 09/23/2019 10:24 AM PDT Approved by: Atul Delvalle MD on 09/23/2019 10:24 AM PDT Station ID: [id number]
== END 2019-09-23 09:35 | disposition home or self-care (01) ==
LOC: DI 09:34
PROVIDERS: ATTEND Family Medicine
DX: M85.89 Other specified disorders of bone density and structure, multiple sites (principal); Z78.0 Asymptomatic menopausal state
CPT/HCPCS: 77080

== ENCOUNTER 2019-10-18 07:00 | Outpatient (CLI) | payer MEDICARE, OTHER ==
[2019-10-19 10:42] LABS: BILIRUBIN,URINE NEGATIVE (NEGATIVE); GLUCOSE, URINE (UA) NEGATIVE (NEGATIVE); KETONES,URINE (UA) NEGATIVE (NEGATIVE); LEUKOCYTE ESTERASE, URINE SMALL (NEGATIVE); NITRITE,URINE NEGATIVE (NEGATIVE); OCCULT BLOOD,URINE TRACE-LYSE (NEGATIVE); PROTEIN,URINE NEGATIVE (NEGATIVE); UROBILINOGEN,URINE 0.2 (NORMAL) E.U./dL (NORMAL)
[2019-10-19 10:56] LABS: CLARITY,URINE HAZY (CLEAR)
[2019-10-19 11:01] LABS: BACTERIA,URINE Moderate /HPF (None Seen); RBC,URINE 0-5 /HPF (0-5); SQUAMOUS EPITHELIAL CELL,UR RARE Squamous (<= Few); WBC CLUMPS,URINE PRESENT
[2019-10-19 18:54] LABS: CANDIDA GROUP DNA NEGATIVE (NEGATIVE); CANDIDA KRUSEI DNA NEGATIVE (NEGATIVE); TRICHOMONAS VAGINALIS DNA NEGATIVE (NEGATIVE)
== END 2019-10-18 23:59 | disposition home or self-care (01) ==
LOC: LAB.R 07:00
PROVIDERS: ATTEND Obstetrics & Gynecology
DX: R30.0 Dysuria (principal); N89.8 Other specified noninflammatory disorders of vagina
CPT/HCPCS: 81001; 87086; 87661; 87801

== ENCOUNTER 2021-07-27 08:00 | Outpatient (CLI) | payer MEDICARE, OTHER ==
--- NOTE | 2021-07-27 18:42 | XRAY Report ---
PROCEDURE: Chest 2 View X-Ray INDICATIONS: FEVER TECHNIQUE: 2 view(s) of the chest. COMPARISON: Plain films dated 04/30/2019 FINDINGS: Surgical changes and devices: None. Lungs and pleura: No pleural effusions or pneumothorax. There is decreased, moderate right mid and u pper lung predominant pleural parenchymal density. Decreased, mild right basilar pleural-parenchymal density. Right hemithoracic volume loss is present. Mediastinum: Rightward cardiothymic seminal shift. Mediastinal contours are otherwise normal. Heart size is normal. Bones and chest wall: No suspicious bony abnormalities. Soft tissues appear unremarkable. IMPRESSION: Decreased right-sided pleural parenchymal density. Superimposed right upper lobe pneumon ia may be present. Follow-up PA and lateral chest x-rays or chest CT is recommended to ensure resolut ion, and to exclude underlying neoplasm. Reviewed by: Marcus Baez MD on 07/27/2021 6:41 PM PDT Approved by: Marcus Baez MD on 07/27/2021 6:41 PM PDT Station ID: [id number]
== END 2021-07-27 23:59 | disposition home or self-care (01) ==
LOC: DI.N 08:00
PROVIDERS: ATTEND Physician Assistant
DX: R50.9 Fever, unspecified (principal); R91.8 Other nonspecific abnormal finding of lung field

== ENCOUNTER 2021-07-27 19:11 | Emergency (ER) | payer MEDICARE, OTHER ==
[2021-07-27] MEDS ORDERED: predniSONE 20 MG TABLET PO STA (19:45)
[2021-07-27] MEDS ORDERED: cefTRIAXone 1 GM VIAL IVP STA (19:45)
[2021-07-27] MEDS ORDERED: AZITHROMYCIN 250 MG TABLET PO STA (19:45)
--- NOTE | 2021-07-27 20:37 | ED Physician Documentation ---
History of Present Illness - Stated complaint Stated Complaint: FEVER/CP/SOA/LIGHTHEADED - Chief complaint Chief Complaint: Resp - History obtained from History obtained from: Patient - History of Present Illness Timing: Today Pain level max: 0 Pain level now: 0 - Additonal information Additional information: 81-year-old female with a history of COPD and lung cancer presents to the emergency department with a cough. She was seen at the walk-in clinic and sent here for "further pneumonia evaluation". She uses 4 L of oxygen at home and her O2 levels are usually 93 to 96%. She states that normally when she develops pneumonia she receives antibiotics and steroids. Has mildly increased shortness of breath, but no distress. Worse with coughing, nothing makes it better. She has inhalers and nebulizers at home as well. Review of Systems Constitutional: reports: Fever. denies: Chills Nose: denies: Rhinorrhea / runny nose, Congestion Respiratory: reports: Cough (Green/yellow sputum) GI: denies: Nausea, Vomiting, Diarrhea Skin: denies: Rash Musculoskeletal: denies: Neck pain, Back pain Neurologic: denies: Headache PD PAST MEDICAL HISTORY - Past Medical History Past Medical History: Yes Cardiovascular: Hypertension, High cholesterol Respiratory: COPD, Emphysema, Other Neuro: None Endocrine/Autoimmune: None GI: GERD, Colon polyps [employer]: None : None HEENT: Chronic vision loss Psych: None Musculoskeletal: Osteoarthritis, Chronic back pain, Other Derm: None Other Past Medical History: Right lung cancer, was treated with radiation in summer 2020 - Past Surgical History Past Surgical History: Yes General: Appendectomy, Colonoscopy /[employer]: Dilation and currettage, Tubal ligation, Other HEENT: Cataracts, Tonsil/Adenoidectomy - Present Medications Home Medications: Ambulatory Orders Medication Instructions Recorded Confirmed Pantoprazole [Protonix] 40 mg PO QDAC 12/09/15 02/28/19 Albuterol Sulfate [Proair Hfa 2 puffs INH Q4H PRN 05/01/17 02/28/19 Inhaler] Tiotropium [place] [Spiriva] 1 puffs INH DAILY 05/01/17 02/28/19 Atorvastatin [Lipitor] 10 mg PO QPM 08/10/18 02/28/19 Cyanocobalamin (Vitamin B-12) 1,000 mcg PO DAILY 08/10/18 02/28/19 [Vitamin B-12] Ferrous Sulfate 1 tab PO BID 08/10/18 02/28/19 Fluticasone [Flonase] 1 sprays TEAGAN BID 08/10/18 02/28/19 Fluticasone/Vilanterol [Breo 1 each IH DAILY 08/10/18 02/28/19 Ellipta 200-25 Mcg INH] Albuterol 2.5 mg INH Q4H PRN 02/28/19 02/28/19 Ibuprofen [Advil] 200 - 400 mg PO Q6H PRN 02/28/19 02/28/19 Saccharomyces Boulardii [Florastor] 250 mg PO DAILY #10 capsule 03/04/19 cephALEXin [Keflex] 250 mg PO QID #40 capsule 03/04/19 lisinopriL [Lisinopril] 20 mg PO DAILY #20 tablet 03/04/19 predniSONE [Deltasone] 20 mg PO [id number] #21 tab 03/04/19 Doxycycline Hyclate 100 mg PO BID #20 capsule 04/30/19 LORazepam [Lorazepam] 0.5 mg PO BID PRN #10 tablet 04/30/19 Amox/Clav 875/125 [Augmentin] 1 tab PO Q12H #20 tablet 07/27/21 Azithromycin [Zithromax] 250 mg PO DAILY #4 tablet 07/27/21 predniSONE [Deltasone] 10 mg PO [id number] #42 tab 07/27/21 - Allergies Allergies/Adverse Reactions: Allergies Allergy/AdvReac Type Severity Reaction Status Date / Time Opioids - Morphine Analogues AdvReac Nausea Verified 07/27/21 19:19 - Social History Does the pt smoke?: No Smoking Status: Never smoker Does the pt drink ETOH?: No Does the pt have substance abuse?: No - Immunizations Immunizations are current?: Yes - POLST Patient has POLST: No POLST Status: Full Code PD ED PE NORMAL - Vitals Vital signs reviewed: Yes - General General: Alert and oriented X 3, No acute distress, Well developed/nourished - HEENT HEENT: PERRL, Moist mucous membranes - Neck Neck: Supple, no meningeal sign - Cardiac Cardiac: RRR, Strong equal pulses - Respiratory Respiratory: No respiratory distress, Clear bilaterally - Abdomen Abdomen: Soft, Non tender, Non distended - Derm Derm: Warm and dry - Extremities Extremities: No edema, No calf tenderness / cord - Neuro Neuro: Alert and oriented X 3 - Psych Psych: Normal mood, Normal affect Results - Vitals Vitals: Vital Signs - 24 hr 07/27/21 07/27/21 07/27/21 19:14 19:19 21:06 Temperature 37.4 C 37.2 C 36.8 C Heart Rate 98 72 88 Respiratory 18 20 24 Rate Blood Pressure 134/53 H 146/78 H 148/84 H O2 Saturation 99 100 96 Oxygen O2 Source [Without Activity] Nasal cannula O2 Source Nasal cannula PD MEDICAL DECISION MAKING - ED course Complexity details: reviewed results, re-evaluated patient, considered differential, d/w patient, d/w family ED course: 81-year-old female, well-appearing, nontoxic. Afebrile. Chest x-ray done earlier today shows right upper lobe pneumonia. No increased oxygen requirement. No respiratory distress. No tracheal tugging. Will place on antibiotics for home and have her follow-up with her doctor. PSI score puts her in a low risk category. Patient counseled regarding signs and symptoms for which I believe and urgent re-evaluation would be necessary. Patient with good understanding of and agreement to plan and is comfortable going home at this time This document was made in part using voice recognition software. While efforts are made to proofread this document, sound alike and grammatical errors may occur. Departure - Departure Disposition: 01 Home, Self Care Clinical Impression: Pneumonia Qualifiers: Pneumonia type: due to unspecified organism Laterality: right Lung location: upper lobe of lung Qualified Code(s): J18.9 - Pneumonia, unspecified organism Condition: Good Instructions: ED Pneumonia Adult Follow-Up: your,doctor in 1 week [Other] Prescriptions: Amox/Clav 875/125 [Augmentin] 1 tab PO Q12H #20 tablet predniSONE [Deltasone] 10 mg PO [id number] #42 tab Azithromycin [Zithromax] 250 mg PO DAILY #4 tablet Comments: Please take all antibiotics until gone. Return if you worsen. Please follow-up with your doctor for further care. Your prescriptions were sent to [facility]. Discharge Date/Time: 07/27/21 21:06
[2021-07-27 21:08] VITALS: BP 148/84
== END 2021-07-27 21:06 | disposition home or self-care (01) ==
LOC: ED 19:11
DX: J18.9 Pneumonia, unspecified organism (principal); I10 Essential (primary) hypertension; J43.9 Emphysema, unspecified; Z99.81 Dependence on supplemental oxygen
CPT/HCPCS: 36415; 96374; 99283; A9270; J7512

== ENCOUNTER 2021-09-23 23:52 | Outpatient (CLI) | payer MEDICARE | END 2021-09-23 23:53 | disposition critical access hospital (66) | LOC: EMS 23:52 | DX: R07.89 Other chest pain (principal) | CPT/HCPCS: A0425; A0429 ==

== ENCOUNTER 2021-09-24 00:01 | Emergency (ER) | payer MEDICARE ==
--- NOTE | 2021-09-24 00:05 | ED Physician Documentation ---
PD HPI CHEST PAIN - Stated complaint Stated Complaint: SOA, ARM PAIN - History obtained from History obtained from: Patient, EMS - History of Present Illness Timing - onset: How many days ago (3) Pain level now: 0 Quality: Pain Location: Left chest Improved by: Nothing Worsened by: Inspiration Associated symptoms: No: Shortness of air, Diaphoresis, Nausea, Vomiting, Feeling faint / dizzy, General Weakness, Palpitations, Cough Similar symptoms before: Has not had sx before Recently seen: Not recently seen - Additional information Additional information: BIBA for chest pain. C/O left chest pain, episodic x 3 days, worse tonight. Was evaluated by PMD recently for right-sided chest pain, had outpatient cxr. h/o lung cancer. Review of Systems Constitutional: reports: Reviewed and negative Cardiac: reports: Chest pain / pressure. 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 /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 WEIGHTS AND MEASURES: Dilation and currettage, Tubal ligation, Other HEENT: Cataracts, Tonsil/Adenoidectomy - Present Medications Home Medications: Ambulatory Orders Medication Instructions Recorded Confirmed Pantoprazole [Protonix] 40 mg PO QDAC 12/09/15 02/28/19 Albuterol Sulfate [Proair Hfa 2 puffs INH Q4H PRN 05/01/17 02/28/19 Inhaler] Tiotropium [place] [Spiriva] 1 puffs INH DAILY 05/01/17 02/28/19 Atorvastatin [Lipitor] 10 mg PO QPM 08/10/18 02/28/19 Cyanocobalamin (Vitamin B-12) 1,000 mcg PO DAILY 08/10/18 02/28/19 [Vitamin B-12] Ferrous Sulfate 1 tab PO BID 08/10/18 02/28/19 Fluticasone [Flonase] 1 sprays TEAGAN BID 08/10/18 02/28/19 Fluticasone/Vilanterol [Breo 1 each IH DAILY 08/10/18 02/28/19 Ellipta 200-25 Mcg INH] Albuterol 2.5 mg INH Q4H PRN 02/28/19 02/28/19 Ibuprofen [Advil] 200 - 400 mg PO Q6H PRN 02/28/19 02/28/19 Saccharomyces Boulardii [Florastor] 250 mg PO DAILY #10 capsule 03/04/19 cephALEXin [Keflex] 250 mg PO QID #40 capsule 03/04/19 lisinopriL [Lisinopril] 20 mg PO DAILY #20 tablet 03/04/19 predniSONE [Deltasone] 20 mg PO [id number] #21 tab 03/04/19 Doxycycline Hyclate 100 mg PO BID #20 capsule 04/30/19 LORazepam [Lorazepam] 0.5 mg PO BID PRN #10 tablet 04/30/19 Amox/Clav 875/125 [Augmentin] 1 tab PO Q12H #20 tablet 07/27/21 Azithromycin [Zithromax] 250 mg PO DAILY #4 tablet 07/27/21 predniSONE [Deltasone] 10 mg PO [id number] #42 tab 07/27/21 - Allergies Allergies/Adverse Reactions: Allergies Allergy/AdvReac Type Severity Reaction Status Date / Time Opioids - Morphine Analogues AdvReac Nausea Verified 09/24/21 00:09 - Social History Does the pt smoke?: No Smoking Status: Never smoker Does the pt drink ETOH?: No Does the pt have substance abuse?: No - Immunizations Immunizations are current?: Yes - POLST Patient has POLST: No POLST Status: Full Code PD ED PE NORMAL - Vitals Vital signs reviewed: Yes - General General: Alert and oriented X 3, No acute distress, Well developed/nourished - Cardiac Cardiac: RRR, No murmur, No gallop, No rub - Respiratory Respiratory: No respiratory distress, Other (diminished breath sounds bilateral apices) - Abdomen Abdomen: Soft, Non tender - Derm Derm: Normal color, Warm and dry - Extremities Extremities: No edema Results - Vitals Vitals: Oxygen O2 Source [] Nasal cannula O2 Source Nasal cannula Oxygen Flow Rate 4 - EKG (time done) No standard instances Rate: Rate (enter#) (90) Rhythm: NSR [place]: Normal Intervals: Normal [place] QRS: Normal Ischemia: Normal ST segments - Labs Labs: Laboratory Tests 09/24/21 09/24/21 09/24/21 00:19 00:19 00:19 WBC 5.5 RBC 3.25 L Hgb 9.5 L Hct 30.4 L MCV 93.5 MCH 29.2 MCHC 31.3 L RDW 13.7 Plt Count 226 MPV 9.1 Neut # (Auto) 3.1 Lymph # (Auto) 1.5 [place] # (Auto) 0.5 Eos # (Auto) 0.4 Baso # (Auto) 0.0 Absolute Nucleated RBC 0.00 Nucleated RBC % 0.0 Sodium 141 Potassium 3.9 Chloride 102 Carbon Dioxide 29 Anion Gap 10.0 BUN 21 H Creatinine 0.6 Estimated GFR (MDRD) 96 Glucose 166 H Calcium 9.2 Total Bilirubin 0.5 AST 17 ALT 15 Alkaline Phosphatase 49 Troponin I High Sens 3.2 Total Protein 6.8 Albumin 3.8 Globulin 3.0 Albumin/Globulin Ratio 1.3 Lipase 56 H - Rads (name of study) chest xray Radiology: Prelim report reviewed, See rad report CT chest w/wo (angio/PE study) Radiology: Prelim report reviewed, See rad report PD MEDICAL DECISION MAKING - ED course Complexity details: reviewed old records, reviewed results, re-evaluated patient, considered differential, d/w patient ED course: No concerning findings on EKG nor blood tests (normal hs-cTn; mild anemia comparable to previous results). CXR appears comparable to previous with small right pleural effusion, right apical scarring, loss of right lung volume. Her chest pain is pleuritic and she has h/o malignancy, thus PE is a concern. By age she cannot be ruled out by PERC. CT angio (PE study) performed and this shows no evidence of PE, aneurysm, dissection; again noted are chronic / unchanged findings including right lung volume loss, apical scarring, small/trace right pleural effusion. Etiology of tonight's chest pain are not apparent at this time. Results d/w patient. She is given 2mg IV morphine (she clarifies that "opioids" allergy (noted in [place] [facility]) is nausea and AMS with some opioids, but she says she has had morphine in the past without problems). She reports significant improvement with this. Prior to d/c she is also given 15mg IV toradol due to pain gradually returning. Return precautions discussed, advised to follow up with PMD Departure - Departure Disposition: 01 Home, Self Care Clinical Impression: Chest pain Qualifiers: Chest pain type: unspecified Qualified Code(s): R07.9 - Chest pain, unspecified Condition: Good Instructions: ED Chest Pain Atypical Unkn Cause Comments: The results of tonight's tests do not show the cause of your pain. The abnormalities on the chest xray and CT scan of the chest are not new findings. Follow up with your primary care provider for reevaluation. Discharge Date/Time: 09/24/21 03:35
[2021-09-24 00:24] LABS: BASOPHILS % (AUTO) 0.4 %; EOSINOPHILS # (AUTO) 0.4 10^3/uL (0.0-0.7); EOSINOPHILS % (AUTO) 6.6 %; HCT - HEMATOCRIT 30.4 % (37.0-47.0); HGB - HEMOGLOBIN 9.5 g/dL (12.0-16.0); LYMPHOCYTES # (AUTO) 1.5 10^3/uL (1.5-3.5); LYMPHOCYTES % (AUTO) 26.8 %; MEAN CORPUSCULAR HEMOGLOBIN 29.2 pg (27.0-31.0); MEAN CORPUSCULAR HGB CONC 31.3 g/dL (32.0-36.0); MEAN CORPUSCULAR VOLUME 93.5 fL (81.0-99.0); MEAN PLATELET VOLUME 9.1 fL (7.9-10.8); MONOCYTES # (AUTO) 0.5 10^3/uL (0.0-1.0); MONOCYTES % (AUTO) 9.3 %; NEUTROPHILS # (AUTO) 3.1 10^3/uL (1.5-6.6); NEUTROPHILS % (AUTO) 56.5 %; PLT - PLATELET COUNT 226 10^3/uL (130-450); RED BLOOD COUNT 3.25 10^6/uL (4.20-5.40); RED CELL DISTRIBUTION WIDTH 13.7 % (12.0-15.0); WHITE BLOOD COUNT 5.5 x10^3/uL (4.8-10.8)
[2021-09-24 00:36] LABS: ALBUMIN 3.8 g/dL (3.2-5.5); ALBUMIN/GLOBULIN RATIO 1.3 (1.0-2.2); BILIRUBIN,TOTAL 0.5 mg/dL (0.2-1.0); CALCIUM 9.2 mg/dL (8.5-10.3); CREATININE 0.6 mg/dL (0.4-1.0); POTASSIUM 3.9 mmol/L (3.5-5.0); TOTAL PROTEIN 6.8 g/dL (6.7-8.2)
--- NOTE | 2021-09-24 00:39 | XRAY Report ---
PROCEDURE: Chest 1 View X-Ray INDICATIONS: chest pain TECHNIQUE: One view of the chest was acquired. COMPARISON: 09/17/2021, 07/27/2021 FINDINGS: Surgical changes and devices: None. Lungs and pleura: Again noted is decreased right lung volume with small right pleural effusion and ri ght basilar atelectasis. Ill-defined airspace opacities and chronic scarring and pleural thickening a nd right upper lung field is again seen unchanged from prior study. Left lung is clear. No gross pneu mothorax. Mediastinum: Mediastinal contours appear normal. Heart size is normal. Bones and chest wall: No suspicious bony lesions. Overlying soft tissues appear unremarkable. IMPRESSION: Persistent small right pleural effusion with right basilar atelectasis/small infiltrate. Persistent v olume loss in right hemithorax and stable appearing right apical scarring and pleural thickening. No gross pneumothorax. Left lung remains clear. Reviewed by: Feng Navarro MD on 09/24/2021 12:38 AM PDT Approved by: Feng Navarro MD on 09/24/2021 12:38 AM PDT Station ID: [id number]
[2021-09-24] MEDS ORDERED: MORPHINE 2 MG/ML CARPUJECT IVP STA (00:53)
[2021-09-24] MEDS ORDERED: iohexoL-300 100 ML VIAL ONE (01:11)
[2021-09-24] MEDS ORDERED: iohexoL-300 100 ML VIAL IVP ONE (01:39)
--- NOTE | 2021-09-24 02:07 | CT Report ---
PROCEDURE: ANGIO CHEST W/WO INDICATIONS: pleuritic left chest pain CONTRAST: IV CONTRAST: Isovue 300 ml: 100 PO CONTRAST: *NO PO CONTRAST TECHNIQUE: After the administration of intravenous contrast, 2 mm axial images were acquired from the pulmonary apices to the posterior costophrenic angles during the arterial phase. In addition, 1 mm lung kernel and 5 mm soft tissue kernel reconstructions were performed. 3-dimensional coronal oblique maximum int ensity projection (MIP) reformats, 8 mm axial MIP, and 5 mm coronal and sagittal MPR reformats were t hen performed through the thorax. For radiation dose reduction, the following was used: automated exp osure control, adjustment of mA and/or kV according to patient size. COMPARISON: 04/30/2019 FINDINGS: Image quality: Excellent. Pulmonary arteries: Pulmonary arteries are normal in size, and demonstrate no intraluminal filling d efects to suggest central pulmonary embolism. Lungs and pleura: There is advanced centrilobular emphysema. Decreased right lung volume and mediasti nal shift to the right is again noted. Likely chronic airspace consolidation is seen in right upper t o midlung field. Chronic appearing airspace opacity in posterior aspect of lower lobe pneumonia right lung base is again seen extending to right infrahilar region. Trace right pleural effusion is noted. Pleural calcifications are again seen scattered in posterior and lateral aspect of right lung base u nchanged from prior studies. No pneumothorax. No left-sided pleural effusion. Central and peripheral airways are patent. Mediastinum: Heart size is normal, without pericardial effusion. No mediastinal or hilar adenopathy . Thoracic aorta is normal in caliber and enhancement. Esophagus is normal in caliber, without hiat al hernia. Bones and chest wall: No suspicious bony lesions. Ribs and thoracic spine appear intact throughout. No axillary or supraclavicular adenopathy. The thyroid is normal in size and there are no incident al findings. Abdomen: Visualized upper abdominal solid organs appear normal in the early arterial phase of enhanc ement. 2 x 2 x 1.4 cm hypodensity involving posterior medial aspect of the inferior right hepatic lo be is again seen unchanged from prior study and likely represent hepatic cyst. IMPRESSION: 1. No evidence of pulmonary emboli. No thoracic aortic aneurysm or gross dissection. 2. Chronic increased right lung volume and mediastinal shift to the right. 3. Advanced centrilobular emphysema. Chronic appearing airspace consolidations in right upper to midl roldan field extending to right hilar region. Chronic appearing right basilar airspace consolidations ex tending to right infrahilar region. Superimposed small acute pulmonary infiltrates in right lung bernice ot be excluded. Trace amount of right pleural effusion. No gross pneumothorax. Left lung is clear. 4. No mediastinal adenopathy by size criteria. CLINICAL RECOMMENDATION STATEMENTS: In patients <35 years with an ITN detected on CT, MRI, or extrathyroidal ultrasound, the Committee re commends further evaluation with dedicated thyroid ultrasound if the nodule is "e1 cm and has no susp icious imaging features, and if the patient has normal life expectancy. In patients "e35 years with an ITN detected on CT, MRI, or extrathyroidal ultrasound, the Committee r ecommends further evaluation with dedicated thyroid ultrasound if the nodule is "e1.5 cm and has no s uspicious imaging features, and if the patient has normal life expectancy. (ACR, 2014) Reviewed by: Feng Quiñonez MD on 09/24/2021 2:05 AM PDT Approved by: Feng Quiñonez MD on 09/24/2021 2:05 AM PDT Station ID: [id number]
[2021-09-24] MEDS ORDERED: KETOROLAC 15 MG/ML VIAL IVP STA (03:06)
[2021-09-24 03:37] VITALS: BP 149/57
== END 2021-09-24 03:35 | disposition home or self-care (01) ==
LOC: ED 00:01
DX: R07.9 Chest pain, unspecified (principal); I10 Essential (primary) hypertension
CPT/HCPCS: 36415; 71045; 71275; 80053; 83690; 84484; 85025; 93005; 96374; 96375; 99284; Q9967